=== PATIENT | female | born 1930 | race Caucasian/White ===

== ENCOUNTER 2016-11-23 11:50 | Inpatient (IN) | payer OTHER, MEDICARE ==
[~2016-11-23] VITALS: Ht 154.9 cm; Wt 68.2 kg
[~2016-11-23 11:50] MED LIST: ACIDOPHILUS1 EACH PO; ALLOPURINOL300 M1 PO; AMARYL 2 MG2 MG PO; ASPIR 8181 MG PO; ATIVAN0.5 M1 PO; BENAZEPRIL HCL20 MG PO; CALTRATE 600 +1 EACH PO; CEFTIN250 M1 PO; CENTRUM SILVER1 EAC1 PO; CEPHALEXIN250 M2 PO; CHROMIUM PIC1000 MCG PO; CO Q-10200 MG PO; CRANBERRY425 MG PO; ESTRACE42.5 GM VG; FISH OIL 1,2001 EAC2 PO; FUROSEMIDE40 M1 PO; GUAIFENESIN ER600 MG PO; ISOSORBIDE MONO60 M1 PO; JANUVIA100 M1 PO; KEFLEX500 MG PO; L-LYSINE500 M2 PO; MAGNESIUM400 M1 PO; METANX CAPSULE1 EACH PO; METFORMIN HCL1000 M1 PO; MOBIC15 M1 PO; NEURONTIN100 M1 PO; NITROFURANTOIN100 M4 PO; OMEPRAZOLE20 M2 PO; PRESERVISION A1 EAC1 PO; REFRESH TEARS15 ML OP; SIMVASTATIN40 M1 PO; SYNTHROID88 MCG PO; VITAMIN D-32000 UNI1 PO; VOLTAREN100 GM TOP; XARELTO20 M2 PO; ZITHROMAX500 M2 PO
[2016-11-23 13:00] LABS: ABSOLUTE BASOPHIL COUNT 0 /CUMM (0.0-0.2); ABSOLUTE EOSINOPHIL COUNT 0.2 /CUMM (0.0-0.7); ABSOLUTE LYMPH COUNT 2.2 /CUMM (1.2-3.4); ABSOLUTE MONOCYTE COUNT 0.8 /CUMM (0.10-0.60); BASOPHIL % 0.2 % (0.0-2.0); EOSINOPHIL % 1.4 % (0-5); GRANULOCYTE % 77.7 % (42.2-75.2); HEMATOCRIT 43.5 % (37-47); MEAN CORPUSCULAR HGB 32.1 PG (27.0-31.0); MEAN CORPUSCULAR HGB CONC 32.2 G/DL (33.0-37.0); MEAN CORPUSCULAR VOLUME 99.6 FL (81.0-99.0); PLATELET COUNT 216 /CUMM (130-400); RED BLOOD CELL CT 4.37 /CUMM (4.20-5.40); WHITE BLOOD CELL COUNT 14.2 /CUMM (4.8-10.8)
[2016-11-23 13:06] LABS: PT 13.7 SEC (9.4-12.5)
--- NOTE | 2016-11-23 13:11 | ED GI/GU/ABDOMINAL COMPLAINT ---
History of Present Illness General Chief Complaint: Abdominal Pain/Flank Pain Stated Complaint: UPPER ABDOMINAL PAIN Source: patient, family, old records, EMS Exam Limitations: no limitations Vital Signs & Intake/Output Vital Signs & Intake/Output Vital Signs Date Time Temp Pulse Resp B/P B/P Pulse O2 O2 Flow FiO2 Mean Ox Delivery Rate 11/23 1745 50 18 102/38 92 Nasal 5.0L Cannula 11/23 1647 97.0 / 1641 42 18 108/40 93 Nasal 3.0L Cannula / 1600 93 Nasal 3.0L Cannula / 1530 42 20 106/36 92 Nasal 3.0L Cannula / 1415 61 20 111/55 94 Nasal 3.0L Cannula / 1340 35 20 129/55 97 Nasal 3.0L Cannula / 1301 42 20 98/50 94 Nasal 2.0L Cannula / 1259 88 Room Air 11/23 1200 97.0 74 18 90/56 94 Room Air Allergies Coded Allergies: sulfamethoxazole (From BACTRIM) (RASH 10/01/15) thiopental (PER PT ONLY CAN HAVE A TEST DOSE 03/18/16) trimethoprim (From BACTRIM) (RASH 10/01/15) Reconcile Medications Allopurinol 300 MG TABLET 1 TAB PO DAILY KIDNEY HEALTH (Reported) Benazepril HCl 20 MG TABLET 1 TAB PO DAILY HIGH BLOOD PRESSURE (Reported) Calcium Carbonate/Vitamin D3 (Caltrate 600 + D Tablet) 600 MG-800 TABLET 1 TAB PO DAILY HEALTH SUPPLEMENT (Reported) Carboxymethylcellulose Sodium (Refresh Tears) 15 ML DROPS 1 DROP OP TID- 4XDAILY LUBRICANT- BOTH EYES (Reported) Cephalexin 250 MG CAPSULE 1 CAP PO EOD PROPHYLAXIS (Reported) Cholecalciferol (Vitamin D3) (Vitamin D-3) 2,000 UNIT CAPSULE 1 CAP PO D HEALTH SUPPLEMENT (Reported) Chromium Picolinate 1,000 MCG TABLET 0.5 TAB PO D HEALTH SUPPLEMENT (Reported ) Cranberry Extract (Cranberry) (Unknown Strength) CAPSULE (Unknown Dose) PO DAILY SUPPLEMENT (Reported) Diclofenac Sodium (Voltaren) 100 GM GEL..GRAM. 1 GM TOP EOD KNEES (Reported) apply to affected area(s) Estradiol (Estrace) (Unknown Strength) CREAM.APPL 1 TERESA VG QHS HRT (Reported) Folic Acid/Multivit-Min/Lutein (Centrum Silver Chewable Tablet) 400 MCG-250 MCG TAB.CHEW 1 TAB PO D HEALTH SUPPLEMENT (Reported) Furosemide 40 MG TABLET 1 TAB PO QAM HEART HEALTH (Reported) Gabapentin (Neurontin) 100 MG CAPSULE 1 CAP PO TID NERVE PAIN (Reported) Isosorbide Mononitrate (Isosorbide Mononitrate ER) 60 MG TAB.ER.24H 1 TAB PO DAILY HIGH BLOOD PRESSURE (Reported) Lactobacillus Acidophilus (Acidophilus) 1 EACH CAPSULE 1 CAP PO DAILY HEALTH SUPPLEMENT (Reported) Levomefolate/B6/B12/Algal Oil (Metanx Capsule) 1 EACH CAPSULE 1 CAP PO BID SUPPLEMENT (Reported) Levothyroxine Sodium (Synthroid) 88 MCG TABLET 1 TAB PO DAILY THYROID HEALTH (Reported) Lorazepam (Ativan) 0.5 MG TABLET 1 TAB PO QHS SLEEP HELP (Reported) Lysine (L-Lysine) 500 MG TABLET 1 TAB PO D HEALTH SUPPLEMENT (Reported) Magnesium Oxide (Magnesium) 400 MG CAPSULE 1 CAP PO DAILY HEALTH SUPPLEMENT ( Reported) Meloxicam (Mobic) 15 MG TABLET 1 TAB PO DAILY PRN PAIN Metformin HCl 1,000 MG TABLET 1 TAB PO BID DIABETES (Reported) [place]-3S/Dha/Epa/Fish Oil (Fish Oil 1,200 MG Softgel) 360-1,200MG CAPSULE 1 CAP PO D HEALTH SUPPLEMENT (Reported) Omeprazole 20 MG CAPSULE.DR 1 CAP PO DAILY ACID REFLUX (Reported) Rivaroxaban (Xarelto) 20 MG TABLET 1 TAB PO QPM BLOOD THINNER (Reported) with food Simvastatin (Simvastatin*) 40 MG TABLET 1 TAB PO QPM HIGH CHOLESTROL ( Reported) Sitagliptin Phosphate (Januvia) 100 MG TABLET 1 TAB PO QAM DIABETES (Reported ) Ubidecarenone (Co Q-10) (Unknown Strength) CAPSULE (Unknown Dose) PO DAILY SUPPLEMENT (Reported) Vit C/E/Zn/Coppr/Lutein/Zeaxan (Preservision Areds 2 Softgel) 1 EACH CAPSULE 1 CAP PO BID SUPPLEMENT (Reported) Triage Note: RECEIVED 86 YO FEMALE WILLAM FROM HOME WITH HX OF GALLSTONES AND CABG 1994, C/O UPPER ABDOMINAL PAIN X ONE HOUR WITH NAUSEA. B/P 90/56. O2 SATS 88% ON ROOM AIR. PT CONNECTED TO CM - A-FLUTTER WITH VR OF 57. PAIN LEVEL 7/10 AT PRESENT. Triage Nurses Notes Reviewed? yes LMP (ages 10-50): post menopausal ? n Is pt currently ? No Onset: Morning Duration: hour(s):, constant, continues in ED, getting worse Timing: recent history Quality/Severity: aching, sharpness, severe, vomiting Location: epigastric Radiation: no radiation Activities at Onset: none Prior Abdominal Problems: none Past Sexual History: Unobtainable at this time No Modifying Factors: none Associated Symptoms: abdominal pain, loss of appetite, nausea/vomiting HPI: Prior to admission after breakfast patient complains of epigastric pain described as sharp severe constant nonradiating associated with nausea vomiting feeling as if she's having a gallbladder attack. She denies fever chills chest pain cough shortness of breath headache dysuria rash bleeding previous episodes. Past History Travel History Traveled to [place] past 21 day No Medical History Any Pertinent Medical History? 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 No Review of Systems Review of Systems Constitutional: Reports: see HPI, malaise, weakness. EENTM: Reports: no symptoms. Respiratory: Reports: no symptoms. Cardiovascular: Reports: no symptoms. GI: Reports: see HPI, abdominal pain, nausea, vomiting. Genitourinary: Reports: no symptoms. Musculoskeletal: Reports: no symptoms. Skin: Reports: no symptoms. Neurological/Psychological: Reports: no symptoms. Hematologic/Endocrine: Reports: no symptoms. Immunologic/Allergic: Reports: no symptoms. All Other Systems: Reviewed and Negative Physical Exam Physical Exam General Appearance: well developed/nourished, alert, awake, anxious, severe distress Head: atraumatic, normal appearance Eyes: Bilateral: normal appearance, PERRL, EOMI, normal inspection. 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 Yes ASA ordered for poss ACS? No-ACS ruled out Severe Sepsis Present: No Septic Shock Present: No Progress Differential Diagnosis: biliary colic, cholecystitis, gastritis, pancreatitis, SBO Plan of Care: Orders Procedure Date/time Status Nothing by Mouth 11/24 B Active PROTHROMBIN TIME 11/24 0500 Active ICU LAB BUNDLE 11/24 0500 Active CBC WITHOUT DIFFERENTIAL 11/24 0500 Active TROPONIN LEVEL 11/24 0030 Active EKG 11/24 0030 Active Nothing by Mouth 11/23 D Complete ICU LAB BUNDLE 11/23 2200 Active ALKALINE PHOSPHATASE 11/23 2200 Active LACTIC ACID 11/23 1915 Active TROPONIN LEVEL 11/23 1830 Active EKG 11/23 1830 Active VRE ACTIVE SURVIELLANCE 11/23 1808 Active ACTIVE SURVEILLANCE NARES 11/23 1808 Active CULTURE,STOOL 11/23 1731 Active C.DIFFICILE 11/23 1731 Active Lab Add-on Test 11/23 1719 Active Pathway - chart 11/23 1657 Active URINALYSIS 11/23 1657 Active Code Status 11/23 1657 Active Keith, Insertion/Removal/Asses 11/23 1649 Active CULTURE,URINE 11/23 1649 Active US-LIMITED ABDOMEN 11/23 1635 Active BLOOD CULTURE 11/23 1558 Active Patient Data 11/23 1553 Active Admit to inpatient 11/23 1542 Active LACTIC ACID 11/23 1526 Complete EKG 11/23 1323 Active THYROID STIMULATING HORMONE 11/23 1237 Active THYROXINE 11/23 1237 Active LIPID PANEL 11/23 1237 Active B-TYPE NATRIURETIC PEP (BNP) 11/23 1237 Active Add-on Test (ER Only) 11/23 1234 Active BLOOD CULTURE 11/23 1226 Active TROPONIN LEVEL 11/23 1226 Active PROTHROMBIN TIME 11/23 1226 Complete MAGNESIUM 11/23 1226 Active LIPASE 11/23 1226 Active LACTIC ACID 11/23 1226 Active COMPREHENSIVE METABOLIC PANEL 11/23 1226 Active CBC WITHOUT DIFFERENTIAL 11/23 1226 Complete EKG 11/23 1202 Active Pathway - chart 11/23 UNK Active House Staff 11/23 UNK Active Lab Add-on Test 11/23 UNK Active VTE Mechanical Prophylaxis 11/23 UNK Active Vital Signs 11/23 UNK Active Telemetry/Seam Press Operator 11/23 UNK Active Intake & Output 11/23 UNK Active Hemoccult 11/23 UNK Active FingerStick- Glucose 11/23 UNK Active ECHOCARDIOGRAM 11/23 UNK Active Current Medications Sig/[place] Start time Last Medication Dose Stop Time Status Admin Ondansetron HCl 4 MG Q6P PRN 11/23 1815 UNVr (Zofran) Insulin Human Regular 0 Q6 11/23 1800 AC 11/23 (NovoLIN R) 1714 Lactated Ringer's 1,000 ML Q6H 11/23 1800 UNVr (Lactated Ringers) 11/23 2359 Atropine Sulfate 1 MG ONE PRN 11/23 1700 AC (Atropine) Morphine Sulfate 1 MG Q4P PRN 11/23 1700 AC (Morphine) Ondansetron HCl 4 MG ONCE ONE 11/23 1230 CAN (Zofran) 11/23 1231 Laboratory Tests 11/23/16 1657: TSH Cancelled 11/23/16 1614: Lactic Acid 3.1 H 11/23/16 1237: Anion Gap 11, Estimated GFR 53 L, BUN/Creatinine Ratio 35.0 H, Glucose 195 H, Lactic Acid 3.8 H, Calcium 8.7, Magnesium 3.6 H, Total Bilirubin 1.1, AST 463 H, ALT 163 H, Alkaline Phosphatase 281 H, Troponin I 0.04, Wbs-K-Jrlaniagnyl Pept 2160 H, Total Protein 6.7, Albumin 4.0, Globulin 2.7, Albumin/Globulin Ratio 1.5, Triglycerides 143, Cholesterol 143, LDL Cholesterol, Calc 16 L, HDL Cholesterol 99 H, Cholesterol/HDL Ratio 1, Lipase > 89753 H, TSH Pending, Thyroxine (T4) 12.3 H, PT 13.7 H, INR 1.31 H, CBC w Diff NO MAN DIFF REQ, RBC 4.37, MCV 99.6 H, MCH 32.1 H, RDW 16.0 H, MPV 10.0, Gran % 77.7 H, Lymphocytes % 15.4 L, Monocytes % 5.3, Eosinophils % 1.4, Basophils % 0.2, Absolute Granulocytes 11.0 H, Absolute Lymphocytes 2.2, Absolute Monocytes 0.8 H, Absolute Eosinophils 0.2, Absolute Basophils 0, PUBS MCHC 32.2 L Microbiology 11/23 180 UPPER RESP: Surveillance Culture - ORD 11/23 180 GI: Surveillance Culture - ORD 11/23 1731 STOOL: Clostridium difficile Toxin A & B - COLB 11/23 173 STOOL: Stool Culture - COLB 11/23 1649 URINE ROUT: Urine Culture - COLB 11/23 1614 BLOOD: Blood Culture - RECD 11/23 1404 BLOOD: Blood Culture - RECD Diagnostic Imaging: Viewed by Me: Radiology Read, CT Scan. Discussed w/RAD: Radiology Read, CT Scan. Radiology Impression: 1. A moderate amount of peripancreatic fluid in conjunction with peripancreatic inflammatory changes, indicative of acute pancreatitis. No rim-enhancing, organizing peripancreatic fluid collections are identified. 2. Multiple small layering gallstones within the gallbladder lumen. No intrahepatic biliary ductal dilatation. The distal common bile duct is mildly prominent and is visualized measuring up to 1 cm in diameter. There are no visible intraductal radiopaque stones. There is a minimal amount of pericholecystic fluid. Consider correlation with right upper quadrant abdominal ultrasound, which is more sensitive in evaluating the gallbladder. 3. Liquid stool within the right hemicolon as well as the transverse colon. This finding is nonspecific but can be seen in the setting of diarrhea. There are no CT findings indicative of mesenteric ischemia. Nevertheless, correlation with pancreatic enzyme levels is recommended. CXR Impression: No convincing acute pulmonary pathology. No evidence of overt pulmonary edema. Initial ED EKG: AFIB, LBBB, no ST T wave changes Prior EKG: unchanged Rhythm Strip: atrial flutter Comments: After n/v episode patient had aflutter with slow ventricular response in the mid 30s without hemodynamic instability or chest pain. Atropine administered with improvement in HR to mid 80s. HR slowly drifting into low 50s. Discussed with cardiology and GI. Limited fluid bolus secondary to ASCAD. Departure Departure Time of Disposition: 1530 Disposition: STILL A PATIENT Condition: Critical Clinical Impression Primary Impression: Pancreatitis, acute Qualifiers: Pancreatitis type: unspecified pancreatitis type Acute pancreatitis complication: unspecified Qualified Code: K85.90 - Acute pancreatitis without necrosis or infection, unspecified Secondary Impressions: Atrial fibrillation with slow ventricular response, Bradycardia Referrals: TIFF SMITH,LISET Doan (PCP/Family) Departure Forms: Customer Survey General Discharge Information Admission Note Spoke With: KALIN SMITH,SHERICE Documentation of Exam: Documentation of any treatments & extenuating circumstances including Concerns Regarding Discharge (functional status, medication knowledge or non-compliance, living conditions, etc.) that warrant an admission rather than observation: ICU monitoring NPO IV fluids IV antibiotics IV analgesia and IV antiemetics GI evaluation cardiology evaluation surgical evaluation medication adjustment continuing care discharge planning Critical Care Note Critical Care Note Critical Care Time: 30-74 min (45)
--- NOTE | 2016-11-23 13:47 | RADIOLOGY REPORT ---
EXAMINATION: XR PORTABLE CHEST CLINICAL INFORMATION: Chest pain. COMPARISON: Chest radiography 01/26/2016. TECHNIQUE: Portable frontal view of the chest was obtained. FINDINGS: Sternotomy wires with a fractured inferior most sternotomy wire demonstrated. Thoracic and abdominal surgical clips. The lungs are well expanded. No overt pulmonary edema. No consolidation suspicious for pneumonia, pleural effusion, pulmonary edema, or pneumothorax demonstrated. The cardiac contour is enlarged, similar to prior exam. Aortic atherosclerotic calcification. High riding bilateral humeri suspicious for rotator cuff pathology, left greater than right. IMPRESSION: No convincing acute pulmonary pathology. No evidence of overt pulmonary edema.
--- NOTE | 2016-11-23 15:34 | CT SCAN REPORT ---
EXAMINATION: CT ABDOMEN AND PELVIS WITH CONTRAST CLINICAL INFORMATION: Epigastric abdominal pain, nausea and vomiting. Elevated lipase levels. COMPARISON: CT abdomen and pelvis 03/18/2016. TECHNIQUE: Multidetector volumetric imaging was performed of the abdomen and pelvis before and after the IV administration of 94 mL of Optiray 320 intravenous contrast. Sagittal and coronal reformatted images were obtained on the technologist's workstation. DLP: 341 mGy-cm FINDINGS: LUNG BASES: Evaluation of the included lung bases demonstrates a moderate to large hiatal hernia the heart is enlarged. There are scattered groundglass opacities within the bilateral lung bases, which are entirely nonspecific. Rounded opacity at the periphery of the right lung base measuring 1.7 cm is nonspecific. It may represent focal atelectasis. No pleural effusions. LIVER, GALLBLADDER, AND BILIARY TREE: The liver is normal in size, shape, and attenuation. No focal hepatic lesion or intrahepatic biliary ductal dilatation is present. The gallbladder is physiologically distended. Numerous layering gallstones are identified within the gallbladder. The distal common bile duct is mildly prominent and is visualized measuring up to 1 cm in diameter. There are no radiopaque intraductal stones within the common bile duct. There is a minimal amount of pericholecystic fluid. PANCREAS: Generalized pancreatic atrophy. Of note, there are peripancreatic inflammatory changes and nonorganizing fluid surrounding the pancreas, suspicious for acute pancreatitis. No organizing peripancreatic fluid collections are identified. The splenic vein is patent. SPLEEN: Unremarkable. ADRENAL GLANDS: Unremarkable. KIDNEYS AND URETERS: A 3.0 x 3.3 cm renal cortical cysts visualized arising from the medial cortex of the upper pole of the right kidney. Surgical clips are present within the left upper quadrant of the abdomen. The left kidney is laterally displaced. No renal or ureteral stones are identified and there is no hydroureteronephrosis of either kidney or renal collecting system. BLADDER: Unremarkable. GASTROINTESTINAL TRACT: There is a moderate amount of liquid material within the large bowel, notably within the cecum and ascending colon as well as the transverse colon. This finding is entirely nonspecific but can be seen in the setting of diarrhea. Abdominal and pelvic bowel loops are normal in caliber, without findings indicative of small bowel obstruction or ileus. The appendix is not clearly visualized. There are no acute inflammatory changes within the right lower quadrant of the abdomen. No organizing intra-abdominal or pelvic fluid collections are identified and there is no free intraperitoneal air. ABDOMINAL WALL: No significant hernia is appreciated. LYMPH NODES: No significant abdominal or pelvic adenopathy. VASCULAR: Scattered atherosclerosis of the abdominal aorta and its branching vessels, without aneurysmal dilatation. PELVIC VISCERA: Unremarkable. OSSEOUS STRUCTURES: No acute osseous abnormality. Mechanical hardware related to total left hip arthroplasty. Also noted is mechanical hardware related to posterior lumbar fusion from L3 to L5. There are severe multilevel degenerative changes and facet arthrosis of the lumbar spine, notably at L2-L3, L4-L5 5 and L5-S1. There is grade 1 anterolisthesis of L3 on L4. No destructive osseous lesions are identified. IMPRESSION: 1. A moderate amount of peripancreatic fluid in conjunction with peripancreatic inflammatory changes, indicative of acute pancreatitis. No rim-enhancing, organizing peripancreatic fluid collections are identified. 2. Multiple small layering gallstones within the gallbladder lumen. No intrahepatic biliary ductal dilatation. The distal common bile duct is mildly prominent and is visualized measuring up to 1 cm in diameter. There are no visible intraductal radiopaque stones. There is a minimal amount of pericholecystic fluid. Consider correlation with right upper quadrant abdominal ultrasound, which is more sensitive in evaluating the gallbladder. 3. Liquid stool within the right hemicolon as well as the transverse colon. This finding is nonspecific but can be seen in the setting of diarrhea. There are no CT findings indicative of mesenteric ischemia. Nevertheless, correlation with pancreatic enzyme levels is recommended.
--- NOTE | 2016-11-23 16:50 | History & Physical ---
CHU AGUILAR MD 11/23/16 4868: General Information and HPI MD Statement: I have seen and personally examined PASCALE PATTERSON and documented this H&P. The patient is a 86 year old F who presented with a patient stated chief complaint of abdominal pain. Source of Information: patient, family, old records Exam Limitations: no limitations History of Present Illness: Ms. 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 Patient's daughter is also at bedside who helps provide more information during the history and physical. According to Pascale, she was in her normal state of health until this morning when around 10:15 AM she had sudden onset of acute, 10/10, stabbing epigastric pain. She had just got out of the bath when this occured and had breakfast (toast and one boiled egg) a few hours prior. This pain did not radiate and she had never experienced this before. It was associated with the subjective feeling of warmth, nausea and dry heaves. Of note, there is no recent outdoor activity and no recent history of tick bite; her history is also negative for recent sick contacts/exposure. Pascale denied chills, dizziness, chest pain, palpitations, shortness of breath, wheezing, vomiting, dysuria or constipation. Past surgical history is significant for fundoplication and CABG x 4. Social history is significant for 1 pack per week for years, though she quit when she was in her 40s. She denies alcohol or illicit drug use. She lives at home with her daughter and completed all of her ADLs/IADLs independantly. She does however use a walker when ambulating. Pascale follows with Dr. Miladis MD as her analytics consultant and her daughter reports it was previously suggested that Pascale should have a PPM (which she has, to present, refused). Allergies/Medications Allergies: Coded Allergies: sulfamethoxazole (From BACTRIM) (RASH 10/01/15) thiopental (PER PT ONLY CAN HAVE A TEST DOSE 03/18/16) trimethoprim (From BACTRIM) (RASH 10/01/15) Home Med list Allopurinol 300 MG TABLET 1 TAB PO DAILY KIDNEY HEALTH (Reported) Benazepril HCl 20 MG TABLET 1 TAB PO DAILY HIGH BLOOD PRESSURE (Reported) Calcium Carbonate/Vitamin D3 (Caltrate 600 + D Tablet) 600 MG-800 TABLET 1 TAB PO DAILY HEALTH SUPPLEMENT (Reported) Carboxymethylcellulose Sodium (Refresh Tears) 15 ML DROPS 1 DROP OP TID- 4XDAILY LUBRICANT- BOTH EYES (Reported) Cephalexin 250 MG CAPSULE 1 CAP PO EOD PROPHYLAXIS (Reported) Cholecalciferol (Vitamin D3) (Vitamin D-3) 2,000 UNIT CAPSULE 1 CAP PO D HEALTH SUPPLEMENT (Reported) Chromium Picolinate 1,000 MCG TABLET 0.5 TAB PO D HEALTH SUPPLEMENT (Reported ) Cranberry Extract (Cranberry) (Unknown Strength) CAPSULE (Unknown Dose) PO DAILY SUPPLEMENT (Reported) Diclofenac Sodium (Voltaren) 100 GM GEL..GRAM. 1 GM TOP EOD KNEES (Reported) apply to affected area(s) Estradiol (Estrace) (Unknown Strength) CREAM.APPL 1 TERESA VG QHS HRT (Reported) Folic Acid/Multivit-Min/Lutein (Centrum Silver Chewable Tablet) 400 MCG-250 MCG TAB.CHEW 1 TAB PO D HEALTH SUPPLEMENT (Reported) Furosemide 40 MG TABLET 1 TAB PO QAM HEART HEALTH (Reported) Gabapentin (Neurontin) 100 MG CAPSULE 1 CAP PO TID NERVE PAIN (Reported) Isosorbide Mononitrate (Isosorbide Mononitrate ER) 60 MG TAB.ER.24H 1 TAB PO DAILY HIGH BLOOD PRESSURE (Reported) Lactobacillus Acidophilus (Acidophilus) 1 EACH CAPSULE 1 CAP PO DAILY HEALTH SUPPLEMENT (Reported) Levomefolate/B6/B12/Algal Oil (Metanx Capsule) 1 EACH CAPSULE 1 CAP PO BID SUPPLEMENT (Reported) Levothyroxine Sodium (Synthroid) 88 MCG TABLET 1 TAB PO DAILY THYROID HEALTH (Reported) Lorazepam (Ativan) 0.5 MG TABLET 1 TAB PO QHS SLEEP HELP (Reported) Lysine (L-Lysine) 500 MG TABLET 1 TAB PO D HEALTH SUPPLEMENT (Reported) Magnesium Oxide (Magnesium) 400 MG CAPSULE 1 CAP PO DAILY HEALTH SUPPLEMENT ( Reported) Meloxicam (Mobic) 15 MG TABLET 1 TAB PO DAILY PRN PAIN Metformin HCl 1,000 MG TABLET 1 TAB PO BID DIABETES (Reported) [place]-3S/Dha/Epa/Fish Oil (Fish Oil 1,200 MG Softgel) 360-1,200MG CAPSULE 1 CAP PO D HEALTH SUPPLEMENT (Reported) Omeprazole 20 MG CAPSULE.DR 1 CAP PO DAILY ACID REFLUX (Reported) Rivaroxaban (Xarelto) 20 MG TABLET 1 TAB PO QPM BLOOD THINNER (Reported) with food Simvastatin (Simvastatin*) 40 MG TABLET 1 TAB PO QPM HIGH CHOLESTROL ( Reported) Sitagliptin Phosphate (Januvia) 100 MG TABLET 1 TAB PO QAM DIABETES (Reported ) Ubidecarenone (Co Q-10) (Unknown Strength) CAPSULE (Unknown Dose) PO DAILY SUPPLEMENT (Reported) Vit C/E/Zn/Coppr/Lutein/Zeaxan (Preservision Areds 2 Softgel) 1 EACH CAPSULE 1 CAP PO BID SUPPLEMENT (Reported) Compliance With Home Meds: GOOD Past History Travel History Traveled to [place] past 21 day No Medical History Neurological: NEROPATHY EENT: cataracts, DRY EYES Cardiovascular: AFIB, aflutter, CHF, hypertension, hyperlipidemia, myocardial infarction, CARDIAC ARREST Respiratory: NONE Gastrointestinal: GERD, GI BLEED Hepatic: NONE Renal: nephrolithiasis, UTI Musculoskeletal: gout Psychiatric: NONE Endocrine: diabetes, hypothyroidism Blood Disorders: NONE Cancer(s): NONE EHS ENGINEER/Reproductive: ENDOMETRIAL HYPERPLASIA Surgical History Surgical History: CABG Past Family/Social History Psychosocial History Where do you live? Home Who Do You Live With? child Services at Home: None Primary Language: Belarusian Smoking Status: Former Smoker ETOH Use: denies use Illicit Drug Use: denies illicit drug use Living Will? yes Functional Ability ADLs Independent: dressing, eating, toileting, bathing. Ambulation: walker IADLs Independent: shopping, housework, finances, food prep, telephone, transportation , medication admin. Sexual History Sexually Active No Review of Systems Review of Systems Constitutional: Denies: chills, malaise. EENTM: Denies: visual changes, hearing changes, nasal congestion. Cardiovascular: Denies: chest pain, edema, palpitations, peripheral edema. Respiratory: Denies: cough, short of breath, sputum production. GI: Reports: abdominal pain, nausea. Denies: bloating, constipation, diarrhea, distention, changes in stool, vomiting. Genitourinary: Denies: dysuria, hematuria. Musculoskeletal: Reports: joint pain (Bilateral legs, chronic). Denies: muscle pain (Bilateral legs, chronic). Skin: Denies: jaundice, rash. Neurological/Psychological: Denies: confusion, headache, numbness. Hematologic/Endocrine: Denies: bruising, bleeding. Immunologic/Allergic: Denies: splenectomy. All Other Systems: Reviewed and Negative Post Menopausal: Yes Exam & Diagnostic Data Last 24 Hrs of Vital Signs/I&O Vital Signs Date Time Temp Pulse Resp B/P B/P Pulse O2 O2 Flow FiO2 Mean Ox Delivery Rate 11/23 1647 97.0 11/23 1641 42 18 108/40 93 Nasal 3.0L Cannula 11/23 1600 93 Nasal 3.0L Cannula 11/23 1530 42 20 106/36 92 Nasal 3.0L Cannula 11/23 1415 61 20 111/55 94 Nasal 3.0L Cannula 11/23 1340 35 20 129/55 97 Nasal 3.0L Cannula 11/23 1301 42 20 98/50 94 Nasal 2.0L Cannula 11/23 1259 88 Room Air 11/23 1200 97.0 74 18 90/56 94 Room Air Intake & Output 11/23 1600 04 0800 11/23 0000 Intake Total 500 Output Total Balance 500 Intake, IV 500 Patient 143 lb Weight Weight Estimated Measurement Method Physical Exam General Appearance Alert, Oriented X3, Cooperative, Mild Distress Skin No Rashes, No Significant Lesion Skin Temp/Moisture Exam: Warm/Dry HEENT Atraumatic, EOMI, Mucous Membr. moist/pink Neck Supple, No JVD, No thryomegaly Lymphatic Cervical nl Cardiovascular Irregular, bradycardic Lungs Clear to Auscultation, Normal Air Movement Abdomen Tenderness to palpation in epigastric region, + Harriman sign, + BS x 4, minimally distended Neurological Normal Speech, Normal Tone, Sensation Intact Extremities No Clubbing, No Cyanosis, No Edema, No Tenderness/Swelling Vascular Pulses Symmetrical Last 24 Hrs of Labs/Mejia: Laboratory Tests 11/23/16 1614: Lactic Acid 3.1 H 11/23/16 1237: Anion Gap 11, Estimated GFR 53 L, BUN/Creatinine Ratio 35.0 H, Glucose 195 H, Lactic Acid 3.8 H, Calcium 8.7, Magnesium 3.6 H, Total Bilirubin 1.1, AST 463 H, ALT 163 H, Alkaline Phosphatase 281 H, Troponin I 0.04, Mdn-G-Gaxbheenhfy Pept 2160 H, Total Protein 6.7, Albumin 4.0, Globulin 2.7, Albumin/Globulin Ratio 1.5, Lipase > 68318 H, PT 13.7 H, INR 1.31 H, CBC w Diff NO MAN DIFF REQ, RBC 4.37, MCV 99.6 H, MCH 32.1 H, RDW 16.0 H, MPV 10.0, Gran % 77.7 H, Lymphocytes % 15.4 L, Monocytes % 5.3, Eosinophils % 1.4, Basophils % 0.2, Absolute Granulocytes 11.0 H, Absolute Lymphocytes 2.2, Absolute Monocytes 0.8 H, Absolute Eosinophils 0.2, Absolute Basophils 0, PUBS MCHC 32.2 L Microbiology 11/23 1649 URINE ROUT: Urine Culture - ORD 11/23 1614 BLOOD: Blood Culture - RECD 11/23 1404 BLOOD: Blood Culture - RECD Diagnostic Data EKG Results Atrial flutter, bradycardic with HR 39 bpm, IVCD, QTC 555. CXR Results FINDINGS: Sternotomy wires with a fractured inferior most sternotomy wire demonstrated. Thoracic and abdominal surgical clips. The lungs are well expanded. No overt pulmonary edema. No consolidation suspicious for pneumonia, pleural effusion, pulmonary edema, or pneumothorax demonstrated. The cardiac contour is enlarged, similar to prior exam. Aortic atherosclerotic calcification. High riding bilateral humeri suspicious for rotator cuff pathology, left greater than right. IMPRESSION: No convincing acute pulmonary pathology. No evidence of overt pulmonary edema. Other Results Abdominal/Pelvis CT: IMPRESSION: 1. A moderate amount of peripancreatic fluid in conjunction with peripancreatic inflammatory changes, indicative of acute pancreatitis. No rim-enhancing, organizing peripancreatic fluid collections are identified. 2. Multiple small layering gallstones within the gallbladder lumen. No intrahepatic biliary ductal dilatation. The distal common bile duct is mildly prominent and is visualized measuring up to 1 cm in diameter. There are no visible intraductal radiopaque stones. There is a minimal amount of pericholecystic fluid. Consider correlation with right upper quadrant abdominal ultrasound, which is more sensitive in evaluating the gallbladder. 3. Liquid stool within the right hemicolon as well as the transverse colon. This finding is nonspecific but can be seen in the setting of diarrhea. There are no CT findings indicative of mesenteric ischemia. Nevertheless, correlation with pancreatic enzyme levels is recommended. Assessment/Plan Assessment: Ms. Patterson is a pleasant 86 year old female with PMH type 2 diabetes mellitus, HTN, HLD, congestive heart failure with reduced ejection fraction (35- 40%), CAD, [place] s/p CABG, atrial fibrillation on xarelto, GERD, GI bleed and gout who presented to [facility] due to sudden-onset, 03/31, stabbing epigastric pain. In the ED: Vital signs showed T 97.0, HR 35-74, RR 18-20, BP 90/56 increased to 111/55 after fluids, O2 saturation 88-97% on 2-3 L NC. Labs were significant for: WBC 14.2 without bands, 77.7% granulocytes, H&H 14/ 43.5, Plt 216, Na 135, K 4.3, Cl 95, HCO3 29, BUN/cre 35/1, Glu 195, lactic acid 3.8, magnesium 3.6, TBili 1.1, AST 463, ALT 163, alk phos 281, troponon 0.04, normal lipid panel, lipase >10,000 and INR 1.31. EKG showed atrial flutter, bradycardia to 39 bpm and IVCD with WTC 355. CXR showed no acute pathology, no overt pulmonary edema. Abdominal/pelvis CT showed peripancratic fluid with inflammatory changes (no fluid collections seen). Multiple gallstones within the gallbladder lumen. Patient is currently admitted to the ICU and the following is the management: 1. Acute pancreatitis * Likely gallstone pancreatitis (elevated aminotransferases, ductal dilatation, high alk phos) * [place] 2 score = 10 * Admit to the ICU, close clinical monitoring * NPO, IVF hydration with LR at 150 cc/h x 1 bag then will reassess respiratory status to determine maitenance fluid rate * Pain control with IV morphine * GI consult placed in the ED, follow up recommendations * Trend ICU bundle, closely monitor electrolytes and renal function; trend lactic acid * Lipid panel within normal limits (no hypertriglyceridemia) * RUQ US for now to evaluate RUQ * Will discuss with family in AM about if back hardware is MRI compatible; if so , will obtain MRCP * Due to concern for cholangitis, will continue empiric IV unasyn * IV PPI * Repeat LFTs, alk phos in AM * Discussed case with Dr. Raz MD who suggests we may hold xarelto in the setting of possible impending surgical intervention and tomorrow may initiate IV heparin drip tomorrow when xarelto would be scheduled. * Cardiology also suggests no role from vitamin K unless vitamin K deficiency suspected. * Strict Is/Os, daily weights 2. Bradycardia in the setting of atrial fibrillation * Continuous telemetry monitoring (note patient has likely underlying conduction disease as IVCD appreciated) * Dr. Raz MD consulted in the ED, follow up recommendations * Pacer pads for bradycardia * Rule out ACS, first troponin/EKG negative, next trop/EKG at 630 PM, 12 AM * Atropine 1 mg PRN bradycardia (1 mg given already in the ED) * Hold magnesium as excess magnesium may contribute to bradycardia * Patient received her xarelto today; cardio suggests it is okay to continue to hold and initiate heparin drip tomorrow * F/U Lyme titer, TFTs 3. Transaminitis * Likely secondary to choledocholithiasis * Noted ductal dilatation on CT abdomen/pelvis * GI recommendations appreciated * Patient pending possible endoscopic or surgical intervention, patient NPO * Follow up RUQ US * IV PPI * Trend LFTs, alk phos * Hold statins, neprhotoxins 4. History of HTN, HLD * Monitor vital signs Q shift * Hold antihypertensives in the setting of borderline low BP * Hold statin 2/2 transaminitis 5. DM2 * As patient is NPO, use regular insulin Q6 * Accuchecks Q6 * IV hydration with LR per GI recommendations 6. Hypothyroidism * Follow up thyroid function tests * Restart thyroid supplementation IV if TFTs appropriate DNR/DNI Diet: NPO DVTP: ALPS Pain: Severe pain pathway As Ranked By This Provider Problem List: 1. Atrial fibrillation with slow ventricular response 2. Pancreatitis, acute Qualifiers Pancreatitis type: unspecified pancreatitis type Acute pancreatitis complication: unspecified Qualified Code: K85.90 - Acute pancreatitis without necrosis or infection, unspecified 3. Hyperlipemia 4. Atrial flutter 5. DNR (do not resuscitate) 6. DNI (do not intubate) 7. Hypertension 8. Diabetes 9. Hyponatremia 10. Leukocytosis Core Measures/Miscellaneous Acute Coronary Syndrome ACS Diagnosis: No Cerebrovascular Accident CVA/TIA Diagnosis: No Congestive Heart Failure CHF Diagnosis: No Venous Thromboembolism VTE Risk Factors: Acute medical illness, Age > 40 [facility] prophylaxis d/t: No contraindications No VTE Pharm Prophylaxis d/t: No contraindications VTE Diagnosis: No VTE Type: NONE VTE Confirmed by (Test): NONE Severe Sepsis Severe Sepsis Present: No Septic Shock Septic Shock Present: No BC x2: Yes Lactic Acid: Yes IV ABX Broad Spectrum: Yes Focused Exam Completed: Yes NS/LR 30ml/kg w/in 3hrs: Yes IV Vasopressors started: No Miscellaneous Documentation Attending Case Discussed With: Dr. Genaro MD Primary Care Physician: LISET MATTHEW MD Patient sees these Specialists Dr. [place], Cardiology Level of Patient Care: Critical Care (CRI) PATO SAUCEDO 11/23/16 1742: Resident Review Statement Resident Statement: examined this patient, discussed with mba intern, agreed with mba intern, discussed with family, reviewed EMR data (avail), discussed with nursing , reviewed images Other Findings: Ms. Patterson is a very pleasant 86-year-old woman with past medical history coronary artery disease status post CABG, atrial flutter on Xarelto, fundoplication, hypertension, hyperlipidemia, systolic dysfunction (EF 35-40%)- echo 2010 who presented to the hospital ED after developing sudden onset severe abdominal pain this morning. Patient came to the ED, where she was found to have leukocytosis, lipase levels beyond reference ranges, severe abdominal pain and CAT scan showing pancreatitis. This patient was also found to have a pulse of less than 40, in addition to her acute pancreatitis, will be admitted to critical care unit. [place] 2 score = 10, and age greater then 60 years and underlying cardiac disease requires her to be monitored in the ICU. 1. Acute pancreatitis: Admit to ICU. Fluid hydration at 100 mL per hour, given history of systolic dysfunction from echo done in 2010. Keep nothing by mouth. Pain control with IV morphine 1 mg every 4 hours when necessary, with caution, given risk of bradycardia with morphine. Monitor urine output regularly. Monitor electrolytes, LFTs and bilirubin. Ms. Patterson is a elderly woman with weighted AST, ALT, alkaline phosphatase. Although, she has no elevation in bilirubin currently, impending cholangitis is a valid concern, it is not uncommon for AST and ALT to be elevated early in the course of the obstruction and later patients can have elevations in serum bilirubin. Right upper quadrant ultrasound to rule out obstruction. GI evaluation. Will defer the use of antibiotics preemptively to GI. Hold all medications, medication list reviewed, benazepril and metformin can cause pancreatitis, if gallstone disease is ruled out. 2. Bradycardia, likely sick sinus syndrome: Rule out thyroid disease, infection and ACS. Check TSH and T4. Blood cultures and urine cultures, stool cultures and stool for C. difficile(given loose stools). Check troponin and EKG at 6:30 PM and midnight. Keep atropine at bedside, pacer pads on. May check Lyme's titer. Monitor electrolytes, and replete as appropriate to keep potassium greater than 4 and magnesium greater than 2. Magnesium of 3.6 noted, which can cause bradycardia. Since renal function is normal, cessation of magnesium therapy should allow prompt orthodox of normal magnesium levels. Check ICU bundle later tonight. Will refrain using Lasix or HCTZ, given her ongoing pancreatitis. Will defer use of Lasix and calcium gluconate to cardiology. Check Echo to assess EF and also rule out any structural heart disease. Once all these are ruled out, patient will require evaluation for sick sinus syndrome and possible pacemaker placement. Cardiology consult. Hold all oral medications. Accu-Cheks every 6 while nothing by mouth. Novolin R nothing by mouth scale. DNR/DNI. Currently anticoagulated with use of Xarelto this morning. Reevaluate anticoagulation with Xarelto tomorrow, pending clinical improvement. Nothing by mouth SHERICE LAM MD 11/26/16 1216: Attending MD Review Statement Attending Statement Attending MD Statement: examined this patient, discuss w/resident/PA/[employer] FABRICATOR, agreed w/resident/PA/[employer] FABRICATOR, discussed with family, reviewed EMR data (avail), discussed with nursing, discussed with case mgmt, reviewed images Attending Assessment/Plan: Also see my separate addendum. Nereida Lam
--- NOTE | 2016-11-23 17:20 | Cons- Gastroenterology ---
General Information and HPI Consulting Request Date of Consult: 11/23/16 (MD LIOR/GASTROENTEROLOGY) Requested By: Dr. Hassan, ED Reason for Consult: Acute pancreatitis Source of Information: patient, family History of Present Illness: 86-year-old female with known gallstones found incidentally on imaging several years ago. She had 2 brief (approximately 50 minutes) epigastric pain attacks this year. She had the acute onset of severe epigastric pain without radiation this morning, accompanied by nausea and dry heaves (status post fundoplication for GERD). She's had no fever, chills, sweats. She denies antecedent heartburn , dyspepsia, GI bleeding, or other pain. She had a GI bleed secondary to gastric ulcers in 2010, while on aspirin; re-endoscopy verified healing. The home medication list includes meloxicam and omeprazole. She has chronic constipation for which she takes milk of magnesia daily. She is anticoagulated for atrial flutter. She is not aware of previous liver disease or abnormal liver tests. Allergies/Medications Allergies: Coded Allergies: sulfamethoxazole (From BACTRIM) (RASH 10/01/15) thiopental (PER PT ONLY CAN HAVE A TEST DOSE 03/18/16) trimethoprim (From BACTRIM) (RASH 10/01/15) Home Med List: Allopurinol 300 MG TABLET 1 TAB PO DAILY KIDNEY HEALTH (Reported) Benazepril HCl 20 MG TABLET 1 TAB PO DAILY HIGH BLOOD PRESSURE (Reported) Calcium Carbonate/Vitamin D3 (Caltrate 600 + D Tablet) 600 MG-800 TABLET 1 TAB PO DAILY HEALTH SUPPLEMENT (Reported) Carboxymethylcellulose Sodium (Refresh Tears) 15 ML DROPS 1 DROP OP TID- 4XDAILY LUBRICANT- BOTH EYES (Reported) Cephalexin 250 MG CAPSULE 1 CAP PO EOD PROPHYLAXIS (Reported) Cholecalciferol (Vitamin D3) (Vitamin D-3) 2,000 UNIT CAPSULE 1 CAP PO D HEALTH SUPPLEMENT (Reported) Chromium Picolinate 1,000 MCG TABLET 0.5 TAB PO D HEALTH SUPPLEMENT (Reported ) Cranberry Extract (Cranberry) (Unknown Strength) CAPSULE (Unknown Dose) PO DAILY SUPPLEMENT (Reported) Diclofenac Sodium (Voltaren) 100 GM GEL..GRAM. 1 GM TOP EOD KNEES (Reported) apply to affected area(s) Estradiol (Estrace) (Unknown Strength) CREAM.APPL 1 TERESA VG QHS HRT (Reported) Folic Acid/Multivit-Min/Lutein (Centrum Silver Chewable Tablet) 400 MCG-250 MCG TAB.CHEW 1 TAB PO D HEALTH SUPPLEMENT (Reported) Furosemide 40 MG TABLET 1 TAB PO QAM HEART HEALTH (Reported) Gabapentin (Neurontin) 100 MG CAPSULE 1 CAP PO TID NERVE PAIN (Reported) Isosorbide Mononitrate (Isosorbide Mononitrate ER) 60 MG TAB.ER.24H 1 TAB PO DAILY HIGH BLOOD PRESSURE (Reported) Lactobacillus Acidophilus (Acidophilus) 1 EACH CAPSULE 1 CAP PO DAILY HEALTH SUPPLEMENT (Reported) Levomefolate/B6/B12/Algal Oil (Metanx Capsule) 1 EACH CAPSULE 1 CAP PO BID SUPPLEMENT (Reported) Levothyroxine Sodium (Synthroid) 88 MCG TABLET 1 TAB PO DAILY THYROID HEALTH (Reported) Lorazepam (Ativan) 0.5 MG TABLET 1 TAB PO QHS SLEEP HELP (Reported) Lysine (L-Lysine) 500 MG TABLET 1 TAB PO D HEALTH SUPPLEMENT (Reported) Magnesium Oxide (Magnesium) 400 MG CAPSULE 1 CAP PO DAILY HEALTH SUPPLEMENT ( Reported) Meloxicam (Mobic) 15 MG TABLET 1 TAB PO DAILY PRN PAIN Metformin HCl 1,000 MG TABLET 1 TAB PO BID DIABETES (Reported) [place]-3S/Dha/Epa/Fish Oil (Fish Oil 1,200 MG Softgel) 360-1,200MG CAPSULE 1 CAP PO D HEALTH SUPPLEMENT (Reported) Omeprazole 20 MG CAPSULE.DR 1 CAP PO DAILY ACID REFLUX (Reported) Rivaroxaban (Xarelto) 20 MG TABLET 1 TAB PO QPM BLOOD THINNER (Reported) with food Simvastatin (Simvastatin*) 40 MG TABLET 1 TAB PO QPM HIGH CHOLESTROL ( Reported) Sitagliptin Phosphate (Januvia) 100 MG TABLET 1 TAB PO QAM DIABETES (Reported ) Ubidecarenone (Co Q-10) (Unknown Strength) CAPSULE (Unknown Dose) PO DAILY SUPPLEMENT (Reported) Vit C/E/Zn/Coppr/Lutein/Zeaxan (Preservision Areds 2 Softgel) 1 EACH CAPSULE 1 CAP PO BID SUPPLEMENT (Reported) Current Medications: Current Medications Sig/Chinyere Start time Last Medication Dose Route Stop Time Status Admin Acetaminophen 0 .STK-MED ONE 11/23 1246 DC IV Acetaminophen 1,000 MG ONCE ONE 11/23 1230 DC 11/23 IV 11/23 1231 1256 Ampicillin Sodium/ 0 .STK-MED ONE 11/23 1624 DC Sulbactam Sodium .ROUTE Ampicillin Sodium/ 3,000 MG ONCE ONE 11/23 1600 DC 06/04 Sulbactam Sodium IV 06 1629 1600 Sodium Chloride 100 ML Atropine Sulfate 1 MG ONE PRN 11/23 1700 UNVr IV Atropine Sulfate 0 .STK-MED ONE 11/23 1346 DC .ROUTE Atropine Sulfate 1 MG ONCE ONE 11/23 1345 DC 06/ IV PUSH 06/ 1346 1354 Famotidine 0 .STK-MED ONE 11/23 1247 DC IV Famotidine 20 MG ONCE ONE 11/23 1245 DC 06/ IV 06/ 1246 1256 Insulin Human Regular 0 Q6 11/23 1800 UNVr SC Metoclopramide HCl 0 .STK-MED ONE 11/23 1247 DC .ROUTE Metoclopramide HCl 10 MG ONCE ONE 11/23 1245 DC 06/ IV 06/04 1246 1256 Morphine Sulfate 1 MG Q4P PRN 11/23 1700 UNVr IV Morphine Sulfate 2 MG ONCE ONE 11/23 1345 DC 06/04 IV 06/04 1346 1345 Morphine Sulfate 0 .STK-MED ONE 11/23 1340 DC .ROUTE Ondansetron HCl 0 .STK-MED ONE 11/23 1338 DC .ROUTE Ondansetron HCl 4 MG ONCE ONE 11/23 1330 DC 06/04 IV 06/04 1331 1344 Ondansetron HCl 4 MG ONCE ONE 11/23 1230 CAN IV 06/ 1231 Sodium Chloride 1,000 ML BOLUS ONE 11/23 1400 DC 06/04 IV 06/04 1459 1357 Sodium Chloride 500 ML BOLUS ONE 11/23 1245 DC 06/04 IV 06/04 1344 1256 Past History Travel History Traveled to [place] past 21 day No Medical History Neurological: NEROPATHY EENT: cataracts, DRY EYES Cardiovascular: AFIB, aflutter, CHF, hypertension, hyperlipidemia, myocardial infarction, CARDIAC ARREST Respiratory: NONE Gastrointestinal: GERD, GI BLEED Hepatic: NONE Renal: nephrolithiasis, UTI Musculoskeletal: gout Psychiatric: NONE Endocrine: diabetes, hypothyroidism Blood Disorders: NONE Cancer(s): NONE 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 child Services at Home: None Primary Language: Somali Employment History Employment: Retired Profession/Employer: [employer] Review of Systems Review of Systems Constitutional: Denies: chills, fever, unexplained weight loss. EENTM: Denies: icterus, epistaxis. Cardiovascular: Denies: chest pain, peripheral edema, syncope. Respiratory: Denies: cough, short of breath. GI: Reports: see HPI. Genitourinary: Reports: frequency. Denies: dysuria, hematuria (frequent UTIs). Musculoskeletal: Denies: muscle stiffness, neck pain. Skin: Denies: jaundice, lesions. Neurological/Psychological: Denies: cognitive dysfunction, confusion. Hematologic/Endocrine: Denies: bruising, bleeding. Exam & Diagnostic Data Vital Signs and I&O Vital Signs Date Time Temp Pulse Resp B/P B/P Pulse O2 O2 Flow FiO2 Mean Ox Delivery Rate 11/23 1647 97.0 11/23 1641 42 18 108/40 93 Nasal 3.0L Cannula 11/23 1600 93 Nasal 3.0L Cannula 11/23 1530 42 20 106/36 92 Nasal 3.0L Cannula 11/23 1415 61 20 111/55 94 Nasal 3.0L Cannula 11/23 1340 35 20 129/55 97 Nasal 3.0L Cannula 11/23 1301 42 20 98/50 94 Nasal 2.0L Cannula 11/23 1259 88 Room Air 11/23 1200 97.0 74 18 90/56 94 Room Air Intake & Output 11/23 1600 06/04 0400 /03 1600 06/03 0400 06/ 1600 06/ 0400 Intake Total 500 Output Total Balance 500 Intake, IV 500 Patient 143 lb Weight Weight Estimated Measurement Method Physical Exam: Ill-appearing, elderly white female. Calm, cooperative, oriented. Skin with pallor, no lesions/rash/jaundice. No adenopathy. No scleral icterus. No oropharyngeal lesion. Neck supple without thyromegaly or mass. Sternotomy scar. Heart with bradycardia, and 1/6 systolic murmur. Lungs clear bilaterally , anterolaterally. Abdomen with midline scar, nondistended with normal bowel sounds; there is tenderness to mild palpation of the upper abdomen, without mass or organomegaly. Extremities without clubbing, cyanosis or edema. Pulses 1+ bilaterally. Results Pertinent Lab Results: Laboratory Tests 11/23 11/23 1614 1237 Chemistry Sodium (137 - 145 mmol/L) 135 L Potassium (3.5 - 5.1 mmol/L) 4.3 Chloride (98 - 107 mmol/L) 95 L Carbon Dioxide (22 - 30 mmol/L) 29 Anion Gap (5 - 16) 11 BUN (7 - 17 mg/dL) 35 H Creatinine (0.5 - 1.0 mg/dL) 1.0 Estimated GFR (>60 ml/min) 53 L BUN/Creatinine Ratio (7 - 25 %) 35.0 H Glucose (65 - 99 mg/dL) 195 H Lactic Acid (0.7 - 2.1 mmol/L) 3.1 H 3.8 H Calcium (8.4 - 10.2 mg/dL) 8.7 Magnesium (1.6 - 2.3 mg/dL) 3.6 H Total Bilirubin (0.2 - 1.3 mg/dL) 1.1 AST (14 - 36 U/L) 463 H ALT (9 - 52 U/L) 163 H Alkaline Phosphatase (<127 U/L) 281 H Troponin I (< 0.11 ng/ml) 0.04 Xqs-[id number]-Kddrjqypyay Pept (<125 pg/mL) 2160 H Total Protein (6.3 - 8.2 g/dL) 6.7 Albumin (3.5 - 5.0 g/dL) 4.0 Globulin (1.9 - 4.2 gm/dL) 2.7 Albumin/Globulin Ratio (1.1 - 2.2 %) 1.5 Lipase (23 - 300 U/L) > 26659 H Coagulation PT (9.4 - 12.5 SEC) 13.7 H INR (0.90 - 1.19) 1.31 H Hematology CBC w Diff NO MAN DIFF REQ WBC (4.8 - 10.8 /CUMM) 14.2 H RBC (4.20 - 5.40 /CUMM) 4.37 Hgb (12.0 - 16.0 G/DL) 14.0 Hct (37 - 47 %) 43.5 MCV (81.0 - 99.0 FL) 99.6 H MCH (27.0 - 31.0 PG) 32.1 H RDW (11.5 - 14.5 %) 16.0 H Plt Count (130 - 400 /CUMM) 216 MPV (7.4 - 10.4 FL) 10.0 Gran % (42.2 - 75.2 %) 77.7 H Lymphocytes % (20.5 - 51.1 %) 15.4 L Monocytes % (1.7 - 9.3 %) 5.3 Eosinophils % (0 - 5 %) 1.4 Basophils % (0.0 - 2.0 %) 0.2 Absolute Granulocytes (1.4 - 6.5 /CUMM) 11.0 H Absolute Lymphocytes (1.2 - 3.4 /CUMM) 2.2 Absolute Monocytes (0.10 - 0.60 /CUMM) 0.8 H Absolute Eosinophils (0.0 - 0.7 /CUMM) 0.2 Absolute Basophils (0.0 - 0.2 /CUMM) 0 PUBS MCHC (33.0 - 37.0 G/DL) 32.2 L Imaging/Other Studies: Cardiac monitoring demonstrates atrial flutter, with bradycardia (40s) CT scan of the abdomen/pelvis: * Moderate tolarge hiatal hernia * Heart is enlarged. * LIVER, GALLBLADDER, AND BILIARY TREE: The liver is normal in size, shape, and attenuation. No focal hepatic lesion or intrahepatic biliary ductal dilatation is present. The gallbladder is physiologically distended. Numerous layering gallstones are identified within the gallbladder. The distal common bile duct is mildly prominent and is visualized measuring up to 1 cm in diameter. There are no radiopaque intraductal stones within the common bile duct. There is a minimal amount of pericholecystic fluid. * PANCREAS: Generalized pancreatic atrophy. Of note, there are peripancreatic inflammatory changes and nonorganizing fluid surrounding the pancreas, suspicious for acute pancreatitis. No organizing peripancreatic fluid collections are identified. The splenic vein is patent. * GASTROINTESTINAL TRACT: There is a moderate amount of liquid material within the large bowel, notably within the cecum and ascending colon as well as the transverse colon. This finding is entirely nonspecific but can be seen in the setting of diarrhea. Abdominal and pelvic bowel loops are normal in caliber, without findings indicative of small bowel obstruction or ileus. The appendix is not clearly visualized. There are no acute inflammatory changes within the right lower quadrant of the abdomen. No organizing intra-abdominal or pelvic fluid collections are identified and there is no free intraperitoneal air. ABDOMINAL WALL: No significant hernia is appreciated. LYMPH NODES: No significant abdominal or pelvic adenopathy. VASCULAR: Scattered atherosclerosis of the abdominal aorta and its branching vessels, without aneurysmal dilatation. PELVIC VISCERA: Unremarkable. IMPRESSION: 1. A moderate amount of peripancreatic fluid in conjunction with peripancreatic inflammatory changes, indicative of acute pancreatitis. No rim-enhancing, organizing peripancreatic fluid collections are identified. 2. Multiple small layering gallstones within the gallbladder lumen. No intrahepatic biliary ductal dilatation. The distal common bile duct is mildly prominent and is visualized measuring up to 1 cm in diameter. There are no visible intraductal radiopaque stones. There is a minimal amount of pericholecystic fluid. Consider correlation with right upper quadrant abdominal ultrasound, which is more sensitive in evaluating the gallbladder. Assessment/Plan Assessment/Recommendations: Acute gallstone pancreatitis, likely secondary to choledocholithiasis (elevated alkaline phosphatase and aminotransferases, ductal dilatation). No complete obstruction (normal bilirubin) nor cholangitis. Concerning for advanced age and cardiac comorbidities, probable early hemoconcentration (elevated BUN and hemoglobin), and accompanying bradycardia. Recommendations * Aggressive IV hydration (e.g. 150 mL per hour) with Ringer's lactate for 6 hours only, followed by decreasing the rate and monitoring for CHF. * Keith catheter; careful monitoring of input and output * Parenteral analgesia and antiemetics as needed * Cardiology consultation regarding bradycardia * Optimally, would hold anticoagulation in anticipation of possible endoscopic or surgical intervention * Administered vitamin K 10 mg subcutaneous, and follow-up INR tomorrow * Follow CBC and liver enzymes carefully * MRCP to assess for choledocholithiasis (unless contraindicated because of back hardware, in which case would obtain ultrasound) * Agree with prophylactic antibiotics * IV PPI * Emergent ERCP with development of cholangitis Copies To: ANN SMITH,JOSE De Jesus; TIFF SMITH,LISET Doan Consult Acknowledgment - Thank you for your consult request.
--- NOTE | 2016-11-23 18:03 | PN- Att Addend ---
Attending Addendum Attending Brief Note 86 y/o F with pmh sig for type 2 diabetes mellitus, HTN, HLD, congestive heart failure with reduced ejection fraction (35-40%) last ECHO 2010, CAD, [place] s/p CABG , atrial fibrillation/flutter on xarelto, GERD, GIB and gout presented to the emergency room with complain off epigastric as well as left upper quadrant pain. This all started in the morning. Patient went over the republican yesterday but denies eating any fatty foods. She ate a regular breakfast which included eggs and these dose this morning. She complains of severe intense pain in the epigastrium and left upper quadrant. It is sharp. She was also dry heaving. She had a history of hiatal hernia repair years ago and according to her daughter she never throws up just try heaves. In the emergency room patient was found to be significantly bradycardic to 30s to 40s. She also had high magnesium level as well as high lactate. Patient also has abnormal LFTs and very high lipase levels. She denies any fevers or chills currently. She denies any urinary complaints. Patient has chronic constipation. Vital Signs Date Time Temp Pulse Resp B/P B/P Pulse O2 O2 Flow FiO2 Mean Ox Delivery Rate 11/23 1745 50 18 102/38 92 Nasal 5.0L Cannula 11/23 1647 97.0 11/23 1641 42 18 108/40 93 Nasal 3.0L Cannula 11/23 1600 93 Nasal 3.0L Cannula 11/23 1530 42 20 106/36 92 Nasal 3.0L Cannula 11/23 1415 61 20 111/55 94 Nasal 3.0L Cannula 11/23 1340 35 20 129/55 97 Nasal 3.0L Cannula 11/23 1301 42 20 98/50 94 Nasal 2.0L Cannula 11/23 1259 88 Room Air 11/23 1200 97.0 74 18 90/56 94 Room Air on exam; aox3, mild- moderate distress. cv; s1,s2, irregular, bradycardia. resp; clear abd; soft, tender in epigastrium, bs+ ext; no edema. Laboratory Tests 11/23 11/23 11/23 1657 1614 1237 Chemistry Sodium (137 - 145 mmol/L) 135 L Potassium (3.5 - 5.1 mmol/L) 4.3 Chloride (98 - 107 mmol/L) 95 L Carbon Dioxide (22 - 30 mmol/L) 29 Anion Gap (5 - 16) 11 BUN (7 - 17 mg/dL) 35 H Creatinine (0.5 - 1.0 mg/dL) 1.0 Estimated GFR (>60 ml/min) 53 L BUN/Creatinine Ratio (7 - 25 %) 35.0 H Glucose (65 - 99 mg/dL) 195 H Lactic Acid (0.7 - 2.1 mmol/L) 3.1 H 3.8 H Calcium (8.4 - 10.2 mg/dL) 8.7 Magnesium (1.6 - 2.3 mg/dL) 3.6 H Total Bilirubin (0.2 - 1.3 mg/dL) 1.1 AST (14 - 36 U/L) 463 H ALT (9 - 52 U/L) 163 H Alkaline Phosphatase (<127 U/L) 281 H Troponin I (< 0.11 ng/ml) 0.04 Avn-[id number] Pept (<125 pg/mL) 2160 H Total Protein (6.3 - 8.2 g/dL) 6.7 Albumin (3.5 - 5.0 g/dL) 4.0 Globulin (1.9 - 4.2 gm/dL) 2.7 Albumin/Globulin Ratio (1.1 - 2.2 %) 1.5 Triglycerides (<150 mg/dL) 143 Cholesterol (<200 MG/DL) 143 LDL Cholesterol, Calc (65 - 129 mg/dL) 16 L HDL Cholesterol (40 - 60 mg/dL) 99 H Cholesterol/HDL Ratio (0.00 - 4.23 %) 1 Lipase (23 - 300 U/L) > 55876 H TSH (0.270 - 4.200 uIU/mL) Cancelled Pending Thyroxine (T4) (4.5 - 10.9 ug/dL) Pending Coagulation PT (9.4 - 12.5 SEC) 13.7 H INR (0.90 - 1.19) 1.31 H Hematology CBC w Diff NO MAN DIFF REQ WBC (4.8 - 10.8 /CUMM) 14.2 H RBC (4.20 - 5.40 /CUMM) 4.37 Hgb (12.0 - 16.0 G/DL) 14.0 Hct (37 - 47 %) 43.5 MCV (81.0 - 99.0 FL) 99.6 H MCH (27.0 - 31.0 PG) 32.1 H RDW (11.5 - 14.5 %) 16.0 H Plt Count (130 - 400 /CUMM) 216 MPV (7.4 - 10.4 FL) 10.0 Gran % (42.2 - 75.2 %) 77.7 H Lymphocytes % (20.5 - 51.1 %) 15.4 L Monocytes % (1.7 - 9.3 %) 5.3 Eosinophils % (0 - 5 %) 1.4 Basophils % (0.0 - 2.0 %) 0.2 Absolute Granulocytes (1.4 - 6.5 /CUMM) 11.0 H Absolute Lymphocytes (1.2 - 3.4 /CUMM) 2.2 Absolute Monocytes (0.10 - 0.60 /CUMM) 0.8 H Absolute Eosinophils (0.0 - 0.7 /CUMM) 0.2 Absolute Basophils (0.0 - 0.2 /CUMM) 0 PUBS MCHC (33.0 - 37.0 G/DL) 32.2 L EKG>>> Afluter with bradycardia. CT abd/pelvis: IMPRESSION: 1. A moderate amount of peripancreatic fluid in conjunction with peripancreatic inflammatory changes, indicative of acute pancreatitis. No rim-enhancing, organizing peripancreatic fluid collections are identified. 2. Multiple small layering gallstones within the gallbladder lumen. No intrahepatic biliary ductal dilatation. The distal common bile duct is mildly prominent and is visualized measuring up to 1 cm in diameter. There are no visible intraductal radiopaque stones. There is a minimal amount of pericholecystic fluid. Consider correlation with right upper quadrant abdominal ultrasound, which is more sensitive in evaluating the gallbladder. 3. Liquid stool within the right hemicolon as well as the transverse colon. This finding is nonspecific but can be seen in the setting of diarrhea. There are no CT findings indicative of mesenteric ischemia. Nevertheless, correlation with pancreatic enzyme levels is recommended. CXR: IMPRESSION: No convincing acute pulmonary pathology. No evidence of overt pulmonary edema. A/P; 86 y/o F with pmh sig for type 2 diabetes mellitus, HTN, HLD, congestive heart failure with reduced ejection fraction (35-40%) last ECHO 2010, CAD, [place] s/ p CABG, atrial fibrillation/flutter on xarelto, GERD, GIB and gout will be admitted with acute bronchitis which is likely gallstone induced. Patient also has hypomagnesemia. Patient also has a flutter with significant bradycardia. Patient will be admitted to ICU. Patient received intravenous emergency room. Will keep atropine at the bedside, pacer pads on. Cardiology will be consulted. Please obtain echocardiogram. Please trend troponins. Patient has been seen by GI. She will be kept on IV fluids. Pain management with analgesics. Antiemetics will be used for nausea and dry heaving. Please monitor fluid status. Please keep her on IV Unasyn. Trend LFTs in the morning. If there are any signs of cholangitis, GI needs to be notified right away for urgent ERCP. Please order MRCP in the morning. Please monitor magnesium levels. Please recheck her lactate later today. Patient is also on Xarelto, please confirm with cardiology if this can be held in case if she needs to go for a procedure. DVT Px; Xarelto, in case if held theh use hep sq. DNR/I.
[2016-11-24] VITALS: BP 140/60
[2016-11-24 01:02] LABS: ABSOLUTE BASOPHIL COUNT 0 /CUMM (0.0-0.2); ABSOLUTE EOSINOPHIL COUNT 0 /CUMM (0.0-0.7); ABSOLUTE GRANULOCYTE CT 15.8 /CUMM (1.4-6.5); ABSOLUTE LYMPH COUNT 0.7 /CUMM (1.2-3.4); ABSOLUTE MONOCYTE COUNT 0.8 /CUMM (0.10-0.60); BASOPHIL % 0 % (0.0-2.0); EOSINOPHIL % 0 % (0-5); GRANULOCYTE % 91.3 % (42.2-75.2); MEAN CORPUSCULAR HGB 31.8 PG (27.0-31.0); MEAN CORPUSCULAR HGB CONC 32.4 G/DL (33.0-37.0); MEAN PLATELET VOLUME 9.5 FL (7.4-10.4); PLATELET COUNT 186 /CUMM (130-400); RBC DISTRIBUTION WIDTH 15.4 % (11.5-14.5); RED BLOOD CELL CT 3.81 /CUMM (4.20-5.40); WHITE BLOOD CELL COUNT 17.3 /CUMM (4.8-10.8)
[2016-11-24 01:04] LABS: HEMATOCRIT 37.3 % (37-47)
--- NOTE | 2016-11-24 05:02 | Event Note ---
Event Note Event Note: When compared to her initial labs, patient's 7:30 ICU bundle showed an increase in AST from 463-->3093. Additionally her ALT went from 163-->1310. Patient was assessed at bedside. Her initial hypotension had resolved. Her blood pressure went from 90s to 130s systolic. She is mentating well. She denied any abdominal pain. Case was discussed with attending, who agreed with plan to inform GI of increase in lab values in a.m as long as patient was hemodynamically stable. Patient's midnight labs revealed: Increase in white count from 14.2--->17.3 now with 7 bands Hemoglobin 14--->12.1; hematocrit 43.5--->37.3 Lactic acid increased from 2.3--->2.6 calcium 7.9 Magnesium 3.6-->3.8 T bili 1.9-->1.9 AST 3093--> 2398. ALT 1310--> 1240. Alkaline phosphatase 284; Pt con't to be hemodynamically stable. Mentating well. 6:00 AM- Dr. Jaimes made aware of pt's status and lab findings. Pt will likely need MRCP if her hardware is compatible. Otherwise, RUQ US pending in AM.
[2016-11-24 05:31] LABS: ABSOLUTE BASOPHIL COUNT 0 /CUMM (0.0-0.2); ABSOLUTE EOSINOPHIL COUNT 0 /CUMM (0.0-0.7); ABSOLUTE GRANULOCYTE CT 16.3 /CUMM (1.4-6.5); ABSOLUTE LYMPH COUNT 0.9 /CUMM (1.2-3.4); ABSOLUTE MONOCYTE COUNT 0.9 /CUMM (0.10-0.60); BASOPHIL % 0 % (0.0-2.0); EOSINOPHIL % 0 % (0-5); GRANULOCYTE % 89.9 % (42.2-75.2); HEMATOCRIT 39.1 % (37-47); MEAN CORPUSCULAR HGB 32.2 PG (27.0-31.0); MEAN CORPUSCULAR HGB CONC 32.3 G/DL (33.0-37.0); MEAN CORPUSCULAR VOLUME 99.6 FL (81.0-99.0); MEAN PLATELET VOLUME 10.2 FL (7.4-10.4); PLATELET COUNT 195 /CUMM (130-400); PT 11.5 SEC (9.4-12.5); RBC DISTRIBUTION WIDTH 15.9 % (11.5-14.5); RED BLOOD CELL CT 3.93 /CUMM (4.20-5.40); WHITE BLOOD CELL COUNT 18.1 /CUMM (4.8-10.8)
--- NOTE | 2016-11-24 06:55 | PN- Resident CRCU ---
Subjective HPI/CRCU Issues: Patient seen and examined at bedside this AM. She reports the pain in her abdomen has shifted to the left side. She reports hunger and is asking for food; she was told she needs to remain NPO for pancreatitis as well as for possible GI intervention. Patient is asked regarding if her spinal hardware is MRI compatible and she is unsure. She had the procedure at [facility] with Dr. Jose Enrique MD. Daughter was contacted this AM and is also unsure whether or not the spine hardware is MRI compatible. MRI was called and reported hardware is likely MRI compatible and we should order MRCP. 24 Hour Events: air sampling and monitoring: Atrial flutter with noted bradycardia to 44 bpm but HR has been adequate through the early AM hours and is now 60s-70s. Vital signs last 24 hours: T 97.2-99.8, HR 53-72, RR 20-34, O2 93-100% on 3 L NC. Total intake las 24 hours: 1456 cc Total output last 24 hours: 595 cc Impression/Plan Impression/Problem List Impression: Ms. 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 In the ED: Vital signs showed T 97.0, HR 35-74, RR 18-20, BP 90/56 increased to 111/55 after fluids, O2 saturation 88-97% on 2-3 L NC. Labs were significant for: WBC 14.2 without bands, 77.7% granulocytes, H&H 14/ 43.5, Plt 216, Na 135, K 4.3, Cl 95, HCO3 29, BUN/cre 35/1, Glu 195, lactic acid 3.8, magnesium 3.6, TBili 1.1, AST 463, ALT 163, alk phos 281, troponon 0.04, normal lipid panel, lipase >10,000 and INR 1.31. EKG showed atrial flutter, bradycardia to 39 bpm and IVCD with WTC 355. CXR showed no acute pathology, no overt pulmonary edema. Abdominal/pelvis CT showed peripancratic fluid with inflammatory changes (no fluid collections seen). Multiple gallstones within the gallbladder lumen. Patient is currently admitted to the ICU and the following is the management: 1. Acute pancreatitis * Likely gallstone pancreatitis (elevated aminotransferases, ductal dilatation, high alk phos) * [place] 2 score = 10 * Admit to the ICU, close clinical monitoring * NPO, IVF hydration with LR at 150 cc/h x 1 bag then will reassess respiratory status to determine maitenance fluid rate * Pain control with IV morphine * GI consult placed in the ED, follow up recommendations * Trend ICU bundle, closely monitor electrolytes and renal function; trend lactic acid * Lipid panel within normal limits (no hypertriglyceridemia) * RUQ US for now to evaluate RUQ * Will discuss with family in AM about if back hardware is MRI compatible; if so , will obtain MRCP * Due to concern for cholangitis, will continue empiric IV unasyn * IV PPI * Repeat LFTs, alk phos in AM * Discussed case with Dr. Raz MD who suggests we may hold xarelto in the setting of possible impending surgical intervention and tomorrow may initiate IV heparin drip tomorrow when xarelto would be scheduled. * Cardiology also suggests no role from vitamin K unless vitamin K deficiency suspected. * Strict Is/Os, daily weights 2. Bradycardia in the setting of atrial fibrillation * Continuous telemetry monitoring (note patient has likely underlying conduction disease as IVCD appreciated) * Dr. Raz MD consulted in the ED, follow up recommendations * Pacer pads for bradycardia * Rule out ACS, first troponin/EKG negative, next trop/EKG at 630 PM, 12 AM * Atropine 1 mg PRN bradycardia (1 mg given already in the ED) * Hold magnesium as excess magnesium may contribute to bradycardia * Patient received her xarelto today; cardio suggests it is okay to continue to hold and initiate heparin drip tomorrow * F/U Lyme titer, TFTs 3. Transaminitis * Likely secondary to choledocholithiasis * Noted ductal dilatation on CT abdomen/pelvis * GI recommendations appreciated * Patient pending possible endoscopic or surgical intervention, patient NPO * Follow up RUQ US * IV PPI * Trend LFTs, alk phos * Hold statins, neprhotoxins 4. History of HTN, HLD * Monitor vital signs Q shift * Hold antihypertensives in the setting of borderline low BP * Hold statin 2/2 transaminitis 5. DM2 * As patient is NPO, use regular insulin Q6 * Accuchecks Q6 * IV hydration with LR per GI recommendations 6. Hypothyroidism * Follow up thyroid function tests * Restart thyroid supplementation IV if TFTs appropriate DNR/DNI Diet: NPO DVTP: ALPS Pain: Severe pain pathway
[2016-11-24 08:00] VITALS: BP 130/70
--- NOTE | 2016-11-24 09:08 | Cons- CRCU ---
CHU AGUILAR MD 11/24/16 0907: General Information and HPI Consulting Request Date of Consult: 11/24/16 Requested By: Dr. Genaro MD Source of Information: patient, family, old records Exam Limitations: no limitations History of Present Illness: Ms. Perez is a pleasant 86 year old female with PMH type 2 diabetes mellitus, HTN, HLD, congestive heart failure with reduced ejection fraction (35- 40%), CAD, VA s/p CABG, atrial fibrillation on xarelto, GERD, GIB and gout who presents with chief complaint of severe abdominal pain. Patient's daughter is also at bedside who helps provide more information during the history and physical. According to Pascale, she was in her normal state of health until this morning when around 10:15 AM she had sudden onset of acute, 10/10, stabbing epigastric pain. She had just got out of the bath when this occured and had breakfast (toast and one boiled egg) a few hours prior. This pain did not radiate and she had never experienced this before. It was associated with the subjective feeling of warmth, nausea and dry heaves. Of note, there is no recent outdoor activity and no recent history of tick bite; her history is also negative for recent sick contacts/exposure. Pascale denied chills, dizziness, chest pain, palpitations, shortness of breath, wheezing, vomiting, dysuria or constipation. Past surgical history is significant for fundoplication and CABG x 4. Social history is significant for 1 pack per week for years, though she quit when she was in her 40s. She denies alcohol or illicit drug use. She lives at home with her daughter and completed all of her ADLs/IADLs independantly. She does however use a walker when ambulating. Pascale follows with Dr. Miladis MD as her charting clerk and her daughter reports it was previously suggested that Pascale should have a PPM (which she has, to present, refused). Interval development 11/24/16: Patient seen and examined at bedside this AM. She reports the pain in her abdomen has shifted to the left side. She reports hunger and is asking for food; she was told she needs to remain NPO for pancreatitis as well as for possible GI intervention. Patient is asked regarding if her spinal hardware is MRI compatible and she is unsure. She had the procedure at [facility] with Dr. Jose Enrique MD. Daughter was contacted this AM and is also unsure whether or not the spine hardware is MRI compatible. MRI was called and reported hardware is likely MRI compatible and we should order MRCP. 24 Hour Events: wallpaper consultant: Atrial flutter with noted bradycardia to 44 bpm but HR has been adequate through the early AM hours and is now 60s-70s. Vital signs last 24 hours: T 97.2-99.8, HR 53-72, RR 20-34, O2 93-100% on 3 L NC. Total intake las 24 hours: 1456 cc Total output last 24 hours: 595 cc Allergies/Medications Allergies: Coded Allergies: sulfamethoxazole (From BACTRIM) (RASH 10/01/15) thiopental (PER PT ONLY CAN HAVE A TEST DOSE 03/18/16) trimethoprim (From BACTRIM) (RASH 10/01/15) Home Med List: Allopurinol 300 MG TABLET 1 TAB PO DAILY KIDNEY HEALTH (Reported) Benazepril HCl 20 MG TABLET 1 TAB PO DAILY HIGH BLOOD PRESSURE (Reported) Calcium Carbonate/Vitamin D3 (Caltrate 600 + D Tablet) 600 MG-800 TABLET 1 TAB PO DAILY HEALTH SUPPLEMENT (Reported) Carboxymethylcellulose Sodium (Refresh Tears) 15 ML DROPS 1 DROP OP TID- 4XDAILY LUBRICANT- BOTH EYES (Reported) Cephalexin 250 MG CAPSULE 1 CAP PO EOD PROPHYLAXIS (Reported) Cholecalciferol (Vitamin D3) (Vitamin D-3) 2,000 UNIT CAPSULE 1 CAP PO D HEALTH SUPPLEMENT (Reported) Chromium Picolinate 1,000 MCG TABLET 0.5 TAB PO D HEALTH SUPPLEMENT (Reported ) Cranberry Extract (Cranberry) (Unknown Strength) CAPSULE (Unknown Dose) PO DAILY SUPPLEMENT (Reported) Diclofenac Sodium (Voltaren) 100 GM GEL..GRAM. 1 GM TOP EOD KNEES (Reported) apply to affected area(s) Estradiol (Estrace) (Unknown Strength) CREAM.APPL 1 TERESA VG QHS HRT (Reported) Folic Acid/Multivit-Min/Lutein (Centrum Silver Chewable Tablet) 400 MCG-250 MCG TAB.CHEW 1 TAB PO D HEALTH SUPPLEMENT (Reported) Furosemide 40 MG TABLET 1 TAB PO QAM HEART HEALTH (Reported) Gabapentin (Neurontin) 100 MG CAPSULE 1 CAP PO TID NERVE PAIN (Reported) Isosorbide Mononitrate (Isosorbide Mononitrate ER) 60 MG TAB.ER.24H 1 TAB PO DAILY HIGH BLOOD PRESSURE (Reported) Lactobacillus Acidophilus (Acidophilus) 1 EACH CAPSULE 1 CAP PO DAILY HEALTH SUPPLEMENT (Reported) Levomefolate/B6/B12/Algal Oil (Metanx Capsule) 1 EACH CAPSULE 1 CAP PO BID SUPPLEMENT (Reported) Levothyroxine Sodium (Synthroid) 88 MCG TABLET 1 TAB PO DAILY THYROID HEALTH (Reported) Lorazepam (Ativan) 0.5 MG TABLET 1 TAB PO QHS SLEEP HELP (Reported) Lysine (L-Lysine) 500 MG TABLET 1 TAB PO D HEALTH SUPPLEMENT (Reported) Magnesium Oxide (Magnesium) 400 MG CAPSULE 1 CAP PO DAILY HEALTH SUPPLEMENT ( Reported) Meloxicam (Mobic) 15 MG TABLET 1 TAB PO DAILY PRN PAIN Metformin HCl 1,000 MG TABLET 1 TAB PO BID DIABETES (Reported) [place]-3S/Dha/Epa/Fish Oil (Fish Oil 1,200 MG Softgel) 360-1,200MG CAPSULE 1 CAP PO D HEALTH SUPPLEMENT (Reported) Omeprazole 20 MG CAPSULE.DR 1 CAP PO DAILY ACID REFLUX (Reported) Rivaroxaban (Xarelto) 20 MG TABLET 1 TAB PO QPM BLOOD THINNER (Reported) with food Simvastatin (Simvastatin*) 40 MG TABLET 1 TAB PO QPM HIGH CHOLESTROL ( Reported) Sitagliptin Phosphate (Januvia) 100 MG TABLET 1 TAB PO QAM DIABETES (Reported ) Ubidecarenone (Co Q-10) (Unknown Strength) CAPSULE (Unknown Dose) PO DAILY SUPPLEMENT (Reported) Vit C/E/Zn/Coppr/Lutein/Zeaxan (Preservision Areds 2 Softgel) 1 EACH CAPSULE 1 CAP PO BID SUPPLEMENT (Reported) Current Medications: Current Medications Sig/Chinyere Start time Last Medication Dose Route Stop Time Status Admin Acetaminophen 0 .STK-MED ONE 11/23 1246 DC IV Acetaminophen 1,000 MG ONCE ONE 11/23 1230 DC 06/ IV 11/23 1231 1256 Ampicillin Sodium/ 3,000 MG Q6H 11/23 2200 AC 11/24 Sulbactam Sodium IV 0500 Sodium Chloride 100 ML Ampicillin Sodium/ 0 .STK-MED ONE 11/23 1624 DC Sulbactam Sodium .ROUTE Ampicillin Sodium/ 3,000 MG ONCE ONE 11/23 1600 DC 11/23 Sulbactam Sodium IV 11/23 1629 1600 Sodium Chloride 100 ML Atropine Sulfate 1 MG ONE PRN 06/ 1700 AC IV Atropine Sulfate 0 .STK-MED ONE 11/23 1346 DC .ROUTE Atropine Sulfate 1 MG ONCE ONE 11/23 1345 DC / IV PUSH 11/23 1346 1354 Famotidine 0 .STK-MED ONE 11/23 1247 DC IV Famotidine 20 MG ONCE ONE 11/23 1245 DC / IV 11/23 1246 1256 Heparin Sodium 25,000 UNIT Q24H 11/24 0730 AC 11/24 (Porcine) IV 0843 Sodium Chloride 500 ML Insulin Human Regular 0 Q6 / 1800 AC 11/24 SC 0529 Lactated Ringer's 1,000 ML Q13H 11/24 0030 AC 11/24 IV 0103 Lactated Ringer's 1,000 ML Q6H 11/23 1800 DC 11/23 IV 11/23 2359 1828 Metoclopramide HCl 0 .STK-MED ONE 11/23 1247 DC .ROUTE Metoclopramide HCl 10 MG ONCE ONE 11/23 1245 DC 11/23 IV 11/23 1246 1256 Morphine Sulfate 1 MG Q4P PRN 11/23 1700 AC 06/ IV 2207 Morphine Sulfate 2 MG ONCE ONE 11/23 1345 DC / IV 11/23 1346 1345 Morphine Sulfate 0 .STK-MED ONE 11/23 1340 DC .ROUTE Ondansetron HCl 4 MG Q6P PRN 11/23 1815 DC IV Ondansetron HCl 0 .STK-MED ONE 11/23 1338 DC .ROUTE Ondansetron HCl 4 MG ONCE ONE 11/23 1330 DC / IV 11/23 1331 1344 Ondansetron HCl 4 MG ONCE ONE 11/23 1230 CAN IV / 1231 Pantoprazole Sodium 40 MG DAILY 11/24 1000 AC IV Pantoprazole Sodium 40 MG DAILY 11/23 1816 DC / IV 2025 Prochlorperazine 5 MG Q4P PRN 11/23 1915 AC IV Sodium Chloride 1,000 ML Q10H /04 1715 DC 06/ IV 06/05 1314 1720 Sodium Chloride 1,000 ML BOLUS ONE 11/23 1400 DC / IV 04 1459 1357 Sodium Chloride 500 ML BOLUS ONE 11/23 1245 DC 11/23 IV 11/23 1344 1256 Review of Systems Review of Systems Constitutional: Denies: chills, fever, malaise. EENTM: Denies: blurred vision, visual changes, hearing changes. Cardiovascular: Denies: chest pain, palpitations, syncope. Respiratory: Denies: cough, short of breath. GI: Reports: abdominal pain. Denies: constipation, nausea, changes in stool, vomiting. Genitourinary: Denies: dysuria, hematuria, hesitation. Musculoskeletal: Reports: joint pain (Chronic bilateral leg pain). Skin: Denies: lesions, rash. Neurological/Psychological: Denies: confusion, headache. Hematologic/Endocrine: Denies: bruising, bleeding. Immunologic/Allergic: Denies: splenectomy. All Other Systems: Reviewed and Negative Past History Travel [facility] past [facility] day No Medical History Blood Transfusion Hx: Yes Neurological: NEROPATHY EENT: cataracts, DRY EYES Cardiovascular: AFIB, aflutter, CHF, hypertension, hyperlipidemia, myocardial infarction, CARDIAC ARREST Respiratory: NONE Gastrointestinal: GERD, GI BLEED Hepatic: NONE Renal: nephrolithiasis, UTI Musculoskeletal: gout Psychiatric: NONE Endocrine: diabetes, hypothyroidism Blood Disorders: NONE Cancer(s): NONE BETTING CLERKS/Reproductive: ENDOMETRIAL HYPERPLASIA Surgical History Surgical History: CABG Psychosocial History Where Do You Live? Home Who Do You Live With? child Services at Home: None Primary Language: Montserratian Smoking Status: Former Smoker ETOH Use: denies use Illicit Drug Use: denies illicit drug use Living Will? yes Functional Ability ADLs Independent: dressing, eating, toileting, bathing. Ambulation: walker IADLs Independent: shopping, housework, finances, food prep, telephone, transportation , medication admin. Employment History Employment: Retired Profession/Employer: [employer] Exam & Diagnostic Data Last 24 Hrs of Vital Signs/I&O Vital Signs Date Time Temp Pulse Resp B/P B/P Pulse O2 O2 Flow FiO2 Mean Ox Delivery Rate 11/24 0400 07 Nasal 3.0L Cannula 11/24 0000 95 Nasal 3.0L Cannula 11/24 0000 98.0 62 20 140/60 95 Nasal 3.0L Cannula 11/23 1906 95 Nasal 3.0L Cannula 11/23 1745 50 18 102/38 92 Nasal 5.0L Cannula 11/23 1647 97.0 11/23 1641 42 18 108/40 93 Nasal 3.0L Cannula 11/23 1600 93 Nasal 3.0L Cannula 11/23 1530 42 20 106/36 92 Nasal 3.0L Cannula 11/23 1415 61 20 111/55 94 Nasal 3.0L Cannula 11/23 1340 35 20 129/55 97 Nasal 3.0L Cannula 11/23 1301 42 20 98/50 94 Nasal 2.0L Cannula 11/23 1259 88 Room Air 11/23 1200 97.0 74 18 90/56 94 Room Air Intake & Output 11/24 1600 0605 0800 06/ 0000 Intake Total 704 752 Output Total 265 330 Balance 439 422 Intake, IV 704 752 Output, Urine 265 330 Patient 150 lb Weight Weight Bed scale Measurement Method Physical Exam General Appearance: well developed/nourished, no apparent distress, alert, awake , comfortable Head: atraumatic, normal appearance Eyes: Bilateral: PERRL, EOMI. Ears, Nose, Throat: normal pharynx, normal ENT inspection, hearing grossly normal, moist mucus membranes Neck: normal inspection, supple, full range of motion Respiratory: normal breath sounds, chest non-tender Cardiovascular: regular rate/rhythm, normal peripheral pulses Gastrointestinal: Normal bowel sounds, tenderness to palpation RUQ, epigastric region, LUQ and LLQ Rectal: deferred Extremities: normal inspection, no edema Neurologic/Psych: no motor/sensory deficits, awake, alert, oriented x 3, normal mood/affect Cranial Nerves: normal hearing, normal speech, PERRL Skin: normal color, warm/dry Last 48 Hrs of Labs/Mejia: Laboratory Tests 11/24/16 0545: Lactic Acid 1.9 11/24/16 0500: Ur Random Creatinine 92.1, Ur Random Sodium < 5 L, Ur Random Potassium 42.7, Fraction Sodium Excret 11/24/16 0440: Anion Gap 8, Estimated GFR 47 L, Glucose 122 H, Calcium 7.7 L, Phosphorus 4.2 , Magnesium 3.9 H, Total Bilirubin 2.1 H, AST 1878 H, ALT 933 H, Albumin 3.2 L, PT 11.5, INR 1.10, CBC w Diff MAN DIFF ORDERED, RBC 3.93 L, MCV 99.6 H, MCH 32.2 H, RDW 15.9 H, MPV 10.2, Gran % 89.9 H, Lymphocytes % 5.0 L, Monocytes % 5.1, Eosinophils % 0, Basophils % 0 L, Absolute Granulocytes 16.3 H, Segmented Neutrophils 84 H, Band Neutrophils 7 H, Absolute Lymphocytes 0.9 L, Lymphocytes 6 L, Monocytes 3, Absolute Monocytes 0.9 H, Absolute Eosinophils 0, Absolute Basophils 0, Platelet Estimate ADEQUATE, PUBS MCHC 32.3 L 11/24/16 0045: Lactic Acid 2.6 H 11/24/16 0045: Anion Gap 9, Estimated GFR 47 L, Glucose 161 H, Calcium 7.8 L, Phosphorus 4.1 , Magnesium 3.8 H, Total Bilirubin 1.9 H, Direct Bilirubin 1.4 H, AST 2398 H , ALT 1240 H, Troponin I 0.09, Albumin 3.3 L, Amylase 1618 H, CBC w Diff MAN DIFF ORDERED, RBC 3.81 L, MCV 98.0, MCH 31.8 H, RDW 15.4 H, MPV 9.5, Gran % 91.3 H, Lymphocytes % 4.1 L, Monocytes % 4.6, Eosinophils % 0, Basophils % 0 L, Absolute Granulocytes 15.8 H, Segmented Neutrophils 85 H, Band Neutrophils 7 H, Absolute Lymphocytes 0.7 L, Lymphocytes 3 L, Monocytes 5, Absolute Monocytes 0.8 H, Absolute Eosinophils 0, Absolute Basophils 0, Platelet Estimate ADEQUATE, Anisocytosis 1+, Macrocytic Cells FEW, PUBS MCHC 32.4 L 11/24/16 0030: Troponin I Cancelled 11/23/16 2200: Sodium Cancelled, Potassium Cancelled, Chloride Cancelled, Carbon Dioxide Cancelled, Anion Gap Cancelled, BUN Cancelled, Creatinine Cancelled, Glucose Cancelled, Calcium Cancelled, Phosphorus Cancelled, Magnesium Cancelled, Total Bilirubin Cancelled, AST Cancelled, ALT Cancelled, Alkaline Phosphatase Cancelled, Albumin Cancelled 11/23/161999: Urinalysis LIGHT H, Urine Color YEL, Urine Clarity CLEAR, Urine pH 7.0, Ur Specific [place] 1.010, Urine Protein 30 H, Urine Ketones NEG, Urine Nitrite NEG, Urine Bilirubin NEG, Urine Urobilinogen 0.2, Ur Leukocyte Esterase NEG, Ur Microscopic SEDIMENT EXAMINED, Urine RBC 1-3, Ur Epithelial Cells FEW, Hyaline Casts RARE H, Urine Hemoglobin NEG, Urine Glucose NEG 11/23/16 1950: Lactic Acid 2.3 H 11/23/16 1950: Anion Gap 9, Estimated GFR 47 L, Glucose 130 H, Calcium 7.9 L, Phosphorus 4.2 , Magnesium 3.6 H, Total Bilirubin 1.9 H, AST 3093 H, ALT 1310 H, Alkaline Phosphatase 284 H, Troponin I 0.09, Albumin 3.3 L 11/23/16 1657: TSH Cancelled 11/23/16 1614: Lactic Acid 3.1 H 11/23/16 1237: Anion Gap 11, Estimated GFR 53 L, BUN/Creatinine Ratio 35.0 H, Glucose 195 H, Lactic Acid 3.8 H, Calcium 8.7, Magnesium 3.6 H, Total Bilirubin 1.1, AST 463 H, ALT 163 H, Alkaline Phosphatase 281 H, Troponin I 0.04, Gee-B-Mmjsbvkusah Pept 2160 H, Total Protein 6.7, Albumin 4.0, Globulin 2.7, Albumin/Globulin Ratio 1.5, Triglycerides 143, Cholesterol 143, LDL Cholesterol, Calc 16 L, HDL Cholesterol 99 H, Cholesterol/HDL Ratio 1, Lipase > 89028 H, TSH 5.000 H, Thyroxine (T4) 12.3 H, PT 13.7 H, INR 1.31 H, CBC w Diff NO MAN DIFF REQ, RBC 4.37, MCV 99.6 H, MCH 32.1 H, RDW 16.0 H, MPV 10.0, Gran % 77.7 H, Lymphocytes % 15.4 L, Monocytes % 5.3, Eosinophils % 1.4, Basophils % 0.2, Absolute Granulocytes 11.0 H, Absolute Lymphocytes 2.2, Absolute Monocytes 0.8 H, Absolute Eosinophils 0.2, Absolute Basophils 0, PUBS MCHC 32.2 L, Lyme Disease Antibody Pending Diagnostic Data EKG Results Atrial flutter, bradycardic with HR 39 bpm, IVCD, QTC 555. CXR Results IMPRESSION: No convincing acute pulmonary pathology. No evidence of overt pulmonary edema. Other Results Abdominal/pelvis CT: Abdominal/Pelvis CT: IMPRESSION: 1. A moderate amount of peripancreatic fluid in conjunction with peripancreatic inflammatory changes, indicative of acute pancreatitis. No rim-enhancing, organizing peripancreatic fluid collections are identified. 2. Multiple small layering gallstones within the gallbladder lumen. No intrahepatic biliary ductal dilatation. The distal common bile duct is mildly prominent and is visualized measuring up to 1 cm in diameter. There are no visible intraductal radiopaque stones. There is a minimal amount of pericholecystic fluid. Consider correlation with right upper quadrant abdominal ultrasound, which is more sensitive in evaluating the gallbladder. 3. Liquid stool within the right hemicolon as well as the transverse colon. This finding is nonspecific but can be seen in the setting of diarrhea. There are no CT findings indicative of mesenteric ischemia. Nevertheless, correlation with pancreatic enzyme levels is recommended. Assessment/Plan Impression/Plan: Ms. Perez is a pleasant 86 year old female with PMH type 2 diabetes mellitus, HTN, HLD, congestive heart failure with reduced ejection fraction (35- 40%), CAD, VA s/p CABG, atrial fibrillation on xarelto, GERD, GI bleed and gout who presented to [place] due to sudden-onset, 03/31, stabbing epigastric pain. In the ED: Vital signs showed T 97.0, HR 35-74, RR 18-20, BP 90/56 increased to 111/55 after fluids, O2 saturation 88-97% on 2-3 L NC. Labs were significant for: WBC 14.2 without bands, 77.7% granulocytes, H&H 14/ 43.5, Plt 216, Na 135, K 4.3, Cl 95, HCO3 29, BUN/cre 35/1, Glu 195, lactic acid 3.8, magnesium 3.6, TBili 1.1, AST 463, ALT 163, alk phos 281, troponon 0.04, normal lipid panel, lipase >10,000 and INR 1.31. EKG showed atrial flutter, bradycardia to 39 bpm and IVCD with WTC 355. CXR showed no acute pathology, no overt pulmonary edema. Abdominal/pelvis CT showed peripancratic fluid with inflammatory changes (no fluid collections seen). Multiple gallstones within the gallbladder lumen. Patient is currently admitted to the ICU and the following is the management: 1. Acute pancreatitis * Likely gallstone pancreatitis (elevated aminotransferases, ductal dilatation, high alk phos) * [place] 2 score = 10 * RUQ US performed and showed cholelithiasis with diffuse mural thickening otherwise no signs of acute cholecystitis * NPO, IVF hydration with D5NS at 50 cc/h, pain control with IV morphine (severe pain) * GI consult appreciated, will obtain MRCP later today * Trend ICU bundle, closely monitor electrolytes and renal function * Lipid panel within normal limits (no hypertriglyceridemia) * Continue empiric IV unasyn * IV PPI * Repeat LFTs this AM improving (trending down though they remain elevated) * Discussed case with Dr. Raz MD who suggests we may hold xarelto in the setting of possible impending surgical intervention and start IV heparin drip this AM. * Cardiology also suggests no role from vitamin K unless vitamin K deficiency suspected. * Strict Is/Os, daily weights 2. Atrial fibrillation with slow ventricular response * Bradycardia not hemodynamically significant at this time * Continuous telemetry monitoring (note patient has likely underlying conduction disease) * Patient has previously requested no PPM be placed, no indication for emergent pacer at this time * Dr. Raz MD consultation appreciated, continue to follow up recommendations * ACS ruled out with troponin/EKG negative x 3 * Atropine 1 mg PRN bradycardia (1 mg given already in the ED) * Hold magnesium as excess magnesium may contribute to bradycardia * Continue heparin drip while surgical intervention may be required; hold xarelto * Lyme titer negative 3. Transaminitis * Likely secondary to choledocholithiasis * Noted ductal dilatation on CT abdomen/pelvis * GI recommendations appreciated * Patient pending possible endoscopic or surgical intervention, patient NPO * IV PPI * Trend LFTs, alk phos * Hold statins, neprhotoxins 4. History of HTN, HLD * Monitor vital signs Q shift * Hold antihypertensives in the setting of borderline low BP * Hold statin 2/2 transaminitis 5. DM2 * As patient is NPO, use regular insulin Q6 * Accuchecks Q6 * IV hydration per GI recommendations 6. Hypothyroidism * TSH high, FT4 high, possibly thyroiditis in acute illness? * Repeat TFTs tomorrow and restart thyroid supplementation DNR/DNI Diet: NPO DVTP: ALPS Pain: Severe pain pathway Consult Acknowledgment - Thank you for your consult request. EMERSON RADFORD MD 11/24/16 0928: General Information and HPI Consulting Request Reason for Consult: bradycardia, sepsis Assessment/Plan Other Findings/Comments: Emerson Gonzalez M.D. have examined this patient, reviewed available EMR data, personally reviewed images, discussed with resident/PA/AIRPLANE INSPECTOR, discussed management plan with housestaff and nursing staff, discussed managment plan all of healthcare providers, discussed management plan with patient and/or family, agreed with resident/PA/AIRPLANE INSPECTOR. The past history and parts of the chart have been autopopulated. TTS 50 min Consult Acknowledgment - Thank you for your consult request. - Thank you for your consult request.
--- NOTE | 2016-11-24 10:57 | ULTRASOUND REPORT ---
EXAMINATION: RIGHT UPPER QUADRANT ABDOMINAL ULTRASOUND CLINICAL INFORMATION: Acute pancreatitis. COMPARISON: CT 11/23/2016. TECHNIQUE: Routine grayscale and color Doppler imaging is provided for interpretation. FINDINGS: The pancreas is not well visualized on this exam, better evaluated on the recent CT scan. Liver appears unremarkable. The gallbladder contains multiple small calculi and appears somewhat contracted with wall thickening measuring 6 mm in dimension. No pericholecystic fluid is seen. Patient denies tenderness upon deep palpation with the ultrasound probe over the gallbladder with the patient is on low-dose pain medication. The extrahepatic common duct is mildly dilated measuring up to 0.7 cm on this examination without evidence of choledocholithiasis although the entire common duct is not well visualized due to overlying bowel gas. The right kidney is normal in size and echotexture measuring 10.3 cm in maximal longitudinal dimension. There is no hydronephrosis or nephrolithiasis identified. There is no intraperitoneal free fluid identified. IMPRESSION: 1. Cholelithiasis with diffuse mural thickening, otherwise no evidence of acute cholecystitis. Clinical correlation recommended. 2. Common duct is upper limits of normal to mildly dilated without evidence of choledocholithiasis although the common duct and pancreas are not well visualized on this exam.
--- NOTE | 2016-11-24 11:36 | Cons- Cardiology ---
General Information and HPI Consulting Request Date of Consult: 11/24/16 Requested By: SHERICE GAGNON MD Reason for Consult: Atrial flutter, bradycardia, coronary artery disease Source of Information: patient, family, old records History of Present Illness: This is a very pleasant 86-year-old female with a past medical history of coronary artery disease, (bypass surgery in 1994 with a MARIN to the LAD, vein grafts to the diagonal, PDA and distal RCA), atrial flutter with slow ventricular response rate on anticoagulation, previous GI bleed/gastric ulcer without recurrence, gallstones, ischemic cardiomyopathy with recovery, CHF, diabetes, hypertension, and hyperlipidemia who presents to [facility] with a chief complaint of one day of sudden onset severe epigastric pain which was sharp in nature. She denied radiation of the pain and denied any associated dizziness, chest pain, dyspnea, or palpitations. Prior to this episode she was in her usual state of health with no exertional symptoms. Reports no recent episodes of syncope, focal weakness, slurring of speech, visual change, orthopnea, paroxysmal nocturnal dyspnea, or cough. She was noted to be bradycardic on presentation. She apparently the recently turned in an outpatient Holter but that report is not yet available. Pacemaker was apparently discussed with her in the past but she had declined this. Allergies/Medications Allergies: Coded Allergies: sulfamethoxazole (From BACTRIM) (RASH 10/01/15) thiopental (PER PT ONLY CAN HAVE A TEST DOSE 03/18/16) trimethoprim (From BACTRIM) (RASH 10/01/15) Home Med List: Allopurinol 300 MG TABLET 1 TAB PO DAILY KIDNEY HEALTH (Reported) Benazepril HCl 20 MG TABLET 1 TAB PO DAILY HIGH BLOOD PRESSURE (Reported) Calcium Carbonate/Vitamin D3 (Caltrate 600 + D Tablet) 600 MG-800 TABLET 1 TAB PO DAILY HEALTH SUPPLEMENT (Reported) Carboxymethylcellulose Sodium (Refresh Tears) 15 ML DROPS 1 DROP OP TID- 4XDAILY LUBRICANT- BOTH EYES (Reported) Cephalexin 250 MG CAPSULE 1 CAP PO EOD PROPHYLAXIS (Reported) Cholecalciferol (Vitamin D3) (Vitamin D-3) 2,000 UNIT CAPSULE 1 CAP PO D HEALTH SUPPLEMENT (Reported) Chromium Picolinate 1,000 MCG TABLET 0.5 TAB PO D HEALTH SUPPLEMENT (Reported ) Cranberry Extract (Cranberry) (Unknown Strength) CAPSULE (Unknown Dose) PO DAILY SUPPLEMENT (Reported) Diclofenac Sodium (Voltaren) 100 GM GEL..GRAM. 1 GM TOP EOD KNEES (Reported) apply to affected area(s) Estradiol (Estrace) (Unknown Strength) CREAM.APPL 1 TERESA VG QHS HRT (Reported) Folic Acid/Multivit-Min/Lutein (Centrum Silver Chewable Tablet) 400 MCG-250 MCG TAB.CHEW 1 TAB PO D HEALTH SUPPLEMENT (Reported) Furosemide 40 MG TABLET 1 TAB PO QAM HEART HEALTH (Reported) Gabapentin (Neurontin) 100 MG CAPSULE 1 CAP PO TID NERVE PAIN (Reported) Isosorbide Mononitrate (Isosorbide Mononitrate ER) 60 MG TAB.ER.24H 1 TAB PO DAILY HIGH BLOOD PRESSURE (Reported) Lactobacillus Acidophilus (Acidophilus) 1 EACH CAPSULE 1 CAP PO DAILY HEALTH SUPPLEMENT (Reported) Levomefolate/B6/B12/Algal Oil (Metanx Capsule) 1 EACH CAPSULE 1 CAP PO BID SUPPLEMENT (Reported) Levothyroxine Sodium (Synthroid) 88 MCG TABLET 1 TAB PO DAILY THYROID HEALTH (Reported) Lorazepam (Ativan) 0.5 MG TABLET 1 TAB PO QHS SLEEP HELP (Reported) Lysine (L-Lysine) 500 MG TABLET 1 TAB PO D HEALTH SUPPLEMENT (Reported) Magnesium Oxide (Magnesium) 400 MG CAPSULE 1 CAP PO DAILY HEALTH SUPPLEMENT ( Reported) Meloxicam (Mobic) 15 MG TABLET 1 TAB PO DAILY PRN PAIN Metformin HCl 1,000 MG TABLET 1 TAB PO BID DIABETES (Reported) [place]-3S/Dha/Epa/Fish Oil (Fish Oil 1,200 MG Softgel) 360-1,200MG CAPSULE 1 CAP PO D HEALTH SUPPLEMENT (Reported) Omeprazole 20 MG CAPSULE.DR 1 CAP PO DAILY ACID REFLUX (Reported) Rivaroxaban (Xarelto) 20 MG TABLET 1 TAB PO QPM BLOOD THINNER (Reported) with food Simvastatin (Simvastatin*) 40 MG TABLET 1 TAB PO QPM HIGH CHOLESTROL ( Reported) Sitagliptin Phosphate (Januvia) 100 MG TABLET 1 TAB PO QAM DIABETES (Reported ) Ubidecarenone (Co Q-10) (Unknown Strength) CAPSULE (Unknown Dose) PO DAILY SUPPLEMENT (Reported) Vit C/E/Zn/Coppr/Lutein/Zeaxan (Preservision Areds 2 Softgel) 1 EACH CAPSULE 1 CAP PO BID SUPPLEMENT (Reported) Current Medications: Current Medications Sig/Chinyere Start time Last Medication Dose Route Stop Time Status Admin Acetaminophen 0 .STK-MED ONE 11/23 1246 DC IV Acetaminophen 1,000 MG ONCE ONE 11/23 1230 DC 06/ IV 06 1231 1256 Ampicillin Sodium/ 3,000 MG Q6H / 2200 AC 06/ Sulbactam Sodium IV 1134 Sodium Chloride 100 ML Ampicillin Sodium/ 0 .STK-MED ONE 11/23 1624 DC Sulbactam Sodium .ROUTE Ampicillin Sodium/ 3,000 MG ONCE ONE 11/23 1600 DC 11/23 Sulbactam Sodium IV 11/23 1629 1600 Sodium Chloride 100 ML Atropine Sulfate 1 MG ONE PRN 11/23 1700 AC IV Atropine Sulfate 0 .STK-MED ONE 11/23 1346 DC .ROUTE Atropine Sulfate 1 MG ONCE ONE 11/23 1345 DC 06 IV PUSH 11/23 1346 1354 Dextrose/Sodium 1,000 ML Q20H / 1130 AC 06 Chloride IV 1140 Famotidine 0 .STK-MED ONE 11/23 1247 DC IV Famotidine 20 MG ONCE ONE 11/23 1245 DC 06/ IV / 1246 1256 Heparin Sodium 25,000 UNIT Q24H / 0730 AC 11/24 (Porcine) IV 0843 Sodium Chloride 500 ML Insulin Human Regular 0 Q6 / 1800 AC 11/24 SC 0529 Lactated Ringer's 1,000 ML Q13H / 0030 DC 06 IV 0103 Lactated Ringer's 1,000 ML Q6H / 1800 DC / IV 11/23 2359 1828 Metoclopramide HCl 0 .STK-MED ONE 11/23 1247 DC .ROUTE Metoclopramide HCl 10 MG ONCE ONE 11/23 1245 DC 06/ IV 06/04 1246 1256 Morphine Sulfate 1 MG Q4P PRN 11/23 1700 AC 06 IV 1119 Morphine Sulfate 2 MG ONCE ONE 11/23 1345 DC 06/ IV 11/23 1346 1345 Morphine Sulfate 0 .STK-MED ONE 11/23 1340 DC .ROUTE Ondansetron HCl 4 MG Q6P PRN 11/23 1815 DC IV Ondansetron HCl 0 .STK-MED ONE 11/23 1338 DC .ROUTE Ondansetron HCl 4 MG ONCE ONE 11/23 1330 DC / IV / 1331 1344 Ondansetron HCl 4 MG ONCE ONE 11/23 1230 CAN IV 11/23 1231 Pantoprazole Sodium 40 MG DAILY 11/24 1000 AC 11/24 IV 1135 Pantoprazole Sodium 40 MG DAILY 11/23 1816 DC / IV 2025 Prochlorperazine 5 MG Q4P PRN 11/23 1915 AC IV Sodium Chloride 1,000 ML Q10H 11/23 1715 DC 06/04 IV 05 1314 1720 Sodium Chloride 1,000 ML BOLUS ONE 11/23 1400 DC 06/04 IV /04 1459 1357 Sodium Chloride 500 ML BOLUS ONE 11/23 1245 DC 06/ IV / 1344 1256 Review of Systems Review of Systems: Review of systems as per HPI. The remainder of a 10 point review of systems was reviewed and was otherwise negative. 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 Home Who Do You Live With? child Services at Home: None Primary Language: German Smoking Status: Former Smoker ETOH Use: denies use Illicit Drug Use: denies illicit drug use Living Will? yes Functional Ability ADLs Independent: dressing, eating, toileting, bathing. Ambulation: walker IADLs Independent: shopping, housework, finances, food prep, telephone, transportation , medication admin. Employment History Employment: Retired Profession/Employer [facility] Exam & Diagnostic Data Vital Signs and I&O Vital Signs Date Time Temp Pulse Resp B/P B/P Pulse O2 O2 Flow FiO2 Mean Ox Delivery Rate 11/24 0400 07 Nasal 3.0L Cannula 11/24 0000 95 Nasal 3.0L Cannula 11/24 0000 98.0 62 20 140/60 95 Nasal 3.0L Cannula 11/23 1906 95 Nasal 3.0L Cannula 11/23 1745 50 18 102/38 92 Nasal 5.0L Cannula 11/23 1647 97.0 11/23 1641 42 18 108/40 93 Nasal 3.0L Cannula 11/23 1600 93 Nasal 3.0L Cannula 11/23 1530 42 20 106/36 92 Nasal 3.0L Cannula 11/23 1415 61 20 111/55 94 Nasal 3.0L Cannula 11/23 1340 35 20 129/55 97 Nasal 3.0L Cannula 11/23 1301 42 20 98/50 94 Nasal 2.0L Cannula 11/23 1259 88 Room Air 11/23 1200 97.0 74 18 90/56 94 Room Air Intake & Output 11/24 1600 11/24 0800 11/24 0000 11/23 1600 11/23 0800 11/23 0000 Intake Total 704 752 500 Output Total 265 330 Balance 439 422 500 Intake, IV 704 752 500 Output, Urine 265 330 Patient 150 lb 143 lb Weight Weight Bed scale Estimated Measurement Method Physical Exam: General: no apparent distress. Alert. Eyes: No obvious scleral icterus. HEENT: No jugular venous distention or abnormal jugular venous pulsations. Cardiovascular: Normal intensity S1/S2. Irregular bradycardia Respiratory: Lungs clear to auscultation bilaterally. Abdomen: Mildly tender without rebound Musculoskeletal: No clubbing or cyanosis noted, no edema Skin: Warm Neurologic: No gross focal deficits noted. Labs/Mejia Results: Laboratory Tests 11/24 11/24 11/24 11/24 0545 0500 0440 0045 Chemistry Sodium (137 - 145 mmol/L) 137 Potassium (3.5 - 5.1 mmol/L) 4.6 Chloride (98 - 107 mmol/L) 99 Carbon Dioxide (22 - 30 mmol/L) 30 Anion Gap (5 - 16) 8 BUN (7 - 17 mg/dL) 36 H Creatinine (0.5 - 1.0 mg/dL) 1.1 H Estimated GFR (>60 ml/min) 47 L Glucose (65 - 99 mg/dL) 122 H Lactic Acid (0.7 - 2.1 mmol/L) 1.9 2.6 H Calcium (8.4 - 10.2 mg/dL) 7.7 L Phosphorus (2.5 - 4.5 mg/dL) 4.2 Magnesium (1.6 - 2.3 mg/dL) 3.9 H Total Bilirubin (0.2 - 1.3 mg/dL) 2.1 H AST (14 - 36 U/L) 1878 H ALT (9 - 52 U/L) 933 H Albumin (3.5 - 5.0 g/dL) 3.2 L Coagulation PT (9.4 - 12.5 SEC) 11.5 INR (0.90 - 1.19) 1.10 Hematology CBC w Diff MAN DIFF ORDERED WBC (4.8 - 10.8 /CUMM) 18.1 H RBC (4.20 - 5.40 /CUMM) 3.93 L Hgb (12.0 - 16.0 G/DL) 12.6 Hct (37 - 47 %) 39.1 MCV (81.0 - 99.0 FL) 99.6 H MCH (27.0 - 31.0 PG) 32.2 H RDW (11.5 - 14.5 %) 15.9 H Plt Count (130 - 400 /CUMM) 195 MPV (7.4 - 10.4 FL) 10.2 Gran % (42.2 - 75.2 %) 89.9 H Lymphocytes % (20.5 - 51.1 %) 5.0 L Monocytes % (1.7 - 9.3 %) 5.1 Eosinophils % (0 - 5 %) 0 Basophils % (0.0 - 2.0 %) 0 L Absolute Granulocytes (1.4 - 6.5 /CUMM) 16.3 H Segmented Neutrophils (42.2 - 75.2 %) 84 H Band Neutrophils (0.0 - 5.0 %) 7 H Absolute Lymphocytes (1.2 - 3.4 /CUMM) 0.9 L Lymphocytes (20.5 - 51.1 %) 6 L Monocytes (1.7 - 9.3 %) 3 Absolute Monocytes (0.10 - 0.60 /CUMM) 0.9 H Absolute Eosinophils (0.0 - 0.7 /CUMM) 0 Absolute Basophils (0.0 - 0.2 /CUMM) 0 Platelet Estimate (ADEQUATE) ADEQUATE PUBS MCHC (33.0 - 37.0 G/DL) 32.3 L Urines Ur Random Creatinine (mg/dL) 92.1 Ur Random Sodium (30 - 90 mmol/L) < 5 L Ur Random Potassium (mmol/L) 42.7 Fraction Sodium Excret (<1% %) 11/24 11/24 0045 0030 Chemistry Sodium (137 - 145 mmol/L) 137 Potassium (3.5 - 5.1 mmol/L) 4.7 Chloride (98 - 107 mmol/L) 99 Carbon Dioxide (22 - 30 mmol/L) 29 Anion Gap (5 - 16) 9 BUN (7 - 17 mg/dL) 34 H Creatinine (0.5 - 1.0 mg/dL) 1.1 H Estimated GFR (>60 ml/min) 47 L Glucose (65 - 99 mg/dL) 161 H Calcium (8.4 - 10.2 mg/dL) 7.8 L Phosphorus (2.5 - 4.5 mg/dL) 4.1 Magnesium (1.6 - 2.3 mg/dL) 3.8 H Total Bilirubin (0.2 - 1.3 mg/dL) 1.9 H Direct Bilirubin (< 0.4 mg/dL) 1.4 H AST (14 - 36 U/L) 2398 H ALT (9 - 52 U/L) 1240 H Troponin I (< 0.11 ng/ml) 0.09 Cancelled Albumin (3.5 - 5.0 g/dL) 3.3 L Amylase (30 - 110 U/L) 1618 H Hematology CBC w Diff MAN DIFF ORDERED WBC (4.8 - 10.8 /CUMM) 17.3 H RBC (4.20 - 5.40 /CUMM) 3.81 L Hgb (12.0 - 16.0 G/DL) 12.1 Hct (37 - 47 %) 37.3 MCV (81.0 - 99.0 FL) 98.0 MCH (27.0 - 31.0 PG) 31.8 H RDW (11.5 - 14.5 %) 15.4 H Plt Count (130 - 400 /CUMM) 186 MPV (7.4 - 10.4 FL) 9.5 Gran % (42.2 - 75.2 %) 91.3 H Lymphocytes % (20.5 - 51.1 %) 4.1 L Monocytes % (1.7 - 9.3 %) 4.6 Eosinophils % (0 - 5 %) 0 Basophils % (0.0 - 2.0 %) 0 L Absolute Granulocytes (1.4 - 6.5 /CUMM) 15.8 H Segmented Neutrophils (42.2 - 75.2 %) 85 H Band Neutrophils (0.0 - 5.0 %) 7 H Absolute Lymphocytes (1.2 - 3.4 /CUMM) 0.7 L Lymphocytes (20.5 - 51.1 %) 3 L Monocytes (1.7 - 9.3 %) 5 Absolute Monocytes (0.10 - 0.60 /CUMM) 0.8 H Absolute Eosinophils (0.0 - 0.7 /CUMM) 0 Absolute Basophils (0.0 - 0.2 /CUMM) 0 Platelet Estimate (ADEQUATE) ADEQUATE Anisocytosis 1+ Macrocytic Cells FEW PUBS MCHC (33.0 - 37.0 G/DL) 32.4 L 11/23 11/23 11/23 2200 1999 1949 Chemistry Sodium Cancelled Potassium Cancelled Chloride Cancelled Carbon Dioxide Cancelled Anion Gap Cancelled BUN Cancelled Creatinine Cancelled Glucose Cancelled Lactic Acid (0.7 - 2.1 mmol/L) 2.3 H Calcium Cancelled Phosphorus Cancelled Magnesium Cancelled Total Bilirubin Cancelled AST Cancelled ALT Cancelled Alkaline Phosphatase Cancelled Albumin Cancelled Urines Urinalysis LIGHT H Urine Color (YEL,AMB,STR) YEL Urine Clarity (CLEAR) CLEAR Urine pH (5.0 - 8.0) 7.0 Ur Specific [place] (1.001 - 1.035) 1.010 Urine Protein (NEG,<30 MG/DL) 30 H Urine Ketones (NEG) NEG Urine Nitrite (NEG) NEG Urine Bilirubin (NEG) NEG Urine Urobilinogen (0.1 - 1.0 EU/dl) 0.2 Ur Leukocyte Esterase (NEG) NEG Ur Microscopic SEDIMENT EXAMINED Urine RBC (0 - 5 /HPF) 1-3 Ur Epithelial Cells (NONE,FEW) FEW Hyaline Casts (0/LPF) RARE H Urine Hemoglobin (NEG) NEG Urine Glucose (N MG/DL) NEG 11/23 11/23 11/23 1950 1657 1614 Chemistry Sodium (137 - 145 mmol/L) 135 L Potassium (3.5 - 5.1 mmol/L) 4.5 Chloride (98 - 107 mmol/L) 98 Carbon Dioxide (22 - 30 mmol/L) 28 Anion Gap (5 - 16) 9 BUN (7 - 17 mg/dL) 34 H Creatinine (0.5 - 1.0 mg/dL) 1.1 H Estimated GFR (>60 ml/min) 47 L Glucose (65 - 99 mg/dL) 130 H Lactic Acid (0.7 - 2.1 mmol/L) 3.1 H Calcium (8.4 - 10.2 mg/dL) 7.9 L Phosphorus (2.5 - 4.5 mg/dL) 4.2 Magnesium (1.6 - 2.3 mg/dL) 3.6 H Total Bilirubin (0.2 - 1.3 mg/dL) 1.9 H AST (14 - 36 U/L) 3093 H ALT (9 - 52 U/L) 1310 H Alkaline Phosphatase (<127 U/L) 284 H Troponin I (< 0.11 ng/ml) 0.09 Albumin (3.5 - 5.0 g/dL) 3.3 L TSH Cancelled 11/23 1237 Chemistry Sodium (137 - 145 mmol/L) 135 L Potassium (3.5 - 5.1 mmol/L) 4.3 Chloride (98 - 107 mmol/L) 95 L Carbon Dioxide (22 - 30 mmol/L) 29 Anion Gap (5 - 16) 11 BUN (7 - 17 mg/dL) 35 H Creatinine (0.5 - 1.0 mg/dL) 1.0 Estimated GFR (>60 ml/min) 53 L BUN/Creatinine Ratio (7 - 25 %) 35.0 H Glucose (65 - 99 mg/dL) 195 H Lactic Acid (0.7 - 2.1 mmol/L) 3.8 H Calcium (8.4 - 10.2 mg/dL) 8.7 Magnesium (1.6 - 2.3 mg/dL) 3.6 H Total Bilirubin (0.2 - 1.3 mg/dL) 1.1 AST (14 - 36 U/L) 463 H ALT (9 - 52 U/L) 163 H Alkaline Phosphatase (<127 U/L) 281 H Troponin I (< 0.11 ng/ml) 0.04 [id number] Pept (<125 pg/mL) 2160 H Total Protein (6.3 - 8.2 g/dL) 6.7 Albumin (3.5 - 5.0 g/dL) 4.0 Globulin (1.9 - 4.2 gm/dL) 2.7 Albumin/Globulin Ratio (1.1 - 2.2 %) 1.5 Triglycerides (<150 mg/dL) 143 Cholesterol (<200 MG/DL) 143 LDL Cholesterol, Calc (65 - 129 mg/dL) 16 L HDL Cholesterol (40 - 60 mg/dL) 99 H Cholesterol/HDL Ratio (0.00 - 4.23 %) 1 Lipase (23 - 300 U/L) > 60226 H TSH (0.270 - 4.200 uIU/mL) 5.000 H Thyroxine (T4) (4.5 - 10.9 ug/dL) 12.3 H Coagulation PT (9.4 - 12.5 SEC) 13.7 H INR (0.90 - 1.19) 1.31 H Hematology CBC w Diff NO MAN DIFF REQ WBC (4.8 - 10.8 /CUMM) 14.2 H RBC (4.20 - 5.40 /CUMM) 4.37 Hgb (12.0 - 16.0 G/DL) 14.0 Hct (37 - 47 %) 43.5 MCV (81.0 - 99.0 FL) 99.6 H MCH (27.0 - 31.0 PG) 32.1 H RDW (11.5 - 14.5 %) 16.0 H Plt Count (130 - 400 /CUMM) 216 MPV (7.4 - 10.4 FL) 10.0 Gran % (42.2 - 75.2 %) 77.7 H Lymphocytes % (20.5 - 51.1 %) 15.4 L Monocytes % (1.7 - 9.3 %) 5.3 Eosinophils % (0 - 5 %) 1.4 Basophils % (0.0 - 2.0 %) 0.2 Absolute Granulocytes (1.4 - 6.5 /CUMM) 11.0 H Absolute Lymphocytes (1.2 - 3.4 /CUMM) 2.2 Absolute Monocytes (0.10 - 0.60 /CUMM) 0.8 H Absolute Eosinophils (0.0 - 0.7 /CUMM) 0.2 Absolute Basophils (0.0 - 0.2 /CUMM) 0 PUBS MCHC (33.0 - 37.0 G/DL) 32.2 L Serology Lyme Disease Antibody (RATIO) 0.15 Diagnostic Data EKG Results Tracing was personally reviewed and shows atrial flutter with slow ventricular response rate of 50 bpm with intraventricular conduction delay CXR Results No convincing acute pulmonary pathology. No evidence of overt pulmonary edema. Other Results Abdominal ultrasound 1. Cholelithiasis with diffuse mural thickening, otherwise no evidence of acute cholecystitis. Clinical correlation recommended. 2. Common duct is upper limits of normal to mildly dilated without evidence of choledocholithiasis although the common duct and pancreas are not well visualized on this exam. Telemetry tracings were personally reviewed and show atrial flutter with a ventricular response rate between 55 and 80 bpm Echocardiogram from 01/2016 showed ejection fraction 50-55% with mild septal hypokinesis Assessment/Plan Assessment/Plan 1. Acute gallstone pancreatitis 2. History of coronary artery disease, (bypass surgery in 1994 with a MARIN to the LAD, vein grafts to the diagonal, PDA and distal RCA) 3. Known atrial flutter with slow ventricular response rate, on Xarelto 4. Ischemic cardiomyopathy with recovery, chronic CHF 5. Diabetes/hypertension/hyperlipidemia The patient presents with evidence of possible acute gallstone pancreatitis. She has known conduction disease with known atrial flutter with chronic slow ventricular response rate. Blood pressure is stable and the bradycardia does not appear to be hemodynamically significant at this time. She is not on AV juju blockers which remain contraindicated at this time. No indication for emergency pacemaker and she has been reluctant to consider permanent pacemaker in the past. She has no current evidence of acute coronary syndrome or decompensated congestive heart failure. While her cardiac status appears currently stable she does represent moderate cardiac risk for invasive procedures given her age and history. An echocardiogram has been ordered and I'll follow-up those results. She should be maintained on continuous telemetry. Continue to monitor her fluid status closely. Her anticoagulation is being held for possible intervention and we have placed her on heparin drip with plan to hold as needed for invasive procedures. Tye Crandall MD [facility] Consult Acknowledgment - Thank you for your consult request.
[2016-11-24 16:13] VITALS: BP 164/80
[2016-11-24 16:40] LABS: PTT > 120 SEC (25-37)
--- NOTE | 2016-11-24 17:59 | MRI REPORT ---
EXAMINATION: MR ABDOMEN WITHOUT CONTRAST CLINICAL INFORMATION: Cholangitis, pancreatitis, evaluate for choledocholithiasis. COMPARISON: CT 11/23/2016, right upper quadrant ultrasound performed earlier the same day. TECHNIQUE: MR abdomen including MRCP imaging on 1.5 Brigette magnet without contrast was obtained using routine sequences. Exam is of limited diagnostic quality due to respiratory motion artifact on multiple sequences. FINDINGS: The gallbladder is physiologically distended. Small calculi and/or debris is identified layering in the gallbladder. There is no evidence of mural thickening or pericholecystic inflammatory changes identified to suggest acute cholecystitis. The common bile duct is dilated up to 10 mm which appears to taper to a more normal caliber at the sphincter without evidence of filling defects identified to suggest choledocholithiasis. Inflammatory changes are again noted in the pancreas and peripancreatic soft tissues suggesting acute pancreatitis extending along the fascial planes. A small amount of intraperitoneal free fluid is suggested along the right paracolic gutter. No pancreatic ductal dilatation is seen. No focal fluid pancreatic fluid collections are seen. Small right renal cyst is noted. No focal hepatic lesions are seen. Adrenal glands are not well visualized. IMPRESSION: 1. Cholelithiasis without evidence of acute cholecystitis. 2. There is extrahepatic biliary ductal dilatation without evidence of defects to suggest choledocholithiasis. 3. There are edematous changes in the pancreas with a small amount of intraperitoneal free fluid. No focal pancreatic fluid collections or pancreatic ductal dilatation is seen. 4. No focal hepatic lesions are identified. 5. Otherwise abdominal imaging is limited due to respiratory motion.
[2016-11-24 22:55] VITALS: BP 160/77
[2016-11-25 00:52] LABS: PTT 116 SEC (25-37)
--- NOTE | 2016-11-25 08:43 | PN- Housestaff ---
Subjective Follow-up For: Acute pancreatitis Tele-Events Since Last Visit: A fracture, heart rate between 87 Subjective: Patient seen and examined this morning. Sitting in chair in no acute distress. Continues to have mild abdominal pain, denies any nausea, vomiting. We'll advance the diet to clear liquids. White count has increased to 23,000, though she remains afebrile. MRCP done yesterday showed evidence of extrahepatic biliary dilatation. Review of Systems Constitutional: Denies: chills, fever. Respiratory: Denies: cough, short of breath, sputum production. Gastrointestinal: Reports: abdominal pain. Denies: constipation, diarrhea, nausea, vomiting. Genitourinary: Denies: dysuria, frequency. Objective Last 24 Hrs of Vital Signs/I&O Vital Signs Date Time Temp Pulse Resp B/P B/P Pulse O2 O2 Flow FiO2 Mean Ox Delivery Rate 11/25 1405 97.9 89 20 160/70 95 11/25 0800 94 Nasal 3.0L Cannula 11/25 0000 92 Nasal 3.0L Cannula 11/24 2255 99.7 86 22 160/77 92 Nasal 3.0L Cannula 11/24 1613 98.5 85 20 164/80 94 Nasal 3.0L Cannula 11/24 1600 96 Nasal 3.0L Cannula Intake & Output 11/25 1600 06 0800 06/06 0000 Intake Total 635.8 555.2 676.7 Output Total 800 200 400 Balance -164.2 355.2 276.7 Intake, IV 515.8 555.2 676.7 Intake, Oral 120 0 0 Number 0 Bowel Movements Output, Urine 800 200 400 Patient 68.181 kg Weight Physical Exam General Appearance: Alert, Oriented X3, Cooperative, No Acute Distress Cardiovascular: Regular Rate, Normal S1, Normal S2, No Murmurs Lungs: Clear to Auscultation, Normal Air Movement Abdomen: Normal Bowel Sounds, Soft, No Tenderness Extremities: No Clubbing, No Cyanosis, No Edema Current Medications: Current Medications Sig/Chinyere Start time Last Medication Dose Route Stop Time Status Admin Ampicillin Sodium/ 3,000 MG Q6H /04 2200 AC / Sulbactam Sodium IV 0917 Sodium Chloride 100 ML Atropine Sulfate 1 MG ONE PRN / 1700 AC IV Dextrose/Sodium 1,000 ML Q20H /05 1130 AC Chloride IV 1452 Furosemide 20 MG ONCE ONE 11/25 1130 DC 11/25 IV 11/25 1131 1248 Heparin Sodium 25,000 UNIT Q24H 11/24 0730 DC 11/24 (Porcine) IV 0843 Sodium Chloride 500 ML Insulin Human Regular 2 UNITS .STK-MED ONE 11/25 0529 DC IV 11/25 0530 Insulin Human Regular 2 UNITS .STK-MED ONE 11/24 1808 DC IV 11/24 1809 Insulin Human Regular 0 Q6 11/23 1800 AC 11/25 SC 1245 Lorazepam 0.25 MG ONCE PRN 11/24 2030 AC 11/24 IV 2202 Morphine Sulfate 1 MG Q4P PRN 11/23 1700 AC 11/25 IV 0322 Pantoprazole Sodium 40 MG DAILY 11/24 1000 AC 11/25 IV 0921 Patient Medication 1 ED .STK-MED ONE 11/25 1345 NH Teaching ED 11/25 1346 Prochlorperazine 5 MG Q4P PRN 11/23 1915 AC IV Rivaroxaban 15 MG DAILY 11/25 1115 AC 11/25 PO 1247 Last 24 Hrs of Lab/Mejia Results Last 24 Hrs of Labs/Mics: Laboratory Tests 11/25/16 0825: TSH Cancelled, Free T4 Cancelled 11/25/16 0825: Anion Gap 7, Estimated GFR 53 L, BUN/Creatinine Ratio 29.0 H, Total Bilirubin 1.8 H, Direct Bilirubin 1.1 H, AST 456 H, ALT 528 H, Alkaline Phosphatase 224 H, Total Protein 5.5 L, Albumin 2.8 L, TSH 2.080, Free T4 1.33, APTT 73 H, CBC w Diff NO MAN DIFF REQ, RBC 4.02 L, MCV 99.4 H, MCH 32.2 H, RDW 16.0 H, MPV 10.5 H, Gran % 90.0 H, Lymphocytes % 3.9 L, Monocytes % 6.1, Eosinophils % 0, Basophils % 0 L, Absolute Granulocytes 20.7 H, Absolute Lymphocytes 0.9 L, Absolute Monocytes 1.4 H, Absolute Eosinophils 0, Absolute Basophils 0, PUBS MCHC 32.4 L 11/24/16 2340: APTT 116 *H Assessment/Plan Assessment: Ms. Perez is a pleasant 86 year old female with PMH type 2 diabetes mellitus, HTN, HLD, congestive heart failure with reduced ejection fraction (35- 40%), CAD, VA s/p CABG, atrial fibrillation on xarelto, GERD, GI bleed and gout who presented to [facility] due to sudden-onset, 03/31, stabbing epigastric pain. She was initially admitted to ICU for management of acute pancreatitis, Atrial fibrillation with slow ventricular response. She has been downgraded to telemetry floor on 11/24. We are currently monitoring her for the following condition 1. Acute pancreatitis: Patient presented with acute epigastric pain, [place] 2 score = 10, she was kept nothing by mouth, IV hydration, IV pain control. MRCP showed evidence of extrahepatic been very dilatation without evidence of any gallstones. She was started on IV Unasyn, IV PPI, LFTs are monitored Currently waiting for GI input for possibility of any GI intervention in near future. * Xeralto on hold pending GI input. * Patient to see on IV heparin pending above. 2. Atrial fibrillation with slow ventricular response * Denies to be in A. fib though no repeat episodes of bradycardia * Xaralto currently on hold DNR/DNI Diet: NPO DVTP: ALPS Pain: Severe pain pathway Problem List: 1. Atrial flutter 2. Pancreatitis, acute 3. Bradycardia Pain Ratin Pain Location: Left-sided abdominal Pain Goal: Remain pain free Pain Plan: Morphine 1 mg every 4 as needed Tomorrow's Labs & Rationales: CBC BEP next and LFTs
--- NOTE | 2016-11-25 08:52 | PN- Student ---
Subjective Subjective: Patient was seen and examined this morning. No acute overnight events reported. Patient denies any other complaints other than mild abdominal pain in the epigastric and left upper quadrant. Objective Objective: Vital Signs Date Time Temp Pulse Resp B/P B/P Pulse O2 O2 Flow FiO2 Mean Ox Delivery Rate 11/25 0800 94 Nasal 3.0L Cannula 11/25 0000 92 Nasal 3.0L Cannula 11/24 2255 99.7 86 22 160/77 92 Nasal 3.0L Cannula 11/24 1613 98.5 85 20 164/80 94 Nasal 3.0L Cannula 11/24 1600 96 Nasal 3.0L Cannula Intake & Output 11/25 1600 11/25 0800 11/25 0000 Intake Total 555.2 676.7 Output Total 200 400 Balance 355.2 276.7 Intake, IV 555.2 676.7 Intake, Oral 0 0 Output, Urine 200 400 Patient 150 lb Weight Physical Exam General Appearance Alert, Oriented X3, Cooperative, No Acute Distress Skin No Rashes, No Significant Lesion HEENT Atraumatic, EOMI, Mucous Membr. moist/pink Neck Supple, No JVD, No thryomegaly Cardiovascular Irregular, Normal S1 and S2, No Murmurs Lungs Bilateral Rales Abdomen Tenderness to Palpation in Epigastric Region and Left Upper Quadrant Extremities No Clubbing, No Cyanosis, No Edema, No Tenderness/Swelling Current Medications Sig/Chinyere Start time Last Medication Dose Route Stop Time Status Admin Ampicillin Sodium/ 3,000 MG Q6H / 2200 / Sulbactam Sodium IV 0319 Sodium Chloride 100 ML Atropine Sulfate 1 MG ONE PRN / 1700 AC IV Dextrose/Sodium 1,000 ML Q20H /05 1130 AC 06/ Chloride IV 1140 Heparin Sodium 25,000 UNIT Q24H / 0730 DC / (Porcine) IV 0843 Sodium Chloride 500 ML Insulin Human Regular 2 UNITS .STK-MED ONE 11/24 1808 DC IV / 1809 Insulin Human Regular 0 Q6 / 1800 / SC 0530 Lactated Ringer's 1,000 ML Q13H / 0030 DC / IV 0103 Lorazepam 0.25 MG ONCE PRN 11/24 2030 AC / IV 2202 Morphine Sulfate 1 MG ONCE ONE 11/24 1300 DC 06/05 IV 06/ 1301 1306 Morphine Sulfate 1 MG Q4P PRN 11/23 1700 AC 11/25 IV 0322 Pantoprazole Sodium 40 MG DAILY 11/24 1000 AC 11/24 IV 1135 Prochlorperazine 5 MG Q4P PRN 11/23 1915 AC IV Laboratory Tests 11/25/16 0825: TSH Cancelled, Free T4 Cancelled 11/25/16 0825: Anion Gap 7, Estimated GFR 53 L, BUN/Creatinine Ratio 29.0 H, Total Bilirubin 1.8 H, Direct Bilirubin 1.1 H, AST 456 H, ALT 528 H, Alkaline Phosphatase 224 H, Total Protein 5.5 L, Albumin 2.8 L, TSH 2.080, Free T4 1.33, APTT 73 H, CBC w Diff NO MAN DIFF REQ, RBC 4.02 L, MCV 99.4 H, MCH 32.2 H, RDW 16.0 H, MPV 10.5 H, Gran % 90.0 H, Lymphocytes % 3.9 L, Monocytes % 6.1, Eosinophils % 0, Basophils % 0 L, Absolute Granulocytes 20.7 H, Absolute Lymphocytes 0.9 L, Absolute Monocytes 1.4 H, Absolute Eosinophils 0, Absolute Basophils 0, PUBS MCHC 32.4 L 11/24/16 2340: APTT 116 *H 11/24/16 1430: APTT > 120 *H Assessment/Plan Assessment: Patient is an 86-year-old female with a past medical history significant for type 2 diabetes mellitus, hypertension, hyperlipidemia, congestive heart failure with reduced ejection fraction (35-40%), CAD, VA s/p CABG, atrial fibrillation on xarelto, GERD, GI bleed, and gout who presented to [facility] complaining of sudden-onset, 03/31, stabbing epigastric pain. 1. Acute Pancreatitis 2. Atrial Fibrillation with Slow Ventricular Response 3. Transaminitis 4. History of Hypertension and Hyperlipidemia 5. Type 2 Diabetes Mellitus 6. Hypothyroidism ABDOMEN MRI - 11/24/2016 IMPRESSION: 1. Cholelithiasis without evidence of acute cholecystitis. 2. There is extrahepatic biliary ductal dilatation without evidence of defects to suggest choledocholithiasis. 3. There are edematous changes in the pancreas with a small amount of intraperitoneal free fluid. No focal pancreatic fluid collections or pancreatic ductal dilatation is seen. 4. No focal hepatic lesions are identified. 5. Otherwise abdominal imaging is limited due to respiratory motion. - - - - - - - - - - - - - - - - - - - - - - - - - - - - - - - - - - - - - - - - - - - - 1. Acute Pancreatitis. Likely gallstone pancreatitis as the patient has elevated aminotransferases, alkaline phosphatase, and extrahepatic biliary ductal dilation and edematous changes of the pancreas with intraperitoneal free fluid on MRCP. [place] 2 score = 10. Right upper quadrant ultrasound showed evidence of cholelithiasis with diffuse mural thickening (no signs of acute cholecystitis). As per cardiology consult, if no surgical intervention is planned, Xarelto should be resumed for stroke prevention. Check with GI to determine whether they are planning any further procedures. D/C heparin drip and start Xarelto if no procedures are planned. * Start Clear liquid diet as tolerated * D5-NS Q20 IV * Morphine 1 mg Q4P PRN IV * Trend ICU bundle, closely monitor electrolytes and renal function * Continue empiric IV unasyn * Protonix 40 mg IV * Continue heparin drip tomorrow morning; hold Xarelto pending GI input * Strict Is/Os, daily weights * Thank you GI Consult * Thank you Cardiology Consult 2. Atrial Fibrillation with Slow Ventricular Response. Patient had a heart rate of 42 on admission without hemodynamic instability. Dr. Raz MD consultation appreciated, continue to follow up recommendations. Patient has previously requested that no permanent pacemaker be placed. As per Cardiology consult, there is no indication for emergent pacer at this time. * Continuous telemetry monitoring * ACS ruled out with troponin/EKG negative x 3 * Atropine 1 mg PRN * Hold magnesium as excess magnesium may contribute to bradycardia * Continue heparin drip tomorrow morning; hold Xarelto pending GI input * Lyme titer negative * Thank you Cardiology consult 3. Transaminitis * Likely secondary to choledocholithiasis * Noted ductal dilatation on CT abdomen/pelvis * Protonix 40 mg daily PO * Monitor LFTs * Hold statins, nephrotoxins * Thank you GI consult 4. History of Hypertension and Hyperlipidemia * Monitor vital signs Q shift * Hold antihypertensives in the setting of borderline low BP * Hold statin 2/2 transaminitis 5. Type 2 Diabetes Mellitus * As patient is NPO, use regular insulin Q6 * Accuchecks Q6 * IV hydration per GI recommendations 6. Hypothyroidism * TSH high, FT4 high, possibly thyroiditis in acute illness? * Repeat TFTs tomorrow and restart thyroid supplementation DNR/DNI Diet: NPO DVTP: ALPS DVTP: ALPS
[2016-11-25 10:02] LABS: ABSOLUTE BASOPHIL COUNT 0 /CUMM (0.0-0.2); ABSOLUTE EOSINOPHIL COUNT 0 /CUMM (0.0-0.7); ABSOLUTE GRANULOCYTE CT 20.7 /CUMM (1.4-6.5); ABSOLUTE LYMPH COUNT 0.9 /CUMM (1.2-3.4); ABSOLUTE MONOCYTE COUNT 1.4 /CUMM (0.10-0.60); BASOPHIL % 0 % (0.0-2.0); EOSINOPHIL % 0 % (0-5); MEAN CORPUSCULAR HGB 32.2 PG (27.0-31.0); MEAN CORPUSCULAR HGB CONC 32.4 G/DL (33.0-37.0); MEAN CORPUSCULAR VOLUME 99.4 FL (81.0-99.0); MEAN PLATELET VOLUME 10.5 FL (7.4-10.4); PLATELET COUNT 185 /CUMM (130-400); RED BLOOD CELL CT 4.02 /CUMM (4.20-5.40)
--- NOTE | 2016-11-25 10:12 | PN- Cardiology ---
Subjective Subjective: Patient states that she feels well overall. She denies chest pain or shortness of breath. Review of Systems: Eyes no blurred or double vision Ears no deafness or ringing Nose and throat no recurrent sinusitis Lungs per history of present illness Heart per history of present illness Abdomen no nausea vomiting Musculoskeletal occasional muscle and joint pains Psych no anxiety or depression Neuro without recurrent headache or seizures Endocrine no heat or cold intolerance Objective Vital Signs and I&Os Vital Signs Date Time Temp Pulse Resp B/P B/P Pulse O2 O2 Flow FiO2 Mean Ox Delivery Rate 11/25 0000 92 Nasal 3.0L Cannula 11/24 2255 99.7 86 22 160/77 92 Nasal 3.0L Cannula 11/24 1613 98.5 85 20 164/80 94 Nasal 3.0L Cannula 11/24 1600 96 Nasal 3.0L Cannula Intake & Output 11/25 1600 11/25 0800 11/25 0000 11/24 1600 11/24 0800 11/24 0000 Intake Total 555.2 676.7 574 704 752 Output Total 200 400 400 265 330 Balance 355.2 276.7 174 439 422 Intake, IV 555.2 676.7 574 704 752 Intake, Oral 0 0 0 Number 0 Bowel Movements Output, Urine 200 400 400 265 330 Patient 150 lb Weight Weight Bed scale Measurement Method Physical Exam: Patient is a well-developed well-nourished female appearing in no acute distress HEENT is unremarkable Neck is supple there is no JVD Lungs bilateral rales Heart irregular rhythm S1 and S2 are normal no murmurs gallops or rubs Abdomen bowel sounds positive Extremities without edema Current Medications: Current Medications Sig/Chinyere Start time Last Medication Dose Route Stop Time Status Admin Ampicillin Sodium/ 3,000 MG Q6H /04 2200 AC 11/25 Sulbactam Sodium IV 0917 Sodium Chloride 100 ML Atropine Sulfate 1 MG ONE PRN / 1700 AC IV Dextrose/Sodium 1,000 ML Q20H / 1130 AC / Chloride IV 1140 Heparin Sodium 25,000 UNIT Q24H / 0730 DC 11/24 (Porcine) IV 0843 Sodium Chloride 500 ML Insulin Human Regular 2 UNITS .STK-MED ONE 11/24 1808 DC IV / 1809 Insulin Human Regular 0 Q6 / 1800 AC 11/25 SC 0530 Lactated Ringer's 1,000 ML Q13H 11/24 0030 DC 11/24 IV 0103 Lorazepam 0.25 MG ONCE PRN 11/24 2030 AC 11/24 IV 2202 Morphine Sulfate 1 MG ONCE ONE 11/24 1300 DC 11/24 IV 11/24 1301 1306 Morphine Sulfate 1 MG Q4P PRN 11/23 1700 AC 11/25 IV 0322 Pantoprazole Sodium 40 MG DAILY 11/24 1000 AC 11/25 IV 0921 Prochlorperazine 5 MG Q4P PRN 11/23 1915 AC IV Results Last 48 Hrs of Labs/Mics: Laboratory Tests 11/25/16 0825: TSH Cancelled, Free T4 Cancelled 11/25/16 0825: Sodium Pending, Potassium Pending, Chloride Pending, Carbon Dioxide Pending, Anion Gap Pending, BUN Pending, Creatinine Pending, BUN/Creatinine Ratio Pending , Total Bilirubin Pending, Direct Bilirubin Pending, AST Pending, ALT Pending, Alkaline Phosphatase Pending, Total Protein Pending, Albumin Pending, TSH Pending, Free T4 Pending, APTT Pending, CBC w Diff Pending, WBC Pending, RBC Pending, Hgb Pending, Hct Pending, MCV Pending, MCH Pending, RDW Pending, Plt Count Pending, MPV Pending, PUBS MCHC Pending 11/24/16 2340: APTT 116 *H 11/24/16 1430: APTT > 120 *H 11/24/16 0545: Lactic Acid 1.9 11/24/16 0500: Ur Random Creatinine 92.1, Ur Random Sodium < 5 L, Ur Random Potassium 42.7, Fraction Sodium Excret 11/24/16 0440: Anion Gap 8, Estimated GFR 47 L, Glucose 122 H, Calcium 7.7 L, Phosphorus 4.2 , Magnesium 3.9 H, Total Bilirubin 2.1 H, AST 1878 H, ALT 933 H, Albumin 3.2 L, PT 11.5, INR 1.10, CBC w Diff MAN DIFF ORDERED, RBC 3.93 L, MCV 99.6 H, MCH 32.2 H, RDW 15.9 H, MPV 10.2, Gran % 89.9 H, Lymphocytes % 5.0 L, Monocytes % 5.1, Eosinophils % 0, Basophils % 0 L, Absolute Granulocytes 16.3 H, Segmented Neutrophils 84 H, Band Neutrophils 7 H, Absolute Lymphocytes 0.9 L, Lymphocytes 6 L, Monocytes 3, Absolute Monocytes 0.9 H, Absolute Eosinophils 0, Absolute Basophils 0, Platelet Estimate ADEQUATE, PUBS MCHC 32.3 L 11/24/16 0347: Ref Lab Test Result Pending 11/24/16 0045: Lactic Acid 2.6 H 11/24/16 004: Anion Gap 9, Estimated GFR 47 L, Glucose 161 H, Calcium 7.8 L, Phosphorus 4.1 , Magnesium 3.8 H, Total Bilirubin 1.9 H, Direct Bilirubin 1.4 H, AST 2398 H , ALT 1240 H, Troponin I 0.09, Albumin 3.3 L, Amylase 1618 H, CBC w Diff MAN DIFF ORDERED, RBC 3.81 L, MCV 98.0, MCH 31.8 H, RDW 15.4 H, MPV 9.5, Gran % 91.3 H, Lymphocytes % 4.1 L, Monocytes % 4.6, Eosinophils % 0, Basophils % 0 L, Absolute Granulocytes 15.8 H, Segmented Neutrophils 85 H, Band Neutrophils 7 H, Absolute Lymphocytes 0.7 L, Lymphocytes 3 L, Monocytes 5, Absolute Monocytes 0.8 H, Absolute Eosinophils 0, Absolute Basophils 0, Platelet Estimate ADEQUATE, Anisocytosis 1+, Macrocytic Cells FEW, PUBS MCHC 32.4 L 11/24/16 0030: Troponin I Cancelled 11/23/16 2200: Sodium Cancelled, Potassium Cancelled, Chloride Cancelled, Carbon Dioxide Cancelled, Anion Gap Cancelled, BUN Cancelled, Creatinine Cancelled, Glucose Cancelled, Calcium Cancelled, Phosphorus Cancelled, Magnesium Cancelled, Total Bilirubin Cancelled, AST Cancelled, ALT Cancelled, Alkaline Phosphatase Cancelled, Albumin Cancelled 11/23/161999: Urinalysis LIGHT H, Urine Color YEL, Urine Clarity CLEAR, Urine pH 7.0, Ur Specific [place] 1.010, Urine Protein 30 H, Urine Ketones NEG, Urine Nitrite NEG, Urine Bilirubin NEG, Urine Urobilinogen 0.2, Ur Leukocyte Esterase NEG, Ur Microscopic SEDIMENT EXAMINED, Urine RBC 1-3, Ur Epithelial Cells FEW, Hyaline Casts RARE H, Urine Hemoglobin NEG, Urine Glucose NEG 11/23/161949: Lactic Acid 2.3 H 06/04/17 1950: Anion Gap 9, Estimated GFR 47 L, Glucose 130 H, Calcium 7.9 L, Phosphorus 4.2 , Magnesium 3.6 H, Total Bilirubin 1.9 H, AST 3093 H, ALT 1310 H, Alkaline Phosphatase 284 H, Troponin I 0.09, Albumin 3.3 L 11/23/16 1657: TSH Cancelled 11/23/16 1614: Lactic Acid 3.1 H 11/23/16 1237: Anion Gap 11, Estimated GFR 53 L, BUN/Creatinine Ratio 35.0 H, Glucose 195 H, Lactic Acid 3.8 H, Calcium 8.7, Magnesium 3.6 H, Total Bilirubin 1.1, AST 463 H, ALT 163 H, Alkaline Phosphatase 281 H, Troponin I 0.04, [id number] Pept 2160 H, Total Protein 6.7, Albumin 4.0, Globulin 2.7, Albumin/Globulin Ratio 1.5, Triglycerides 143, Cholesterol 143, LDL Cholesterol, Calc 16 L, HDL Cholesterol 99 H, Cholesterol/HDL Ratio 1, Lipase > 36689 H, TSH 5.000 H, Thyroxine (T4) 12.3 H, PT 13.7 H, INR 1.31 H, CBC w Diff NO MAN DIFF REQ, RBC 4.37, MCV 99.6 H, MCH 32.1 H, RDW 16.0 H, MPV 10.0, Gran % 77.7 H, Lymphocytes % 15.4 L, Monocytes % 5.3, Eosinophils % 1.4, Basophils % 0.2, Absolute Granulocytes 11.0 H, Absolute Lymphocytes 2.2, Absolute Monocytes 0.8 H, Absolute Eosinophils 0.2, Absolute Basophils 0, PUBS MCHC 32.2 L, Lyme Disease Antibody 0.15 Microbiology 11/24 1999 URINE ROUT: Urine Culture - COMP 11/23 1800 UPPER RESP: Surveillance Culture - COMP 11/23 1800 GI: Surveillance Culture - COMP Telemetry personally reviewed atrial flutter with controlled ventricular response Assessment/Plan Assessment/Plan 1. Acute gallstone pancreatitis 2. History of coronary artery disease, (bypass surgery in 1994 with a MARIN to the LAD, vein grafts to the diagonal, PDA and distal RCA) 3. Known atrial flutter with slow ventricular response rate, on Xarelto 4. Ischemic cardiomyopathy with recovery, chronic CHF 5. Diabetes/hypertension/hyperlipidemia Recommendations 1. Continue to monitor on telemetry 2. Recommend diuresing given evidence of congestive heart failure on physical exam 3. If no surgical intervention is planned would resume Xarelto for stroke prevention in atrial flutter 4. She has known conduction system disease but there is no indication for pacemaker at present. She has refused a permanent pacemaker previously 5. Echocardiogram is pending Continue telemetry? Yes
[2016-11-25 10:22] LABS: PTT 73 SEC (25-37)
--- NOTE | 2016-11-25 13:37 | PN- Att Addend ---
See Addendum Attending MD Review Statement Attending Statement Attending MD Statement: examined this patient, discuss w/resident/PA/COMMODITY LEAD, agreed w/resident/PA/COMMODITY LEAD, reviewed EMR data (avail), discussed w/nursing, discussed w/ case mgmt Attending Assessment/Plan: Laboratory Tests 11/25/16 0825: TSH Cancelled, Free T4 Cancelled 11/25/16 0825: Anion Gap 7, Estimated GFR 53 L, BUN/Creatinine Ratio 29.0 H, Total Bilirubin 1.8 H, Direct Bilirubin 1.1 H, AST 456 H, ALT 528 H, Alkaline Phosphatase 224 H, Total Protein 5.5 L, Albumin 2.8 L, TSH 2.080, Free T4 1.33, APTT 73 H, CBC w Diff NO MAN DIFF REQ, RBC 4.02 L, MCV 99.4 H, MCH 32.2 H, RDW 16.0 H, MPV 10.5 H, Gran % 90.0 H, Lymphocytes % 3.9 L, Monocytes % 6.1, Eosinophils % 0, Basophils % 0 L, Absolute Granulocytes 20.7 H, Absolute Lymphocytes 0.9 L, Absolute Monocytes 1.4 H, Absolute Eosinophils 0, Absolute Basophils 0, PUBS MCHC 32.4 L 11/24/16 2340: APTT 116 *H 11/24/16 1430: APTT > 120 *H Vital Signs Date Time Temp Pulse Resp B/P B/P Pulse O2 O2 Flow FiO2 Mean Ox Delivery Rate 11/25 0800 94 Nasal 3.0L Cannula 11/25 0000 92 Nasal 3.0L Cannula 11/24 2255 99.7 86 22 160/77 92 Nasal 3.0L Cannula 11/24 1613 98.5 85 20 164/80 94 Nasal 3.0L Cannula 11/24 1600 96 Nasal 3.0L Cannula Patient seen and examined at bedside. 86-year-old female admitted with acute pancreatitis secondary to gallstones. He was initially admitted to ICU and then transferred out of ICU on 11/24. MRCP done shows extrahepatic biliary dilatation but no filling defects suggestive of CBD stones. Again shows the presence of gallstones but no acute cholecystitis. We will check with gastroenterology to see if they are planning any further procedures. If no further procedures planned then we will DC the heparin drip and start her back on Xarelto. We have started her on clear liquid diet today and will see how she tolerates it. Atrial flutter on telemetry-no more bradycardic episodes today. We will transition to Xarelto if GI okay with that. We will also try to wean her off oxygen. Worsening leukocytosis to 23,000 today with left shift. Patient currently is on IV Unasyn and we will check to see if she had any fevers today and will also check with the nurse if she had any diarrhea. If wbc cont to increase we will do furtherwork to find out the etiology. Could just be reactive secondary to acute pancreatitis given that she has been afebrile.
[2016-11-25 14:05] VITALS: BP 160/70
[2016-11-25 17:08] VITALS: BP 179/80
--- NOTE | 2016-11-25 21:09 | ECHOCARDIOGRAM REPORT ---
CHICO PATTERSON Age: 86 : 1930 Gender: F Exam Date: 11/25/2016 19:03 Exam Location: [address] Ht (in): 61 Wt (lb): 150 BSA: 1.73 BP: 160 / 77 Ordering Physician: PATO SAUCEDO MD Referring Physician: Brent Redding MD Technologist: Kiara Vela [facility] [place] Room Number: 180-02 Indications: AFIB/FLUTTER Rhythm: Technical Quality: Fair FINDINGS Left Ventricle Left ventricular cavity size normal. Left ventricular wall thickness mildly increased. Moderate to severe septal/apical hypokinesis. Left ventricular ejection fraction is estimated at 40 %. Right Ventricle Normal right ventricular size. Mildly reduced right ventricular global systolic function. Right Atrium Mild right atrial dilatation. Left Atrium Mild to moderate left atrial dilatation. Mitral Valve Moderate mitral annular calcification. No mitral stenosis. Mild-to- moderate mitral regurgitation. Aortic Valve No aortic stenosis. Aortic sclerosis. Trileaflet aortic valve. Tricuspid Valve Structurally normal tricuspid valve. Dsfd-wk-uugfdqly tricuspid regurgitation. Right ventricular systolic pressure estimated at > 55 mmHg. Pulmonic Valve Pulmonic valve not well visualized, grossly normal. Pericardium No pericardial effusion. Great Vessels Normal size aortic root. CONCLUSIONS Left ventricular cavity size normal. Left ventricular wall thickness mildly increased. Moderate to severe septal/apical hypokinesis. Left ventricular ejection fraction is estimated at 40 %. Normal right ventricular size. Mildly reduced right ventricular global systolic function. Mild right atrial dilatation. Mild to moderate left atrial dilatation. Uzev-tc-othdrcut mitral regurgitation. Hbxc-ab-fnmdieij tricuspid regurgitation. Right ventricular systolic pressure estimated at > 55 mmHg. Jian Crandall M.D. (Electronically Signed) Final Date: 25 November 2016 21:08 MEASUREMENTS (Male / Female) Normal Values 2D ECHO LV Diastolic Diameter PLAX 4.1 cm 4.2 - 5.9 / 3.9 - 5.3 cm LV Systolic Diameter PLAX 3.2 cm 2.1 - 4.0 cm LV Fractional Shortening PLAX 22.0 % 25 - 46 % LV Ejection Fraction 2D Teich 44.8 % IVS Diastolic Thickness 1.4 cm LVPW Diastolic Thickness 1.4 cm LV Relative Wall Thickness 0.7 RV Internal Dim ED PLAX 3.3 cm 1.9 - 3.8 cm LVOT Diameter 1.8 cm Aortic Root Diameter 2.7 cm LA Systolic Diameter LX 4.0 cm 3.0 - 4.0 / 2.7 - 3.8 cm LA Volume 50.0 cm 18 - 58 / 22 - 52 cm Ascending Aorta Diameter 3.3 cm DOPPLER AV Peak Velocity 151.0 cm/s AV Peak Gradient 9.1 mmHg AV Mean Velocity 113.0 cm/s AV Mean Gradient 6.0 mmHg AV Velocity Time Integral 30.8 cm LVOT Peak Velocity 95.2 cm/s LVOT Peak Gradient 3.6 mmHg LVOT Mean Velocity 65.8 cm/s LVOT Mean Gradient 2.0 mmHg LVOT Velocity Time Integral 17.4 cm LVOT Stroke Volume 44.3 cm AV Area Cont Eq vti 1.4 cm AV Area Cont Eq pk 1.6 cm MV Peak Velocity 120.0 cm/s MV Peak Gradient 5.8 mmHg MV Mean Velocity 81.3 cm/s MV Mean Gradient 3.0 mmHg Mitral E Point Velocity 98.0 cm/s Mitral A Point Velocity 83.9 cm/s Mitral E to A Ratio 1.2 MV PHT Velocity 125.0 cm/s MV Deceleration Esmeralda 556.0 cm/s MV Pressure Half Time 67.4 ms MV Area PHT 3.3 cm MV Deceleration Time 121.0 ms TR Peak Velocity 339.0 cm/s TR Peak Gradient 46.0 mmHg Right Atrial Pressure 10.0 mmHg Pulmonary Artery Systolic Pressu 56.0 mmHg Right Ventricular Systolic Press 56.0 mmHg PV Peak Velocity 99.2 cm/s PV Peak Gradient 3.9 mmHg PV Mean Velocity 63.4 cm/s PV Mean Gradient 2.0 mmHg PV Velocity Time Integral 19.4 cm LV E' Lateral Velocity 11.0 cm/s Mitral E to LV E' Lateral Ratio 8.9 LV E' Septal Velocity 4.6 cm/s Mitral E to LV E' Septal Ratio 21.4
--- NOTE | 2016-11-25 21:14 | PN- Gastroenterology ---
Assessment/Plan Assessment/Recommendations: Acute gallstone pancreatitis, likely secondary to choledocholithiasis. No retained CBD stones on MRCP. Liver enzymes did elevate significantly but are improving, as is bilirubin. Improvement in pain and tenderness. No fever, but concerning for worsening leukocytosis. The patient remains anticoagulated, and was given 1 dose of Xarelto today. Discussion was held with the patient and family about therapeutic options at this point, which include (1) no intervention, with likelihood of recurrent pancreatitis or other biliary process; (2) ERCP with sphincterotomy to prophylax future episodes of pancreatitis and biliary obstruction; (3) cholecystectomy. The patient does not wish conservative/expectant therapy. She and her daughter are leaning towards ERCP. However given leukocytosis of unclear cause, tachypnea and evidence of fluid overload, and administration of Xarelto today, she is not an optimal candidate at this time. Recommendations * Continue clear liquid diet, do not advance * Follow-up CBC; if leukocytosis persists, attempt to determine etiology. In this context, may benefit from CT scan with pancreatic protocol. * Parenteral analgesia and antiemetics as needed * Cardiology follow-up regarding optimization for ERCP: CHF, bradycardia * Continue intravenous heparin. Once again, hold Xarelto. * Follow-up LFTs * Continue antibiotics * PPI Subjective Subjective: Still with some abdominal pain, especially on inspiration. No nausea or vomiting. No fever. Objective Vital Signs and I&Os Vital Signs Date Time Temp Pulse Resp B/P B/P Pulse O2 O2 Flow FiO2 Mean Ox Delivery Rate 11/25 1708 99.2 91 17 179/80 94 Nasal 2.5L Cannula 11/25 1600 Nasal 3.0L Cannula 11/25 1405 97.9 89 20 160/70 95 06 0800 94 Nasal 3.0L Cannula 11/25 0000 92 Nasal 3.0L Cannula 11/24 2255 99.7 86 22 160/77 92 Nasal 3.0L Cannula Intake & Output 11/25 1600 11/25 0400 11/24 0400 11/23 0400 Intake Total 1191.0 676.7 1278 752 500 Output Total 1000 400 665 330 Balance 191.0 276.7 613 422 500 Intake, IV 1071.0 676.7 1278 752 500 Intake, Oral 120 0 0 Number 0 0 Bowel Movements Output, Urine 1000 400 665 330 Patient 150 lb 150 lb 143 lb Weight Weight Bed scale Estimated Measurement Method Physical Exam: Alert and oriented with normal cognition. Slightly tachypneic. Abdomen soft and nondistended with normal bowel sounds; tender in the epigastrium. Current Medications: Current Medications Sig/Chinyere Start time Last Medication Dose Route Stop Time Status Admin Ampicillin Sodium/ 3,000 MG Q6H / 2200 AC 11/25 Sulbactam Sodium IV 1715 Sodium Chloride 100 ML Atropine Sulfate 1 MG ONE PRN 11/23 1700 AC IV Dextrose/Sodium 1,000 ML Q20H 11/24 1130 AC 11/25 Chloride IV 1452 Furosemide 20 MG ONCE ONE 11/25 1130 DC 11/25 IV 11/25 1131 1248 Insulin Human Regular 2 UNITS .STK-MED ONE 11/25 1243 DC IV 11/25 1244 Insulin Human Regular 2 UNITS .STK-MED ONE 11/25 0529 DC IV 11/25 0530 Insulin Human Regular 0 Q6 11/23 1800 AC 11/25 SC 1716 Lorazepam 0.25 MG ONCE PRN 11/24 2030 AC 11/24 IV 2202 Morphine Sulfate 1 MG Q4P PRN 11/23 1700 AC 11/25 IV 0322 Pantoprazole Sodium 40 MG DAILY 11/24 1000 AC 11/25 IV 0921 Patient Medication 1 ED .STK-MED ONE 11/25 1345 DC Teaching ED 11/25 1346 Prochlorperazine 5 MG Q4P PRN 11/23 1915 AC IV Rivaroxaban 15 MG DAILY 11/25 1115 DC 11/25 PO 1247 Results Pertinent Lab Results: Laboratory Tests 11/25 11/25 11/24 0825 0825 2340 Chemistry Sodium (137 - 145 mmol/L) 140 Potassium (3.5 - 5.1 mmol/L) 4.0 Chloride (98 - 107 mmol/L) 106 Carbon Dioxide (22 - 30 mmol/L) 27 Anion Gap (5 - 16) 7 BUN (7 - 17 mg/dL) 29 H Creatinine (0.5 - 1.0 mg/dL) 1.0 Estimated GFR (>60 ml/min) 53 L BUN/Creatinine Ratio (7 - 25 %) 29.0 H Total Bilirubin (0.2 - 1.3 mg/dL) 1.8 H Direct Bilirubin (< 0.4 mg/dL) 1.1 H AST (14 - 36 U/L) 456 H ALT (9 - 52 U/L) 528 H Alkaline Phosphatase (<127 U/L) 224 H Total Protein (6.3 - 8.2 g/dL) 5.5 L Albumin (3.5 - 5.0 g/dL) 2.8 L TSH (0.270 - 4.200 uIU/mL) Cancelled 2.080 Free T4 (0.85 - 1.93 ng/dL) Cancelled 1.33 Coagulation APTT (25 - 37 SEC) 73 H 116 *H Hematology CBC w Diff NO MAN DIFF REQ WBC (4.8 - 10.8 /CUMM) 23.0 H RBC (4.20 - 5.40 /CUMM) 4.02 L Hgb (12.0 - 16.0 G/DL) 12.9 Hct (37 - 47 %) 40.0 MCV (81.0 - 99.0 FL) 99.4 H MCH (27.0 - 31.0 PG) 32.2 H RDW (11.5 - 14.5 %) 16.0 H Plt Count (130 - 400 /CUMM) 185 MPV (7.4 - 10.4 FL) 10.5 H Gran % (42.2 - 75.2 %) 90.0 H Lymphocytes % (20.5 - 51.1 %) 3.9 L Monocytes % (1.7 - 9.3 %) 6.1 Eosinophils % (0 - 5 %) 0 Basophils % (0.0 - 2.0 %) 0 L Absolute Granulocytes (1.4 - 6.5 /CUMM) 20.7 H Absolute Lymphocytes (1.2 - 3.4 /CUMM) 0.9 L Absolute Monocytes (0.10 - 0.60 /CUMM) 1.4 H Absolute Eosinophils (0.0 - 0.7 /CUMM) 0 Absolute Basophils (0.0 - 0.2 /CUMM) 0 PUBS MCHC (33.0 - 37.0 G/DL) 32.4 L 05 06/ 06/05 1430 0545 0500 Chemistry Lactic Acid (0.7 - 2.1 mmol/L) 1.9 Coagulation APTT (25 - 37 SEC) > 120 *H Urines Ur Random Creatinine (mg/dL) 92.1 Ur Random Sodium (30 - 90 mmol/L) < 5 L Ur Random Potassium (mmol/L) 42.7 Fraction Sodium Excret (<1% %) 11/24 11/24 11/24 2680 0347 0045 Chemistry Sodium (137 - 145 mmol/L) 137 Potassium (3.5 - 5.1 mmol/L) 4.6 Chloride (98 - 107 mmol/L) 99 Carbon Dioxide (22 - 30 mmol/L) 30 Anion Gap (5 - 16) 8 BUN (7 - 17 mg/dL) 36 H Creatinine (0.5 - 1.0 mg/dL) 1.1 H Estimated GFR (>60 ml/min) 47 L Glucose (65 - 99 mg/dL) 122 H Lactic Acid (0.7 - 2.1 mmol/L) 2.6 H Calcium (8.4 - 10.2 mg/dL) 7.7 L Phosphorus (2.5 - 4.5 mg/dL) 4.2 Magnesium (1.6 - 2.3 mg/dL) 3.9 H Total Bilirubin (0.2 - 1.3 mg/dL) 2.1 H AST (14 - 36 U/L) 1878 H ALT (9 - 52 U/L) 933 H Albumin (3.5 - 5.0 g/dL) 3.2 L Coagulation PT (9.4 - 12.5 SEC) 11.5 INR (0.90 - 1.19) 1.10 Hematology CBC w Diff MAN DIFF ORDERED WBC (4.8 - 10.8 /CUMM) 18.1 H RBC (4.20 - 5.40 /CUMM) 3.93 L Hgb (12.0 - 16.0 G/DL) 12.6 Hct (37 - 47 %) 39.1 MCV (81.0 - 99.0 FL) 99.6 H MCH (27.0 - 31.0 PG) 32.2 H RDW (11.5 - 14.5 %) 15.9 H Plt Count (130 - 400 /CUMM) 195 MPV (7.4 - 10.4 FL) 10.2 Gran % (42.2 - 75.2 %) 89.9 H Lymphocytes % (20.5 - 51.1 %) 5.0 L Monocytes % (1.7 - 9.3 %) 5.1 Eosinophils % (0 - 5 %) 0 Basophils % (0.0 - 2.0 %) 0 L Absolute Granulocytes (1.4 - 6.5 /CUMM) 16.3 H Segmented Neutrophils (42.2 - 75.2 %) 84 H Band Neutrophils (0.0 - 5.0 %) 7 H Absolute Lymphocytes (1.2 - 3.4 /CUMM) 0.9 L Lymphocytes (20.5 - 51.1 %) 6 L Monocytes (1.7 - 9.3 %) 3 Absolute Monocytes (0.10 - 0.60 /CUMM) 0.9 H Absolute Eosinophils (0.0 - 0.7 /CUMM) 0 Absolute Basophils (0.0 - 0.2 /CUMM) 0 Platelet Estimate (ADEQUATE) ADEQUATE PUBS MCHC (33.0 - 37.0 G/DL) 32.3 L Miscellaneous Ref Lab Test Result Pending 11/24 11/24 0045 0030 Chemistry Sodium (137 - 145 mmol/L) 137 Potassium (3.5 - 5.1 mmol/L) 4.7 Chloride (98 - 107 mmol/L) 99 Carbon Dioxide (22 - 30 mmol/L) 29 Anion Gap (5 - 16) 9 BUN (7 - 17 mg/dL) 34 H Creatinine (0.5 - 1.0 mg/dL) 1.1 H Estimated GFR (>60 ml/min) 47 L Glucose (65 - 99 mg/dL) 161 H Calcium (8.4 - 10.2 mg/dL) 7.8 L Phosphorus (2.5 - 4.5 mg/dL) 4.1 Magnesium (1.6 - 2.3 mg/dL) 3.8 H Total Bilirubin (0.2 - 1.3 mg/dL) 1.9 H Direct Bilirubin (< 0.4 mg/dL) 1.4 H AST (14 - 36 U/L) 2398 H ALT (9 - 52 U/L) 1240 H Troponin I (< 0.11 ng/ml) 0.09 Cancelled Albumin (3.5 - 5.0 g/dL) 3.3 L Amylase (30 - 110 U/L) 1618 H Hematology CBC w Diff MAN DIFF ORDERED WBC (4.8 - 10.8 /CUMM) 17.3 H RBC (4.20 - 5.40 /CUMM) 3.81 L Hgb (12.0 - 16.0 G/DL) 12.1 Hct (37 - 47 %) 37.3 MCV (81.0 - 99.0 FL) 98.0 MCH (27.0 - 31.0 PG) 31.8 H RDW (11.5 - 14.5 %) 15.4 H Plt Count (130 - 400 /CUMM) 186 MPV (7.4 - 10.4 FL) 9.5 Gran % (42.2 - 75.2 %) 91.3 H Lymphocytes % (20.5 - 51.1 %) 4.1 L Monocytes % (1.7 - 9.3 %) 4.6 Eosinophils % (0 - 5 %) 0 Basophils % (0.0 - 2.0 %) 0 L Absolute Granulocytes (1.4 - 6.5 /CUMM) 15.8 H Segmented Neutrophils (42.2 - 75.2 %) 85 H Band Neutrophils (0.0 - 5.0 %) 7 H Absolute Lymphocytes (1.2 - 3.4 /CUMM) 0.7 L Lymphocytes (20.5 - 51.1 %) 3 L Monocytes (1.7 - 9.3 %) 5 Absolute Monocytes (0.10 - 0.60 /CUMM) 0.8 H Absolute Eosinophils (0.0 - 0.7 /CUMM) 0 Absolute Basophils (0.0 - 0.2 /CUMM) 0 Platelet Estimate (ADEQUATE) ADEQUATE Anisocytosis 1+ Macrocytic Cells FEW PUBS MCHC (33.0 - 37.0 G/DL) 32.4 L 11/23 11/23 11/23 [id number] Chemistry Sodium Cancelled Potassium Cancelled Chloride Cancelled Carbon Dioxide Cancelled Anion Gap Cancelled BUN Cancelled Creatinine Cancelled Glucose Cancelled Lactic Acid (0.7 - 2.1 mmol/L) 2.3 H Calcium Cancelled Phosphorus Cancelled Magnesium Cancelled Total Bilirubin Cancelled AST Cancelled ALT Cancelled Alkaline Phosphatase Cancelled Albumin Cancelled Urines Urinalysis LIGHT H Urine Color (YEL,AMB,STR) YEL Urine Clarity (CLEAR) CLEAR Urine pH (5.0 - 8.0) 7.0 Ur Specific [place] (1.001 - 1.035) 1.010 Urine Protein (NEG,<30 MG/DL) 30 H Urine Ketones (NEG) NEG Urine Nitrite (NEG) NEG Urine Bilirubin (NEG) NEG Urine Urobilinogen (0.1 - 1.0 EU/dl) 0.2 Ur Leukocyte Esterase (NEG) NEG Ur Microscopic SEDIMENT EXAMINED Urine RBC (0 - 5 /HPF) 1-3 Ur Epithelial Cells (NONE,FEW) FEW Hyaline Casts (0/LPF) RARE H Urine Hemoglobin (NEG) NEG Urine Glucose (N MG/DL) NEG 11/23 11/23 11/23 1950 1657 1614 Chemistry Sodium (137 - 145 mmol/L) 135 L Potassium (3.5 - 5.1 mmol/L) 4.5 Chloride (98 - 107 mmol/L) 98 Carbon Dioxide (22 - 30 mmol/L) 28 Anion Gap (5 - 16) 9 BUN (7 - 17 mg/dL) 34 H Creatinine (0.5 - 1.0 mg/dL) 1.1 H Estimated GFR (>60 ml/min) 47 L Glucose (65 - 99 mg/dL) 130 H Lactic Acid (0.7 - 2.1 mmol/L) 3.1 H Calcium (8.4 - 10.2 mg/dL) 7.9 L Phosphorus (2.5 - 4.5 mg/dL) 4.2 Magnesium (1.6 - 2.3 mg/dL) 3.6 H Total Bilirubin (0.2 - 1.3 mg/dL) 1.9 H AST (14 - 36 U/L) 3093 H ALT (9 - 52 U/L) 1310 H Alkaline Phosphatase (<127 U/L) 284 H Troponin I (< 0.11 ng/ml) 0.09 Albumin (3.5 - 5.0 g/dL) 3.3 L TSH Cancelled 11/23 1237 Chemistry Sodium (137 - 145 mmol/L) 135 L Potassium (3.5 - 5.1 mmol/L) 4.3 Chloride (98 - 107 mmol/L) 95 L Carbon Dioxide (22 - 30 mmol/L) 29 Anion Gap (5 - 16) 11 BUN (7 - 17 mg/dL) 35 H Creatinine (0.5 - 1.0 mg/dL) 1.0 Estimated GFR (>60 ml/min) 53 L BUN/Creatinine Ratio (7 - 25 %) 35.0 H Glucose (65 - 99 mg/dL) 195 H Lactic Acid (0.7 - 2.1 mmol/L) 3.8 H Calcium (8.4 - 10.2 mg/dL) 8.7 Magnesium (1.6 - 2.3 mg/dL) 3.6 H Total Bilirubin (0.2 - 1.3 mg/dL) 1.1 AST (14 - 36 U/L) 463 H ALT (9 - 52 U/L) 163 H Alkaline Phosphatase (<127 U/L) 281 H Troponin I (< 0.11 ng/ml) 0.04 Yzm-S-Sxrairgykce Pept (<125 pg/mL) 2160 H Total Protein (6.3 - 8.2 g/dL) 6.7 Albumin (3.5 - 5.0 g/dL) 4.0 Globulin (1.9 - 4.2 gm/dL) 2.7 Albumin/Globulin Ratio (1.1 - 2.2 %) 1.5 Triglycerides (<150 mg/dL) 143 Cholesterol (<200 MG/DL) 143 LDL Cholesterol, Calc (65 - 129 mg/dL) 16 L HDL Cholesterol (40 - 60 mg/dL) 99 H Cholesterol/HDL Ratio (0.00 - 4.23 %) 1 Lipase (23 - 300 U/L) > 97642 H TSH (0.270 - 4.200 uIU/mL) 5.000 H Thyroxine (T4) (4.5 - 10.9 ug/dL) 12.3 H Coagulation PT (9.4 - 12.5 SEC) 13.7 H INR (0.90 - 1.19) 1.31 H Hematology CBC w Diff NO MAN DIFF REQ WBC (4.8 - 10.8 /CUMM) 14.2 H RBC (4.20 - 5.40 /CUMM) 4.37 Hgb (12.0 - 16.0 G/DL) 14.0 Hct (37 - 47 %) 43.5 MCV (81.0 - 99.0 FL) 99.6 H MCH (27.0 - 31.0 PG) 32.1 H RDW (11.5 - 14.5 %) 16.0 H Plt Count (130 - 400 /CUMM) 216 MPV (7.4 - 10.4 FL) 10.0 Gran % (42.2 - 75.2 %) 77.7 H Lymphocytes % (20.5 - 51.1 %) 15.4 L Monocytes % (1.7 - 9.3 %) 5.3 Eosinophils % (0 - 5 %) 1.4 Basophils % (0.0 - 2.0 %) 0.2 Absolute Granulocytes (1.4 - 6.5 /CUMM) 11.0 H Absolute Lymphocytes (1.2 - 3.4 /CUMM) 2.2 Absolute Monocytes (0.10 - 0.60 /CUMM) 0.8 H Absolute Eosinophils (0.0 - 0.7 /CUMM) 0.2 Absolute Basophils (0.0 - 0.2 /CUMM) 0 PUBS MCHC (33.0 - 37.0 G/DL) 32.2 L Serology Lyme Disease Antibody (RATIO) 0.15 Imaging/Other Studies: MRCP with biliary dilatation, without evidence of choledocholithiasis.
[2016-11-25 22:03] VITALS: BP 134/78
[2016-11-25 23:47] VITALS: BP 138/70
[2016-11-26 07:51] VITALS: BP 150/80
[2016-11-26 07:55] LABS: ABSOLUTE BASOPHIL COUNT 0 /CUMM (0.0-0.2); ABSOLUTE EOSINOPHIL COUNT 0 /CUMM (0.0-0.7); ABSOLUTE GRANULOCYTE CT 16.7 /CUMM (1.4-6.5); ABSOLUTE LYMPH COUNT 0.8 /CUMM (1.2-3.4); ABSOLUTE MONOCYTE COUNT 1.6 /CUMM (0.10-0.60); BASOPHIL % 0 % (0.0-2.0); EOSINOPHIL % 0 % (0-5); HEMATOCRIT 37.6 % (37-47); MEAN CORPUSCULAR HGB 32.3 PG (27.0-31.0); MEAN CORPUSCULAR HGB CONC 32.4 G/DL (33.0-37.0); MEAN CORPUSCULAR VOLUME 99.7 FL (81.0-99.0); MEAN PLATELET VOLUME 10.2 FL (7.4-10.4); PLATELET COUNT 169 /CUMM (130-400); RBC DISTRIBUTION WIDTH 16.3 % (11.5-14.5); RED BLOOD CELL CT 3.78 /CUMM (4.20-5.40); WHITE BLOOD CELL COUNT 19.1 /CUMM (4.8-10.8)
--- NOTE | 2016-11-26 09:07 | PN- Housestaff ---
Subjective Follow-up For: Acute gallstone hepatitis Tele-Events Since Last Visit: A flutter, heart rate between 89-94, occasional PVCs. Subjective: Patient seen and examined this morning. She was lying in bed in no acute distress. Denies any nausea, vomiting, abdominal pain, remains afebrile, white count improving, no other complaints. Review of Systems Constitutional: Denies: chills, fever. Cardiovascular: Denies: chest pain, palpitations. Respiratory: Denies: cough, short of breath, sputum production. Gastrointestinal: Denies: abdominal pain, constipation, diarrhea, nausea, vomiting. Objective Last 24 Hrs of Vital Signs/I&O Vital Signs Date Time Temp Pulse Resp B/P B/P Pulse O2 O2 Flow FiO2 Mean Ox Delivery Rate 11/26 1201 Nasal 3.0L Cannula 11/26 0800 Nasal 3.0L Cannula 11/26 0751 97.9 66 20 150/80 91 Nasal Cannula 11/26 0000 94 Nasal 3.0L Cannula 11/25 2347 98.9 90 20 138/70 94 Nasal 3.0L Cannula 11/25 2203 134/78 11/25 1708 99.2 91 17 179/80 94 Nasal 2.5L Cannula 11/25 1600 Nasal 3.0L Cannula Intake & Output 11/26 1600 11/26 0800 11/26 0000 Intake Total 500 900 Output Total 350 300 Balance 150 600 Intake, IV 500 660 Intake, Oral 0 240 Number 0 Bowel Movements Output, Urine 350 300 Physical Exam General Appearance: Alert, Oriented X3, Cooperative, No Acute Distress Cardiovascular: Regular Rate, Normal S1, Normal S2, No Murmurs Lungs: Clear to Auscultation, Normal Air Movement Abdomen: Normal Bowel Sounds, Soft, No Tenderness Extremities: No Clubbing, No Cyanosis, No Edema Assessment/Plan Assessment: Ms. Perez is a pleasant 86 year old female with PMH type 2 diabetes mellitus, HTN, HLD, congestive heart failure with reduced ejection fraction (35- 40%), CAD, TX s/p CABG, atrial fibrillation on xarelto, GERD, GI bleed and gout who presented to [place] due to sudden-onset, 03/31, stabbing epigastric pain. She was initially admitted to ICU for management of acute pancreatitis, Atrial fibrillation with slow ventricular response. She has been downgraded to telemetry floor on 11/24. We are currently monitoring her for the following condition 1. Acute pancreatitis: Patient presented with acute epigastric pain, [place] 2 score = 10, she was kept nothing by mouth, IV hydration, IV pain control. MRCP showed evidence of extrahepatic been very dilatation without evidence of any gallstones. She was started on IV Unasyn, IV PPI, LFTs are improving. Currently waiting for GI input for possibility of ERCP in near future. * Patient on clear liquid diet * We'll continue Unasyn, patient afebrile, white count improving * Xeralto on hold pending GI input. * Patient to see on IV heparin pending above. 2. Atrial fibrillation with slow ventricular response * Currently on IV heparin * Xaralto currently on hold pending above DNR/DNI Diet: NPO DVTP: ALPS Pain: Severe pain pathway Problem List: 1. Atrial fibrillation with slow ventricular response 2. Pancreatitis, acute Pain Ratin Pain Location: None Pain Goal: Remain pain free Pain Plan: Mild pain pathway Tomorrow's Labs & Rationales: LFTs and CBC to monitor for white count.
[2016-11-26 09:16] LABS: GRANULOCYTE % 87.5 % (42.2-75.2)
--- NOTE | 2016-11-26 11:49 | PN- Cardiology ---
Subjective Subjective: Patient sitting in her chair resting comfortably. On nasal cannula but denies any dyspnea or recurrent abdominal pain. Objective Vital Signs and I&Os Vital Signs Date Time Temp Pulse Resp B/P B/P Pulse O2 O2 Flow FiO2 Mean Ox Delivery Rate 11/26 0800 Nasal 3.0L Cannula 11/26 0751 97.9 66 20 150/80 91 Nasal Cannula / 0000 94 Nasal 3.0L Cannula 11/25 2347 98.9 90 20 138/70 94 Nasal 3.0L Cannula 11/25 2203 134/78 11/25 1708 99.2 91 17 179/80 94 Nasal 2.5L Cannula 11/25 1600 Nasal 3.0L Cannula 11/25 1405 97.9 89 20 160/70 95 Intake & Output 11/26 1600 11/26 0800 11/26 0000 11/25 1600 11/25 0800 11/25 0000 Intake Total 500 900 635.8 555.2 676.7 Output Total 350 300 800 200 400 Balance 150 600 -164.2 355.2 276.7 Intake, IV 500 660 515.8 555.2 676.7 Intake, Oral 0 240 120 0 0 Number 0 0 Bowel Movements Output, Urine 350 300 800 200 400 Patient 150 lb Weight Physical Exam: General: no apparent distress. Alert. On NC. Eyes: No obvious scleral icterus. HEENT: No jugular venous distention or abnormal jugular venous pulsations. Cardiovascular: Normal intensity S1/S2. Irregular. Respiratory: Lungs clear to auscultation bilaterally. Abdomen: no guarding Musculoskeletal: No clubbing or cyanosis noted, no edema Skin: Warm Neurologic: No gross focal deficits noted. Current Medications: Current Medications Sig/Chinyere Start time Last Medication Dose Route Stop Time Status Admin Ampicillin Sodium/ 3,000 MG Q6H / 2200 AC / Sulbactam Sodium IV 1011 Sodium Chloride 100 ML Atropine Sulfate 1 MG ONE PRN / 1700 AC IV Dextrose/Sodium 1,000 ML Q20H /05 1130 AC / Chloride IV 1452 Heparin Sodium 25,000 UNIT Q24H /07 1000 AC / (Porcine) IV 1027 Sodium Chloride 500 ML Insulin Aspart 0 TIDAC 11/26 0515 AC SC Insulin Human Regular 2 UNITS .STK-MED ONE 11/25 1243 DC IV 11/25 1244 Insulin Human Regular 0 Q6 11/23 1800 DC 11/25 SC 1716 Lorazepam 0.5 MG AT BEDTIME PRN 11/25 2230 AC 11/25 PO 12/02 2228 2222 Lorazepam 0.25 MG ONCE PRN 11/24 2030 DC 11/24 IV 2202 Morphine Sulfate 1 MG Q4P PRN 11/23 1700 AC 11/25 IV 0322 Pantoprazole Sodium 40 MG DAILY 11/24 1000 AC 11/26 IV 1008 Patient Medication 1 ED .STK-MED ONE 11/25 1345 DC Teaching ED 11/25 1346 Potassium Chloride 40 MEQ ONCE ONE 11/26 1015 DC 11/26 PO 11/26 1016 1024 Prochlorperazine 5 MG Q4P PRN 11/23 1915 IV Rivaroxaban 15 MG DAILY 11/25 1115 DC 11/25 PO 1247 Results Last 48 Hrs of Labs/Mics: Laboratory Tests 11/26/16 0646: Anion Gap 8, Estimated GFR > 60, BUN/Creatinine Ratio 30.0 H, Total Bilirubin 1.7 H, Direct Bilirubin 0.9 H, AST 135 H, ALT 345 H, Alkaline Phosphatase 182 H, Total Protein 5.3 L, Albumin 2.8 L, CBC w Diff NO MAN DIFF REQ, RBC 3.78 L, MCV 99.7 H, MCH 32.3 H, RDW 16.3 H, MPV 10.2, Gran % 87.5 H, Lymphocytes % 4.2 L, Monocytes % 8.3, Eosinophils % 0, Basophils % 0 L, Absolute Granulocytes 16.7 H, Absolute Lymphocytes 0.8 L, Absolute Monocytes 1.6 H, Absolute Eosinophils 0, Absolute Basophils 0, PUBS MCHC 32.4 L 11/25/16 0825: TSH Cancelled, Free T4 Cancelled 11/25/16 0825: Anion Gap 7, Estimated GFR 53 L, BUN/Creatinine Ratio 29.0 H, Total Bilirubin 1.8 H, Direct Bilirubin 1.1 H, AST 456 H, ALT 528 H, Alkaline Phosphatase 224 H, Total Protein 5.5 L, Albumin 2.8 L, TSH 2.080, Free T4 1.33, APTT 73 H, CBC w Diff NO MAN DIFF REQ, RBC 4.02 L, MCV 99.4 H, MCH 32.2 H, RDW 16.0 H, MPV 10.5 H, Gran % 90.0 H, Lymphocytes % 3.9 L, Monocytes % 6.1, Eosinophils % 0, Basophils % 0 L, Absolute Granulocytes 20.7 H, Absolute Lymphocytes 0.9 L, Absolute Monocytes 1.4 H, Absolute Eosinophils 0, Absolute Basophils 0, PUBS MCHC 32.4 L 11/24/16 2340: APTT 116 *H 11/24/16 1430: APTT > 120 *H Recent Imaging Studies: Telemetry tracings were personally reviewed and show atrial flutter with controlled ventricular response rate Echo: CONCLUSIONS Left ventricular cavity size normal. Left ventricular wall thickness mildly increased. Moderate to severe septal/apical hypokinesis. Left ventricular ejection fraction is estimated at 40 %. Normal right ventricular size. Mildly reduced right ventricular global systolic function. Mild right atrial dilatation. Mild to moderate left atrial dilatation. Neda-jp-snwgebyw mitral regurgitation. Djjw-of-yqtpfxgk tricuspid regurgitation. Right ventricular systolic pressure estimated at > 55 mmHg. Assessment/Plan Assessment/Plan 1. Acute gallstone pancreatitis 2. History of coronary artery disease, (bypass surgery in 1994 with a MARIN to the LAD, vein grafts to the diagonal, PDA and distal RCA) 3. Known atrial flutter with slow ventricular response rate, on Xarelto 4. Ischemic cardiomyopathy, chronic CHF, EF now 40%, with pulmonary HTN 5. Diabetes/hypertension/hyperlipidemia Echocardiogram as above shows ejection fraction of 40% with pulmonary hypertension and mild right ventricular dysfunction. Patient is not complaining of any dyspnea but remains on nasal cannula oxygen. If unable to wean off nasal cannula oxygen I would recommend obtaining a repeat chest x-ray and considering resuming her home diuretics. She did receive 1 dose of Xarelto yesterday which is now being held again in anticipation of possible ERCP. She is back on heparin infusion. Patient remains hemodynamically stable with no severe bradycardia on telemetry and urgent pacemaker is not indicated at this time. She is not a candidate for beta-jada therapy but her Darrick inhibitor should be resumed given her HTN/cardiomyopathy. Tye Crandall MD [facility] Continue telemetry? Yes
--- NOTE | 2016-11-26 13:02 | PN- Att Addend ---
Attending MD Review Statement Attending Statement Attending MD Statement: examined this patient, discuss w/resident/PA/NURSING COORDINATOR, agreed w/resident/PA/NURSING COORDINATOR, discussed with family, reviewed EMR data (avail), discussed w/ nursing, discussed w/case mgmt Attending Assessment/Plan: Laboratory Tests 11/26/16 0646: Anion Gap 8, Estimated GFR > 60, BUN/Creatinine Ratio 30.0 H, Total Bilirubin 1.7 H, Direct Bilirubin 0.9 H, AST 135 H, ALT 345 H, Alkaline Phosphatase 182 H, Total Protein 5.3 L, Albumin 2.8 L, CBC w Diff NO MAN DIFF REQ, RBC 3.78 L, MCV 99.7 H, MCH 32.3 H, RDW 16.3 H, MPV 10.2, Gran % 87.5 H, Lymphocytes % 4.2 L, Monocytes % 8.3, Eosinophils % 0, Basophils % 0 L, Absolute Granulocytes 16.7 H, Absolute Lymphocytes 0.8 L, Absolute Monocytes 1.6 H, Absolute Eosinophils 0, Absolute Basophils 0, PUBS MCHC 32.4 L Vital Signs Date Time Temp Pulse Resp B/P B/P Pulse O2 O2 Flow FiO2 Mean Ox Delivery Rate 11/26 1201 Nasal 3.0L Cannula 11/26 0800 Nasal 3.0L Cannula 11/26 0751 97.9 66 20 150/80 91 Nasal Cannula 11/26 0000 94 Nasal 3.0L Cannula 11/25 2347 98.9 90 20 138/70 94 Nasal 3.0L Cannula 11/25 2203 134/78 11/25 1708 99.2 91 17 179/80 94 Nasal 2.5L Cannula 11/25 1600 Nasal 3.0L Cannula 11/25 1405 97.9 89 20 160/70 95 Patient seen and examined at bedside. Discussed with patient as well as patient 's daughter Susan at bedside the care plan. 86-year-old female admitted with acute pancreatitis secondary to gallstones. He was initially admitted to ICU and then transferred out of ICU on 11/24. MRCP done shows extrahepatic biliary dilatation but no filling defects suggestive of CBD stones. Again shows the presence of gallstones but no acute cholecystitis. Pt got one dose of Xarelto yesterday morning. Xarelto has half life of about 12 hrs in elderly and pt should be ok to under go procedure tomorrow morning. Will cont on heparin drip. Pt and her daughter want ERCP done. Leukocytosis- improved now , cont to monitor. NO diarrhea or fever. Cont on unasyn for now. Afib- cont on heparin drip for now. Will transition to Xarelto at time of discharge.
--- NOTE | 2016-11-26 15:58 | PN- Gastroenterology ---
Assessment/Plan Assessment/Recommendations: Acute gallstone pancreatitis, likely secondary to choledocholithiasis. No retained CBD stones on MRCP. Liver enzymes/bilirubin continue to slowly improve. Improvement in pain and tenderness. Mild improvement in leukocytosis. Appreciate cardiology follow-up. Recommendations * Advance to full liquid diet * Leukocytosis: Attempt to determine etiology. In this context, would benefit from CT scan with pancreatic protocol. * Parenteral analgesia and antiemetics as needed * Continue intravenous heparin. Continue to hold Xarelto. * Follow-up LFTs and CBC daily * Continue antibiotics * PPI * Anticipate therapeutic ERCP on Thursday Subjective Subjective: Denies abdominal pain, nausea. Tolerating clear liquids. Still somewhat short of breath. No fever or chills. Objective Vital Signs and I&Os Vital Signs Date Time Temp Pulse Resp B/P B/P Pulse O2 O2 Flow FiO2 Mean Ox Delivery Rate 11/26 1201 Nasal 3.0L Cannula 11/26 0800 Nasal 3.0L Cannula 11/26 0751 97.9 66 20 150/80 91 Nasal Cannula 11/26 0000 94 Nasal 3.0L Cannula 11/25 2347 98.9 90 20 138/70 94 Nasal 3.0L Cannula 11/25 2203 134/78 11/25 1708 99.2 91 17 179/80 94 Nasal 2.5L Cannula 11/25 1600 Nasal 3.0L Cannula Intake & Output 11/26 1600 11/26 0400 11/25 1600 11/25 0400 11/24 1600 11/24 0400 Intake Total 457 692 7341.0 676.7 1278 752 Output Total 379 043 9384 400 665 330 Balance 150 600 191.0 276.7 613 422 Intake, IV 718 652 6170.0 676.7 1278 752 Intake, Oral 0 240 120 0 0 Number 0 0 0 Bowel Movements Output, Urine 599 811 2507 400 665 330 Patient 150 lb 150 lb Weight Weight Bed scale Measurement Method Physical Exam: Sclera anicteric. Abdomen nondistended, with normal bowel sounds; mild tenderness to palpation. Current Medications: Current Medications Sig/Chinyere Start time Last Medication Dose Route Stop Time Status Admin Ampicillin Sodium/ 3,000 MG Q6H 11/23 2200 AC / Sulbactam Sodium IV 1011 Sodium Chloride 100 ML Atropine Sulfate 1 MG ONE PRN 11/23 1700 AC IV Dextrose/Sodium 1,000 ML Q20H 11/24 1130 AC 11/25 Chloride IV 1452 Heparin Sodium 25,000 UNIT Q24H 11/26 1000 AC 11/26 (Porcine) IV 1027 Sodium Chloride 500 ML Insulin Aspart 0 TIDAC 11/26 0515 AC 11/26 SC 1212 Insulin Human Regular 0 Q6 11/23 1800 DC 11/25 SC 1716 Lorazepam 0.5 MG AT BEDTIME PRN 11/25 2230 AC 11/25 PO 12/02 2228 222 Lorazepam 0.25 MG ONCE PRN 11/24 2030 DC 11/24 IV 2202 Morphine Sulfate 1 MG Q4P PRN 11/23 1700 AC 11/25 IV 0322 Pantoprazole Sodium 40 MG DAILY 11/24 1000 AC 11/26 IV 1008 Potassium Chloride 40 MEQ ONCE ONE 11/26 1015 DC 11/26 PO 11/26 1016 1024 Prochlorperazine 5 MG Q4P PRN 11/23 1915 AC IV Results Pertinent Lab Results: Laboratory Tests 11/26 11/25 0646 0825 Chemistry Sodium (137 - 145 mmol/L) 140 Potassium (3.5 - 5.1 mmol/L) 3.5 Chloride (98 - 107 mmol/L) 106 Carbon Dioxide (22 - 30 mmol/L) 26 Anion Gap (5 - 16) 8 BUN (7 - 17 mg/dL) 24 H Creatinine (0.5 - 1.0 mg/dL) 0.8 Estimated GFR (>60 ml/min) > 60 BUN/Creatinine Ratio (7 - 25 %) 30.0 H Total Bilirubin (0.2 - 1.3 mg/dL) 1.7 H Direct Bilirubin (< 0.4 mg/dL) 0.9 H AST (14 - 36 U/L) 135 H ALT (9 - 52 U/L) 345 H Alkaline Phosphatase (<127 U/L) 182 H Total Protein (6.3 - 8.2 g/dL) 5.3 L Albumin (3.5 - 5.0 g/dL) 2.8 L TSH Cancelled Free T4 Cancelled Hematology CBC w Diff NO MAN DIFF REQ WBC (4.8 - 10.8 /CUMM) 19.1 H RBC (4.20 - 5.40 /CUMM) 3.78 L Hgb (12.0 - 16.0 G/DL) 12.2 Hct (37 - 47 %) 37.6 MCV (81.0 - 99.0 FL) 99.7 H MCH (27.0 - 31.0 PG) 32.3 H RDW (11.5 - 14.5 %) 16.3 H Plt Count (130 - 400 /CUMM) 169 MPV (7.4 - 10.4 FL) 10.2 Gran % (42.2 - 75.2 %) 87.5 H Lymphocytes % (20.5 - 51.1 %) 4.2 L Monocytes % (1.7 - 9.3 %) 8.3 Eosinophils % (0 - 5 %) 0 Basophils % (0.0 - 2.0 %) 0 L Absolute Granulocytes (1.4 - 6.5 /CUMM) 16.7 H Absolute Lymphocytes (1.2 - 3.4 /CUMM) 0.8 L Absolute Monocytes (0.10 - 0.60 /CUMM) 1.6 H Absolute Eosinophils (0.0 - 0.7 /CUMM) 0 Absolute Basophils (0.0 - 0.2 /CUMM) 0 PUBS MCHC (33.0 - 37.0 G/DL) 32.4 L 06/06 06/05 06/05 0825 2340 1430 Chemistry Sodium (137 - 145 mmol/L) 140 Potassium (3.5 - 5.1 mmol/L) 4.0 Chloride (98 - 107 mmol/L) 106 Carbon Dioxide (22 - 30 mmol/L) 27 Anion Gap (5 - 16) 7 BUN (7 - 17 mg/dL) 29 H Creatinine (0.5 - 1.0 mg/dL) 1.0 Estimated GFR (>60 ml/min) 53 L BUN/Creatinine Ratio (7 - 25 %) 29.0 H Total Bilirubin (0.2 - 1.3 mg/dL) 1.8 H Direct Bilirubin (< 0.4 mg/dL) 1.1 H AST (14 - 36 U/L) 456 H ALT (9 - 52 U/L) 528 H Alkaline Phosphatase (<127 U/L) 224 H Total Protein (6.3 - 8.2 g/dL) 5.5 L Albumin (3.5 - 5.0 g/dL) 2.8 L TSH (0.270 - 4.200 uIU/mL) 2.080 Free T4 (0.85 - 1.93 ng/dL) 1.33 Coagulation APTT (25 - 37 SEC) 73 H 116 *H > 120 *H Hematology CBC w Diff NO MAN DIFF REQ WBC (4.8 - 10.8 /CUMM) 23.0 H RBC (4.20 - 5.40 /CUMM) 4.02 L Hgb (12.0 - 16.0 G/DL) 12.9 Hct (37 - 47 %) 40.0 MCV (81.0 - 99.0 FL) 99.4 H MCH (27.0 - 31.0 PG) 32.2 H RDW (11.5 - 14.5 %) 16.0 H Plt Count (130 - 400 /CUMM) 185 MPV (7.4 - 10.4 FL) 10.5 H Gran % (42.2 - 75.2 %) 90.0 H Lymphocytes % (20.5 - 51.1 %) 3.9 L Monocytes % (1.7 - 9.3 %) 6.1 Eosinophils % (0 - 5 %) 0 Basophils % (0.0 - 2.0 %) 0 L Absolute Granulocytes (1.4 - 6.5 /CUMM) 20.7 H Absolute Lymphocytes (1.2 - 3.4 /CUMM) 0.9 L Absolute Monocytes (0.10 - 0.60 /CUMM) 1.4 H Absolute Eosinophils (0.0 - 0.7 /CUMM) 0 Absolute Basophils (0.0 - 0.2 /CUMM) 0 PUBS MCHC (33.0 - 37.0 G/DL) 32.4 L 11/24 11/24 11/24 0545 0500 0440 Chemistry Sodium (137 - 145 mmol/L) 137 Potassium (3.5 - 5.1 mmol/L) 4.6 Chloride (98 - 107 mmol/L) 99 Carbon Dioxide (22 - 30 mmol/L) 30 Anion Gap (5 - 16) 8 BUN (7 - 17 mg/dL) 36 H Creatinine (0.5 - 1.0 mg/dL) 1.1 H Estimated GFR (>60 ml/min) 47 L Glucose (65 - 99 mg/dL) 122 H Lactic Acid (0.7 - 2.1 mmol/L) 1.9 Calcium (8.4 - 10.2 mg/dL) 7.7 L Phosphorus (2.5 - 4.5 mg/dL) 4.2 Magnesium (1.6 - 2.3 mg/dL) 3.9 H Total Bilirubin (0.2 - 1.3 mg/dL) 2.1 H AST (14 - 36 U/L) 1878 H ALT (9 - 52 U/L) 933 H Albumin (3.5 - 5.0 g/dL) 3.2 L Coagulation PT (9.4 - 12.5 SEC) 11.5 INR (0.90 - 1.19) 1.10 Hematology CBC w Diff MAN DIFF ORDERED WBC (4.8 - 10.8 /CUMM) 18.1 H RBC (4.20 - 5.40 /CUMM) 3.93 L Hgb (12.0 - 16.0 G/DL) 12.6 Hct (37 - 47 %) 39.1 MCV (81.0 - 99.0 FL) 99.6 H MCH (27.0 - 31.0 PG) 32.2 H RDW (11.5 - 14.5 %) 15.9 H Plt Count (130 - 400 /CUMM) 195 MPV (7.4 - 10.4 FL) 10.2 Gran % (42.2 - 75.2 %) 89.9 H Lymphocytes % (20.5 - 51.1 %) 5.0 L Monocytes % (1.7 - 9.3 %) 5.1 Eosinophils % (0 - 5 %) 0 Basophils % (0.0 - 2.0 %) 0 L Absolute Granulocytes (1.4 - 6.5 /CUMM) 16.3 H Segmented Neutrophils (42.2 - 75.2 %) 84 H Band Neutrophils (0.0 - 5.0 %) 7 H Absolute Lymphocytes (1.2 - 3.4 /CUMM) 0.9 L Lymphocytes (20.5 - 51.1 %) 6 L Monocytes (1.7 - 9.3 %) 3 Absolute Monocytes (0.10 - 0.60 /CUMM) 0.9 H Absolute Eosinophils (0.0 - 0.7 /CUMM) 0 Absolute Basophils (0.0 - 0.2 /CUMM) 0 Platelet Estimate (ADEQUATE) ADEQUATE PUBS MCHC (33.0 - 37.0 G/DL) 32.3 L Urines Ur Random Creatinine (mg/dL) 92.1 Ur Random Sodium (30 - 90 mmol/L) < 5 L Ur Random Potassium (mmol/L) 42.7 Fraction Sodium Excret (<1% %) 11/24 11/24 11/24 0347 0045 0045 Chemistry Sodium (137 - 145 mmol/L) 137 Potassium (3.5 - 5.1 mmol/L) 4.7 Chloride (98 - 107 mmol/L) 99 Carbon Dioxide (22 - 30 mmol/L) 29 Anion Gap (5 - 16) 9 BUN (7 - 17 mg/dL) 34 H Creatinine (0.5 - 1.0 mg/dL) 1.1 H Estimated GFR (>60 ml/min) 47 L Glucose (65 - 99 mg/dL) 161 H Lactic Acid (0.7 - 2.1 mmol/L) 2.6 H Calcium (8.4 - 10.2 mg/dL) 7.8 L Phosphorus (2.5 - 4.5 mg/dL) 4.1 Magnesium (1.6 - 2.3 mg/dL) 3.8 H Total Bilirubin (0.2 - 1.3 mg/dL) 1.9 H Direct Bilirubin (< 0.4 mg/dL) 1.4 H AST (14 - 36 U/L) 2398 H ALT (9 - 52 U/L) 1240 H Troponin I (< 0.11 ng/ml) 0.09 Albumin (3.5 - 5.0 g/dL) 3.3 L Amylase (30 - 110 U/L) 1618 H Hematology CBC w Diff MAN DIFF ORDERED WBC (4.8 - 10.8 /CUMM) 17.3 H RBC (4.20 - 5.40 /CUMM) 3.81 L Hgb (12.0 - 16.0 G/DL) 12.1 Hct (37 - 47 %) 37.3 MCV (81.0 - 99.0 FL) 98.0 MCH (27.0 - 31.0 PG) 31.8 H RDW (11.5 - 14.5 %) 15.4 H Plt Count (130 - 400 /CUMM) 186 MPV (7.4 - 10.4 FL) 9.5 Gran % (42.2 - 75.2 %) 91.3 H Lymphocytes % (20.5 - 51.1 %) 4.1 L Monocytes % (1.7 - 9.3 %) 4.6 Eosinophils % (0 - 5 %) 0 Basophils % (0.0 - 2.0 %) 0 L Absolute Granulocytes (1.4 - 6.5 /CUMM) 15.8 H Segmented Neutrophils (42.2 - 75.2 %) 85 H Band Neutrophils (0.0 - 5.0 %) 7 H Absolute Lymphocytes (1.2 - 3.4 /CUMM) 0.7 L Lymphocytes (20.5 - 51.1 %) 3 L Monocytes (1.7 - 9.3 %) 5 Absolute Monocytes (0.10 - 0.60 /CUMM) 0.8 H Absolute Eosinophils (0.0 - 0.7 /CUMM) 0 Absolute Basophils (0.0 - 0.2 /CUMM) 0 Platelet Estimate (ADEQUATE) ADEQUATE Anisocytosis 1+ Macrocytic Cells FEW PUBS MCHC (33.0 - 37.0 G/DL) 32.4 L Miscellaneous Ref Lab Test Result Pending 11/24 11/23 0030 2200 Chemistry Sodium Cancelled Potassium Cancelled Chloride Cancelled Carbon Dioxide Cancelled Anion Gap Cancelled BUN Cancelled Creatinine Cancelled Glucose Cancelled Calcium Cancelled Phosphorus Cancelled Magnesium Cancelled Total Bilirubin Cancelled AST Cancelled ALT Cancelled Alkaline Phosphatase Cancelled Troponin I Cancelled Albumin Cancelled 11/23 1950 1950 Chemistry Sodium (137 - 145 mmol/L) 135 L Potassium (3.5 - 5.1 mmol/L) 4.5 Chloride (98 - 107 mmol/L) 98 Carbon Dioxide (22 - 30 mmol/L) 28 Anion Gap (5 - 16) 9 BUN (7 - 17 mg/dL) 34 H Creatinine (0.5 - 1.0 mg/dL) 1.1 H Estimated GFR (>60 ml/min) 47 L Glucose (65 - 99 mg/dL) 130 H Lactic Acid (0.7 - 2.1 mmol/L) 2.3 H Calcium (8.4 - 10.2 mg/dL) 7.9 L Phosphorus (2.5 - 4.5 mg/dL) 4.2 Magnesium (1.6 - 2.3 mg/dL) 3.6 H Total Bilirubin (0.2 - 1.3 mg/dL) 1.9 H AST (14 - 36 U/L) 3093 H ALT (9 - 52 U/L) 1310 H Alkaline Phosphatase (<127 U/L) 284 H Troponin I (< 0.11 ng/ml) 0.09 Albumin (3.5 - 5.0 g/dL) 3.3 L Urines Urinalysis LIGHT H Urine Color (YEL,AMB,STR) YEL Urine Clarity (CLEAR) CLEAR Urine pH (5.0 - 8.0) 7.0 Ur Specific [place] (1.001 - 1.035) 1.010 Urine Protein (NEG,<30 MG/DL) 30 H Urine Ketones (NEG) NEG Urine Nitrite (NEG) NEG Urine Bilirubin (NEG) NEG Urine Urobilinogen (0.1 - 1.0 EU/dl) 0.2 Ur Leukocyte Esterase (NEG) NEG Ur Microscopic SEDIMENT EXAMINED Urine RBC (0 - 5 /HPF) 1-3 Ur Epithelial Cells (NONE,FEW) FEW Hyaline Casts (0/LPF) RARE H Urine Hemoglobin (NEG) NEG Urine Glucose (N MG/DL) NEG 11/23 11/23 1657 1614 Chemistry Lactic Acid (0.7 - 2.1 mmol/L) 3.1 H TSH Cancelled
[2016-11-26 16:00] VITALS: BP 148/70
[2016-11-26 18:09] LABS: PTT 74 SEC (25-37)
[2016-11-26 23:46] VITALS: BP 148/78
--- NOTE | 2016-11-27 07:09 | PN- Housestaff ---
Subjective Follow-up For: Acute gallstone pancreatitis Tele-Events Since Last Visit: Atrial flutter heart rate ranging in 90s, with 2 episodes of heart rate dipping down to high 40s. Subjective: Patient seen and examined this morning. He was lying comfortably in bed in no acute distress. Denies any nausea, vomiting, abdominal pain, fever or chills. Vitals remained within normal limits, hemodynamically stable. She is scheduled for ERCP tomorrow, currently remains on IV heparin. Review of Systems Constitutional: Denies: chills, fever. Cardiovascular: Denies: chest pain, palpitations. Respiratory: Denies: cough, short of breath, sputum production. Gastrointestinal: Denies: abdominal pain, constipation, diarrhea, nausea, vomiting. Objective Last 24 Hrs of Vital Signs/I&O Vital Signs Date Time Temp Pulse Resp B/P B/P Pulse O2 O2 Flow FiO2 Mean Ox Delivery Rate 11/27 1123 94 122/68 11/27 1000 Nasal 3.0L Cannula 11/27 0841 97.1 88 30 114/72 97 Nasal 3.0L Cannula 11/27 0000 Nasal 2.0L Cannula 11/26 2346 98.3 91 24 148/78 98 Nasal 4.0L Cannula 11/26 1600 98.6 69 20 148/70 92 Nasal 3.0L Cannula Intake & Output 11/27 1600 08 0800 08 0000 Intake Total 100 Output Total 500 200 Balance -500 -100 Intake, Oral 100 Output, Urine 500 200 Physical Exam General Appearance: Alert, Oriented X3, Cooperative, No Acute Distress Cardiovascular: Regular Rate, Normal S1, Normal S2, No Murmurs Lungs: Clear to Auscultation, Normal Air Movement Abdomen: Normal Bowel Sounds, Soft, No Tenderness Extremities: No Clubbing, No Cyanosis, No Edema Assessment/Plan Assessment: Ms. Perez is a pleasant 86 year old female with PMH type 2 diabetes mellitus, HTN, HLD, congestive heart failure with reduced ejection fraction (35- 40%), CAD, [place] s/p CABG, atrial fibrillation on xarelto, GERD, GI bleed and gout who presented to [place] due to sudden-onset, 03/31, stabbing epigastric pain. She was initially admitted to ICU for management of acute pancreatitis, Atrial fibrillation with slow ventricular response. She has been downgraded to telemetry floor on 11/24. We are currently monitoring her for the following condition 1. Acute pancreatitis: Patient presented with acute epigastric pain, [place] 2 score = 10, she was kept nothing by mouth, IV hydration, IV pain control. MRCP showed evidence of extrahepatic been very dilatation without evidence of any gallstones. She was started on IV Unasyn, IV PPI, LFTs are improving. * Patient scheduled for ERCP tomorrow, will be kept nothing by mouth overnight. * Patient on full liquid diet * We'll continue Unasyn, patient afebrile, white count improving * Xeralto on hold * Patient to remain on IV heparin pending above. 2. Atrial fibrillation with slow ventricular response * Currently on IV heparin, Xaralto currently on hold pending above DNR/DNI Diet: NPO DVTP: ALPS Pain: Severe pain pathway Problem List: 1. Atrial fibrillation with slow ventricular response 2. Pancreatitis, acute Pain Ratin Pain Location: None Pain Goal: Remain pain free Pain Plan: Morphine Tomorrow's Labs & Rationales: CBC LFTs
[2016-11-27 08:09] LABS: ABSOLUTE BASOPHIL COUNT 0 /CUMM (0.0-0.2); ABSOLUTE EOSINOPHIL COUNT 0 /CUMM (0.0-0.7); ABSOLUTE MONOCYTE COUNT 1.4 /CUMM (0.10-0.60); BASOPHIL % 0.1 % (0.0-2.0); EOSINOPHIL % 0 % (0-5); GRANULOCYTE % 83.1 % (42.2-75.2); HEMATOCRIT 34.7 % (37-47); MEAN CORPUSCULAR HGB 32.1 PG (27.0-31.0); MEAN CORPUSCULAR HGB CONC 32.5 G/DL (33.0-37.0); MEAN CORPUSCULAR VOLUME 98.9 FL (81.0-99.0); PLATELET COUNT 162 /CUMM (130-400); RBC DISTRIBUTION WIDTH 16.5 % (11.5-14.5); RED BLOOD CELL CT 3.51 /CUMM (4.20-5.40); WHITE BLOOD CELL COUNT 14.4 /CUMM (4.8-10.8)
[2016-11-27 08:41] VITALS: BP 114/72
[2016-11-27 08:52] LABS: PTT 72 SEC (25-37)
--- NOTE | 2016-11-27 09:30 | PN- Cardiology ---
Subjective Subjective: Telemetry reviewed. Atrial flutter with controlled ventricular response. Patient sitting out in a chair feeling quite comfortable. Objective Vital Signs and I&Os Vital Signs Date Time Temp Pulse Resp B/P B/P Pulse O2 O2 Flow FiO2 Mean Ox Delivery Rate 11/27 0841 97.1 88 30 114/72 97 Nasal 3.0L Cannula 11/27 0000 Nasal 2.0L Cannula 11/26 2346 98.3 91 24 148/78 98 Nasal 4.0L Cannula 11/26 1600 98.6 69 20 148/70 92 Nasal 3.0L Cannula 11/26 1201 Nasal 3.0L Cannula Intake & Output 11/27 1600 11/27 0800 11/27 0000 11/26 1600 11/26 0800 11/26 0000 Intake Total 100 997.5 500 900 Output Total 500 200 650 350 300 Balance -500 -100 347.5 150 600 Intake, IV 297.5 500 660 Intake, Oral 100 700 0 240 Number 0 Bowel Movements Output, Urine 500 200 650 350 300 Physical Exam: Gen. exam patient appears comfortable. Somewhat pale. Head normocephalic atraumatic Eyes sclera anicteric conjunctiva showed no pallor extraocular muscles were normal Neck no jugular venous distention no thyroid masses no palpable nodes Chest lungs were clear bilaterally Heart irregular rhythm with a ventricular rate of around 80 next and abdomen soft nontender no organomegaly Extremities no clubbing cyanosis or pedal edema Neurologic no gross motor or sensory deficits Current Medications: Current Medications Sig/Chinyere Start time Last Medication Dose Route Stop Time Status Admin Ampicillin Sodium/ 3,000 MG Q6H / 2200 AC / Sulbactam Sodium IV 0400 Sodium Chloride 100 ML Atropine Sulfate 1 MG ONE PRN / 1700 AC IV Dextrose/Sodium 1,000 ML Q20H 06/05 1130 DC 06/06 Chloride IV 1452 Heparin Sodium 25,000 UNIT Q24H /07 1000 AC / (Porcine) IV 0848 Sodium Chloride 500 ML Insulin Aspart 0 TIDAC 11/26 0515 AC / SC 0818 Lorazepam 0.5 MG AT BEDTIME PRN / 2230 AC / PO 12/02 2229 2153 Morphine Sulfate 1 MG Q4P PRN / 1700 AC 11/25 IV 0322 Pantoprazole Sodium 40 MG DAILY 11/24 1000 AC 11/26 IV 1008 Potassium Chloride 40 MEQ ONCE ONE 11/26 1015 DC 11/26 PO 11/26 1016 1024 Prochlorperazine 5 MG Q4P PRN 11/23 1915 AC IV Results Last 48 Hrs of Labs/Mics: Laboratory Tests 11/27/16 0830: APTT 72 H 11/27/16 0600: Anion Gap 8, Estimated GFR > 60, BUN/Creatinine Ratio 31.3 H, Total Bilirubin 1.2, Direct Bilirubin 0.6 H, AST 64 H, ALT 225 H, Alkaline Phosphatase 165 H , Total Protein 4.9 L, Albumin 2.4 L, CBC w Diff Pending, WBC Pending, RBC Pending, Hgb Pending, Hct Pending, MCV Pending, MCH Pending, RDW Pending, Plt Count Pending, MPV Pending, PUBS MCHC Pending 11/26/16 1705: APTT 74 H 11/26/16 0646: Anion Gap 8, Estimated GFR > 60, BUN/Creatinine Ratio 30.0 H, Total Bilirubin 1.7 H, Direct Bilirubin 0.9 H, AST 135 H, ALT 345 H, Alkaline Phosphatase 182 H, Total Protein 5.3 L, Albumin 2.8 L, CBC w Diff NO MAN DIFF REQ, RBC 3.78 L, MCV 99.7 H, MCH 32.3 H, RDW 16.3 H, MPV 10.2, Gran % 87.5 H, Lymphocytes % 4.2 L, Monocytes % 8.3, Eosinophils % 0, Basophils % 0 L, Absolute Granulocytes 16.7 H, Absolute Lymphocytes 0.8 L, Absolute Monocytes 1.6 H, Absolute Eosinophils 0, Absolute Basophils 0, PUBS MCHC 32.4 L Assessment/Plan Assessment/Plan In summary this 86-year-old female is the following problems 1. Acute gallstone pancreatitis 2. History of coronary artery disease, (bypass surgery in 1994 with a MARIN to the LAD, vein grafts to the diagonal, PDA and distal RCA) 3. Known atrial flutter with slow ventricular response rate, on Xarelto 4. Ischemic cardiomyopathy, chronic CHF, EF now 40%, with pulmonary HTN 5. Diabetes/hypertension/hyperlipidemia She appears comfortable. No clinical evidence of congestive heart failure. Would suggest as advised already to decrease her nasal oxygen and if her O2 sats are less than 92 on room air, get a follow-up chest x-ray and resume her home diuretics. Currently stable from a cardiac standpoint with atrial flutter slow ventricular response but no demand for a pacemaker. Continue telemetry? Yes
--- NOTE | 2016-11-27 13:26 | PN- Att Addend ---
Attending MD Review Statement Attending Statement Attending MD Statement: examined this patient, discuss w/resident/PA/BLOCKER AND POLISHER, agreed w/resident/PA/BLOCKER AND POLISHER, reviewed EMR data (avail), discussed w/nursing, discussed w/ case mgmt Attending Assessment/Plan: Laboratory Tests 11/27/16 0830: APTT 72 H 11/27/16 0600: Anion Gap 8, Estimated GFR > 60, BUN/Creatinine Ratio 31.3 H, Total Bilirubin 1.2, Direct Bilirubin 0.6 H, AST 64 H, ALT 225 H, Alkaline Phosphatase 165 H , Total Protein 4.9 L, Albumin 2.4 L, CBC w Diff NO MAN DIFF REQ, RBC 3.51 L, MCV 98.9, MCH 32.1 H, RDW 16.5 H, MPV 10.0, Gran % 83.1 H, Lymphocytes % 6.8 L, Monocytes % 10.0 H, Eosinophils % 0, Basophils % 0.1, Absolute Granulocytes 12.0 H, Absolute Lymphocytes 1.0 L, Absolute Monocytes 1.4 H, Absolute Eosinophils 0, Absolute Basophils 0, PUBS MCHC 32.5 L 11/26/16 1705: APTT 74 H Vital Signs Date Time Temp Pulse Resp B/P B/P Pulse O2 O2 Flow FiO2 Mean Ox Delivery Rate 11/27 1123 94 122/68 11/27 1000 Nasal 3.0L Cannula 11/27 0841 97.1 88 30 114/72 97 Nasal 3.0L Cannula 11/27 0000 Nasal 2.0L Cannula 11/26 2346 98.3 91 24 148/78 98 Nasal 4.0L Cannula 11/26 1600 98.6 69 20 148/70 92 Nasal 3.0L Cannula Patient seen and examined at bedside. Discussed with patient at bedside the care plan. 86-year-old female admitted with acute pancreatitis secondary to gallstones. He was initially admitted to ICU and then transferred out of ICU on 11/24. MRCP done shows extrahepatic biliary dilatation but no filling defects suggestive of CBD stones. Again shows the presence of gallstones but no acute cholecystitis. Pt got one dose of Xarelto yesterday morning. Xarelto has half life of about 12 hrs in elderly and pt should be ok to under go procedure tomorrow morning. Will cont on heparin drip. Pt and her daughter want ERCP done. Planned for ERCP on Thursday. Leukocytosis- improved now , cont to monitor. NO diarrhea or fever. Cont on unasyn for now. Afib- cont on heparin drip for now. Will transition to Xarelto at time of discharge.
[2016-11-27 17:03] VITALS: BP 120/66
[2016-11-27 22:10] LABS: PTT 70 SEC (25-37)
[2016-11-28 00:56] VITALS: BP 128/68
--- NOTE | 2016-11-28 07:33 | PN- Housestaff ---
Subjective Follow-up For: Acute Gallstone pancreatitis Tele-Events Since Last Visit: A flutter, heart rate between 60 to 80s, 4 beat run of V. tach Subjective: Seen and examined this morning. She was sitting comfortably in chair in no acute distress. She is currently nothing by mouth, scheduled for ERCP in the afternoon, IV heparin drip was held earlier this morning. Remains afebrile, white count improving, blood pressure within normal limits. Review of Systems Constitutional: Denies: chills, fever. Cardiovascular: Denies: chest pain, palpitations. Respiratory: Denies: cough, short of breath, sputum production. Gastrointestinal: Denies: abdominal pain, constipation, diarrhea, nausea, vomiting. Objective Last 24 Hrs of Vital Signs/I&O Vital Signs Date Time Temp Pulse Resp B/P B/P Pulse O2 O2 Flow FiO2 Mean Ox Delivery Rate 11/28 1043 92 Room Air 11/28 1022 92 138/88 11/28 0800 Nasal 1.5L Cannula 11/28 0056 98.2 68 22 128/68 96 Nasal Cannula 11/28 0000 Nasal 1.5L Cannula 11/27 1703 97.7 90 22 120/66 98 Nasal Cannula Intake & Output 11/28 1600 11/28 0800 11/28 0000 Intake Total 192 672 Output Total Balance 192 672 Intake, IV 192 192 Intake, Oral 0 480 Number 0 Bowel Movements Physical Exam General Appearance: Alert, Oriented X3, Cooperative, No Acute Distress Cardiovascular: Regular Rate, Normal S1, Normal S2, No Murmurs Lungs: Clear to Auscultation, Normal Air Movement Abdomen: Normal Bowel Sounds, Soft, No Tenderness Current Medications: Current Medications Sig/Chinyere Start time Last Medication Dose Route Stop Time Status Admin Ampicillin Sodium/ 3,000 MG Q6H 11/23 2200 AC / Sulbactam Sodium IV 1016 Sodium Chloride 100 ML Atropine Sulfate 1 MG ONE PRN 11/23 1700 AC IV Dextrose/Sodium 1,000 ML Q20H 11/28 0545 AC 11/28 Chloride IV 0557 Heparin Sodium 25,000 UNIT Q24H 11/26 1000 DC / (Porcine) IV 11/28 0600 0848 Sodium Chloride 500 ML Insulin Aspart 0 TIDAC 11/26 0515 DC 11/27 SC 1737 Insulin Human Regular 0 Q6 11/28 0600 AC 11/28 SC 1317 Lisinopril 20 MG DAILY 11/27 1044 AC 11/28 PO 1022 Lorazepam 0.5 MG AT BEDTIME 11/270 AC 11/27 PO 12/04 Lorazepam 0.5 MG AT BEDTIME PRN 11/25 2230 AC 11/26 PO 12/02 Melatonin 5 MG AT BEDTIME 11/27 2200 AC 11/27 PO 2053 Morphine Sulfate 1 MG Q4P PRN 11/23 1700 AC 11/25 IV 0322 Pantoprazole Sodium 40 MG DAILY 11/24 1000 AC 11/28 IV 1016 Polyethylene Glycol 17 GM DAILY 11/27 1318 AC 11/28 PO 1018 Prochlorperazine 5 MG Q4P PRN 11/23 1915 AC IV Senna/Docusate Sodium 1 TAB BID PRN 11/27 1330 AC 11/27 PO 1737 Last 24 Hrs of Lab/Mejia Results Last 24 Hrs of Labs/Mics: Laboratory Tests 11/28/16 0900: APTT Cancelled 11/28/16 0645: Total Bilirubin 1.0, Direct Bilirubin 0.5 H, AST 71 H, ALT 185 H, Alkaline Phosphatase 185 H, Total Protein 4.9 L, Albumin 2.6 L, CBC w Diff NO MAN DIFF REQ, RBC 3.51 L, MCV 99.5 H, MCH 32.2 H, RDW 16.5 H, MPV 10.1, Gran % 80.5 H, Lymphocytes % 9.5 L, Monocytes % 9.6 H, Eosinophils % 0.4, Basophils % 0 L , Absolute Granulocytes 9.7 H, Absolute Lymphocytes 1.1 L, Absolute Monocytes 1.2 H, Absolute Eosinophils 0.1, Absolute Basophils 0, PUBS MCHC 32.4 L 11/27/162037: APTT 70 H Assessment/Plan Assessment: Ms. Perez is a pleasant 86 year old female with PMH type 2 diabetes mellitus, HTN, HLD, congestive heart failure with reduced ejection fraction (35- 40%), CAD, [place] s/p CABG, atrial fibrillation on xarelto, GERD, GI bleed and gout who presented to [facility] due to sudden-onset, 03/31, stabbing epigastric pain. She was initially admitted to ICU for management of acute pancreatitis, Atrial fibrillation with slow ventricular response. She has been downgraded to telemetry floor on 11/24. We are currently monitoring her for the following condition 1. Acute pancreatitis: Patient presented with acute epigastric pain, [place] 2 score = 10, she was kept nothing by mouth, IV hydration, IV pain control. MRCP showed evidence of extrahepatic been very dilatation without evidence of any gallstones. She was started on IV Unasyn, IV PPI, LFTs are improving. * Patient scheduled for ERCP today, kept nothing by mouth overnight. * We'll continue Unasyn, patient afebrile, white count improving * Xeralto and IV heparin on hold 2. Atrial fibrillation with slow ventricular response * Currently IV heparin and Xaralto currently on hold pending above DNR/DNI Diet: NPO DVTP: ALPS Pain: Severe pain pathway Problem List: 1. Pancreatitis, acute 2. Atrial fibrillation with slow ventricular response Pain Ratin Pain Location: None Pain Goal: Remain pain free Pain Plan: Mild pain pathway Tomorrow's Labs & Rationales: CBC LFTs
[2016-11-28 08:23] LABS: ABSOLUTE BASOPHIL COUNT 0 /CUMM (0.0-0.2); ABSOLUTE EOSINOPHIL COUNT 0.1 /CUMM (0.0-0.7); ABSOLUTE GRANULOCYTE CT 9.7 /CUMM (1.4-6.5); ABSOLUTE LYMPH COUNT 1.1 /CUMM (1.2-3.4); ABSOLUTE MONOCYTE COUNT 1.2 /CUMM (0.10-0.60); BASOPHIL % 0 % (0.0-2.0); EOSINOPHIL % 0.4 % (0-5); GRANULOCYTE % 80.5 % (42.2-75.2); HEMATOCRIT 34.9 % (37-47); MEAN CORPUSCULAR HGB 32.2 PG (27.0-31.0); MEAN CORPUSCULAR HGB CONC 32.4 G/DL (33.0-37.0); MEAN CORPUSCULAR VOLUME 99.5 FL (81.0-99.0); MEAN PLATELET VOLUME 10.1 FL (7.4-10.4); PLATELET COUNT 181 /CUMM (130-400); RBC DISTRIBUTION WIDTH 16.5 % (11.5-14.5); RED BLOOD CELL CT 3.51 /CUMM (4.20-5.40)
--- NOTE | 2016-11-28 10:19 | PN- Cardiology ---
Subjective Subjective: Sitting in her chair resting comfortably. Remains on nasal cannula oxygen with no complaints of dyspnea or recurrent abdominal pain. Objective Vital Signs and I&Os Vital Signs Date Time Temp Pulse Resp B/P B/P Pulse O2 O2 Flow FiO2 Mean Ox Delivery Rate 11/28 0800 Nasal 1.5L Cannula 11/28 0056 98.2 68 22 128/68 96 Nasal Cannula 11/28 0000 Nasal 1.5L Cannula 11/27 1703 97.7 90 22 120/66 98 Nasal Cannula 11/27 1123 94 122/68 Intake & Output 11/28 1600 11/28 0800 11/28 0000 11/27 1600 11/27 0800 11/27 0000 Intake Total 192 672 896 100 Output Total 500 500 200 Balance 192 672 396 -500 -100 Intake, IV 192 192 196 Intake, Oral 0 480 700 100 Number 0 Bowel Movements Output, Urine 500 500 200 Physical Exam: General: no apparent distress. Alert. On NC. Eyes: No obvious scleral icterus. HEENT: No jugular venous distention or abnormal jugular venous pulsations. Cardiovascular: Normal intensity S1/S2. Irregular. Respiratory: Lungs clear to auscultation bilaterally. Abdomen: no guarding Musculoskeletal: No clubbing or cyanosis noted, trace pedal edema Skin: Warm Neurologic: No gross focal deficits noted. Current Medications: Current Medications Sig/Chinyere Start time Last Medication Dose Route Stop Time Status Admin Ampicillin Sodium/ 3,000 MG Q6H / 2200 AC 11/28 Sulbactam Sodium IV 0358 Sodium Chloride 100 ML Atropine Sulfate 1 MG ONE PRN / 1700 AC IV Dextrose/Sodium 1,000 ML Q20H / 0545 AC / Chloride IV 0557 Heparin Sodium 25,000 UNIT Q24H / 1000 DC / (Porcine) IV / 0600 0848 Sodium Chloride 500 ML Insulin Aspart 0 TIDAC 11/26 0515 DC 11/27 SC 1737 Insulin Human Regular 0 Q6 11/28 0600 11/28 SC 0557 Lisinopril 20 MG DAILY 11/27 1044 AC 11/27 PO 1123 Lorazepam 0.5 MG AT BEDTIME 11/27 2200 AC 11/27 PO 12/04 Lorazepam 0.5 MG AT BEDTIME PRN 11/25 2230 AC 11/26 PO 06/13 2229 2153 Melatonin 5 MG AT BEDTIME 11/27 2200 AC 11/27 PO 205 Morphine Sulfate 1 MG Q4P PRN 11/23 1700 AC 11/25 IV 0322 Pantoprazole Sodium 40 MG DAILY 11/24 1000 AC 11/27 IV 1124 Patient Medication 1 ED .STK-MED ONE 11/27 1316 SD Teaching ED 11/27 1317 Polyethylene Glycol 17 GM DAILY 11/27 1318 AC 11/27 PO 1735 Potassium Chloride 40 MEQ ONCE ONE 11/27 1115 DC 11/27 PO 11/27 1116 1124 Prochlorperazine 5 MG Q4P PRN 11/23 1915 AC IV Senna/Docusate Sodium 1 TAB BID PRN 11/27 1330 AC 11/27 PO 1737 Results Last 48 Hrs of Labs/Mics: Laboratory Tests 11/28/16 0900: APTT Cancelled 11/28/16 0645: Total Bilirubin 1.0, Direct Bilirubin 0.5 H, AST 71 H, ALT 185 H, Alkaline Phosphatase 185 H, Total Protein 4.9 L, Albumin 2.6 L, CBC w Diff NO MAN DIFF REQ, RBC 3.51 L, MCV 99.5 H, MCH 32.2 H, RDW 16.5 H, MPV 10.1, Gran % 80.5 H, Lymphocytes % 9.5 L, Monocytes % 9.6 H, Eosinophils % 0.4, Basophils % 0 L , Absolute Granulocytes 9.7 H, Absolute Lymphocytes 1.1 L, Absolute Monocytes 1.2 H, Absolute Eosinophils 0.1, Absolute Basophils 0, PUBS MCHC 32.4 L 11/27/168: APTT 70 H 11/27/16 0830: APTT 72 H 11/27/16 0600: Anion Gap 8, Estimated GFR > 60, BUN/Creatinine Ratio 31.3 H, Total Bilirubin 1.2, Direct Bilirubin 0.6 H, AST 64 H, ALT 225 H, Alkaline Phosphatase 165 H , Total Protein 4.9 L, Albumin 2.4 L, CBC w Diff NO MAN DIFF REQ, RBC 3.51 L, MCV 98.9, MCH 32.1 H, RDW 16.5 H, MPV 10.0, Gran % 83.1 H, Lymphocytes % 6.8 L, Monocytes % 10.0 H, Eosinophils % 0, Basophils % 0.1, Absolute Granulocytes 12.0 H, Absolute Lymphocytes 1.0 L, Absolute Monocytes 1.4 H, Absolute Eosinophils 0, Absolute Basophils 0, PUBS MCHC 32.5 L 11/26/16 1705: APTT 74 H Recent Imaging Studies: Telemetry tracings were personally reviewed and shows atrial flutter Assessment/Plan Assessment/Plan 1. Acute gallstone pancreatitis 2. History of coronary artery disease, (bypass surgery in 1994 with a MARIN to the LAD, vein grafts to the diagonal, PDA and distal RCA) 3. Known atrial flutter with slow ventricular response rate, on Xarelto 4. Ischemic cardiomyopathy, chronic CHF, EF now 40%, with pulmonary HTN 5. Diabetes/hypertension/hyperlipidemia As patient remains on nasal cannula oxygen recommend obtaining a repeat chest x- ray and resuming her home diuretic regimen. Anticoagulation is currently on hold for planned ERCP, resume when cleared by GI. She is hemodynamically stable. Continue on MAGAN inhibitor. Beta jada remains contraindicated despite her low EF. No evidence of symptomatic or hemodynamically significant bradycardia at present. Tye Crandall MD [facility] Continue telemetry? Yes
--- NOTE | 2016-11-28 14:01 | Patient Discharge Instructions ---
Discharge Instructions General Discharge Information You were seen/treated for: Acute Gallstone pancreatitis Bradycardia in the setting of atrial fibrillation Transaminitis Hypertension HyperLipidemia Diabetes mellitus Hypothyroidism Special Instructions: Please schedule a follow-up appointment with your primary care physician, communications intern, print graphic designer in 1 week. Take Ciprofloxacin as directed. Start this medication tonight. Be sure to finish this medicine. Stop Taking Cefalexin while taking Ciprofloxacin. Restart this medication afterward. Stop taking Magnesium oxide, your magnesium levels are elevated. Continue to take Xarelto. Diet Continue normal diet: Yes Recommended Diet: Heart Healthy, Low Fat Activity Full Activity/No Limits: Yes Activity Self Limited: Yes Acute Coronary Syndrome Inclusion Criteria At DC or during hospital stay patient has or had the following: ACS DIAGNOSIS No Discharge Core Measures Meds if any: Prescribed or Continued at Discharge Meds if any: NOT Prescribed or Continued at Discharge Congestive Heart Failure Inclusion Criteria At DC or during hospital stay patient has or had the following: CHF DIAGNOSIS No Discharge Core Measures Meds if any: Prescribed or Continued at Discharge Meds if any: NOT Prescribed or Continued at Discharge Cerebrovascular accident Inclusion Criteria At DC or during hospital stay patient has or had the following: CVA/TIA Diagnosis No Discharge Core Measures Meds if any: Prescribed or Continued at Discharge Meds if any: NOT Prescribed or Continued at Discharge Venous thromboembolism Inclusion Criteria VTE Diagnosis No VTE Type NONE VTE Confirmed by (Test) NONE Discharge Core Measures - Per Current guidelines, there needs to be overlap - treatment for the first 5 days of Warfarin therapy. - If discharged on Warfarin prior to 5 days of - overlap therapy, the patient will need to be - assessed for post discharge needs including - *Post discharge parental anticoagulation - *Warfarin and/or parental anticoagulation education - *Follow up date to check INR post discharge At least 5 days overlap therapy as Inpatient No Meds if any: Prescribed or Continued at Discharge Note: Overlap Therapy is Warfarin and Anticoagulant Meds if any: NOT Prescribed or Continued at Discharge
--- NOTE | 2016-11-28 14:32 | PN- Att Addend ---
Attending MD Review Statement Attending Statement Attending MD Statement: examined this patient, discuss w/resident/PA/JUNIOR ELECTRICAL ENGINEER, agreed w/resident/PA/JUNIOR ELECTRICAL ENGINEER, reviewed EMR data (avail), discussed w/nursing, discussed w/ case mgmt Attending Assessment/Plan: Laboratory Tests 11/28/16 0900: APTT Cancelled 11/28/16 0645: Total Bilirubin 1.0, Direct Bilirubin 0.5 H, AST 71 H, ALT 185 H, Alkaline Phosphatase 185 H, Total Protein 4.9 L, Albumin 2.6 L, CBC w Diff NO MAN DIFF REQ, RBC 3.51 L, MCV 99.5 H, MCH 32.2 H, RDW 16.5 H, MPV 10.1, Gran % 80.5 H, Lymphocytes % 9.5 L, Monocytes % 9.6 H, Eosinophils % 0.4, Basophils % 0 L , Absolute Granulocytes 9.7 H, Absolute Lymphocytes 1.1 L, Absolute Monocytes 1.2 H, Absolute Eosinophils 0.1, Absolute Basophils 0, PUBS MCHC 32.4 L 11/27/162037: APTT 70 H Vital Signs Date Time Temp Pulse Resp B/P B/P Pulse O2 O2 Flow FiO2 Mean Ox Delivery Rate 11/28 1043 92 Room Air 11/28 1022 92 138/88 11/28 0800 Nasal 1.5L Cannula 11/28 0056 98.2 68 22 128/68 96 Nasal Cannula 11/28 0000 Nasal 1.5L Cannula 11/27 1703 97.7 90 22 120/66 98 Nasal Cannula 86-year-old female admitted with acute pancreatitis secondary to gallstones. He was initially admitted to ICU and then transferred out of ICU on 11/24. MRCP done shows extrahepatic biliary dilatation but no filling defects suggestive of CBD stones. Again shows the presence of gallstones but no acute cholecystitis. Pt got one dose of Xarelto on 11/25 morning. Xarelto has half life of about 12 hrs in elderly and pt should be ok to under go procedure today morning. Will cont on heparin drip. Pt and her daughter want ERCP done. Planned for ERCP today on Thursday. Will f/u on results. Leukocytosis- Likely ascendign cholangitis. improved now , cont to monitor. NO diarrhea or fever. Cont on unasyn for now. Will dc on 11/29. Was started on 11/23 . Possible dc thursday or thursday. Will dc off abx at time of discharge. Afib- cont on heparin drip for now. Will transition to Xarelto at time of discharge. Disposition- dc home with home care over the weekend.
[2016-11-28] MEDS ORDERED: PROTONIX40 M3 PO ×2 (16:07→16:08)
[2016-11-28 16:15] VITALS: BP 110/68
--- NOTE | 2016-11-28 16:32 | PN- Gastroenterology ---
Assessment/Plan Assessment/Recommendations: Acute gallstone pancreatitis, asymptomatic. No retained CBD stones on MRCP. Liver enzymes/bilirubin stable. Improvement in leukocytosis. Anticipated ERCP was canceled because of unavailability of operating room and necessary fluoroscopic equipment. Recommendations * Advance to low fat * Switch empirically to oral Cipro 500 mg by mouth twice a day for 5 days * Begin Xarelto, and discontinue heparin when appropriate * Anticipate discharge over the weekend. Will plan on outpatient ERCP/ sphincterotomy. Will discuss anticoagulation (possible bridging) with cardiology. Thank you very much. Please call or reconsult gastroenterology service prior to discharge if necessary. Subjective Subjective: No pain or nausea. Objective Vital Signs and I&Os Vital Signs Date Time Temp Pulse Resp B/P B/P Pulse O2 O2 Flow FiO2 Mean Ox Delivery Rate 11/28 1615 98.6 60 20 110/68 96 Room Air 11/28 1043 92 Room Air 11/28 1022 92 138/88 11/28 0800 Nasal 1.5L Cannula 11/28 0056 98.2 68 22 128/68 96 Nasal Cannula 11/28 0000 Nasal 1.5L Cannula 11/27 1703 97.7 90 22 120/66 98 Nasal Cannula Intake & Output 11/28 1600 11/28 0400 11/27 1600 11/27 0400 11/26 1600 11/26 0400 Intake Total 382 672 107 249 5416.5 900 Output Total 4239 740 4989 300 Balance 382 672 -104 -100 497.5 600 Intake, IV 322 192 196 797.5 660 Intake, Oral 60 480 700 100 700 240 Number 0 0 Bowel Movements Output, Urine 3665 681 5664 300 Physical Exam: Sclera anicteric. Abdomen nontender. Results Pertinent Lab Results: Laboratory Tests 11/28 11/28 11/27 0900 0645 2038 Chemistry Total Bilirubin (0.2 - 1.3 mg/dL) 1.0 Direct Bilirubin (< 0.4 mg/dL) 0.5 H AST (14 - 36 U/L) 71 H ALT (9 - 52 U/L) 185 H Alkaline Phosphatase (<127 U/L) 185 H Total Protein (6.3 - 8.2 g/dL) 4.9 L Albumin (3.5 - 5.0 g/dL) 2.6 L Coagulation APTT (25 - 37 SEC) Cancelled 70 H Hematology CBC w Diff NO MAN DIFF REQ WBC (4.8 - 10.8 /CUMM) 12.0 H RBC (4.20 - 5.40 /CUMM) 3.51 L Hgb (12.0 - 16.0 G/DL) 11.3 L Hct (37 - 47 %) 34.9 L MCV (81.0 - 99.0 FL) 99.5 H MCH (27.0 - 31.0 PG) 32.2 H RDW (11.5 - 14.5 %) 16.5 H Plt Count (130 - 400 /CUMM) 181 MPV (7.4 - 10.4 FL) 10.1 Gran % (42.2 - 75.2 %) 80.5 H Lymphocytes % (20.5 - 51.1 %) 9.5 L Monocytes % (1.7 - 9.3 %) 9.6 H Eosinophils % (0 - 5 %) 0.4 Basophils % (0.0 - 2.0 %) 0 L Absolute Granulocytes (1.4 - 6.5 /CUMM) 9.7 H Absolute Lymphocytes (1.2 - 3.4 /CUMM) 1.1 L Absolute Monocytes (0.10 - 0.60 /CUMM) 1.2 H Absolute Eosinophils (0.0 - 0.7 /CUMM) 0.1 Absolute Basophils (0.0 - 0.2 /CUMM) 0 PUBS MCHC (33.0 - 37.0 G/DL) 32.4 L 06/08 06/08 06/07 0830 0600 1705 Chemistry Sodium (137 - 145 mmol/L) 141 Potassium (3.5 - 5.1 mmol/L) 3.6 Chloride (98 - 107 mmol/L) 109 H Carbon Dioxide (22 - 30 mmol/L) 24 Anion Gap (5 - 16) 8 BUN (7 - 17 mg/dL) 25 H Creatinine (0.5 - 1.0 mg/dL) 0.8 Estimated GFR (>60 ml/min) > 60 BUN/Creatinine Ratio (7 - 25 %) 31.3 H Total Bilirubin (0.2 - 1.3 mg/dL) 1.2 Direct Bilirubin (< 0.4 mg/dL) 0.6 H AST (14 - 36 U/L) 64 H ALT (9 - 52 U/L) 225 H Alkaline Phosphatase (<127 U/L) 165 H Total Protein (6.3 - 8.2 g/dL) 4.9 L Albumin (3.5 - 5.0 g/dL) 2.4 L Coagulation APTT (25 - 37 SEC) 72 H 74 H Hematology CBC w Diff NO MAN DIFF REQ WBC (4.8 - 10.8 /CUMM) 14.4 H RBC (4.20 - 5.40 /CUMM) 3.51 L Hgb (12.0 - 16.0 G/DL) 11.3 L Hct (37 - 47 %) 34.7 L MCV (81.0 - 99.0 FL) 98.9 MCH (27.0 - 31.0 PG) 32.1 H RDW (11.5 - 14.5 %) 16.5 H Plt Count (130 - 400 /CUMM) 162 MPV (7.4 - 10.4 FL) 10.0 Gran % (42.2 - 75.2 %) 83.1 H Lymphocytes % (20.5 - 51.1 %) 6.8 L Monocytes % (1.7 - 9.3 %) 10.0 H Eosinophils % (0 - 5 %) 0 Basophils % (0.0 - 2.0 %) 0.1 Absolute Granulocytes (1.4 - 6.5 /CUMM) 12.0 H Absolute Lymphocytes (1.2 - 3.4 /CUMM) 1.0 L Absolute Monocytes (0.10 - 0.60 /CUMM) 1.4 H Absolute Eosinophils (0.0 - 0.7 /CUMM) 0 Absolute Basophils (0.0 - 0.2 /CUMM) 0 PUBS MCHC (33.0 - 37.0 G/DL) 32.5 L / 0646 Chemistry Sodium (137 - 145 mmol/L) 140 Potassium (3.5 - 5.1 mmol/L) 3.5 Chloride (98 - 107 mmol/L) 106 Carbon Dioxide (22 - 30 mmol/L) 26 Anion Gap (5 - 16) 8 BUN (7 - 17 mg/dL) 24 H Creatinine (0.5 - 1.0 mg/dL) 0.8 Estimated GFR (>60 ml/min) > 60 BUN/Creatinine Ratio (7 - 25 %) 30.0 H Total Bilirubin (0.2 - 1.3 mg/dL) 1.7 H Direct Bilirubin (< 0.4 mg/dL) 0.9 H AST (14 - 36 U/L) 135 H ALT (9 - 52 U/L) 345 H Alkaline Phosphatase (<127 U/L) 182 H Total Protein (6.3 - 8.2 g/dL) 5.3 L Albumin (3.5 - 5.0 g/dL) 2.8 L Hematology CBC w Diff NO MAN DIFF REQ WBC (4.8 - 10.8 /CUMM) 19.1 H RBC (4.20 - 5.40 /CUMM) 3.78 L Hgb (12.0 - 16.0 G/DL) 12.2 Hct (37 - 47 %) 37.6 MCV (81.0 - 99.0 FL) 99.7 H MCH (27.0 - 31.0 PG) 32.3 H RDW (11.5 - 14.5 %) 16.3 H Plt Count (130 - 400 /CUMM) 169 MPV (7.4 - 10.4 FL) 10.2 Gran % (42.2 - 75.2 %) 87.5 H Lymphocytes % (20.5 - 51.1 %) 4.2 L Monocytes % (1.7 - 9.3 %) 8.3 Eosinophils % (0 - 5 %) 0 Basophils % (0.0 - 2.0 %) 0 L Absolute Granulocytes (1.4 - 6.5 /CUMM) 16.7 H Absolute Lymphocytes (1.2 - 3.4 /CUMM) 0.8 L Absolute Monocytes (0.10 - 0.60 /CUMM) 1.6 H Absolute Eosinophils (0.0 - 0.7 /CUMM) 0 Absolute Basophils (0.0 - 0.2 /CUMM) 0 PUBS MCHC (33.0 - 37.0 G/DL) 32.4 L
[2016-11-28 22:25] VITALS: BP 128/68
[2016-11-29 08:54] VITALS: BP 175/84
--- NOTE | 2016-11-29 09:21 | PN- Housestaff ---
MONISHA SMITH,TONY 11/29/16 0920: Subjective Follow-up For: Gallstone pancreatitis Subjective: Patient seen and examined. She is seen sitting upright in her chair at bedside resting comfortably. She appears to be in no acute distress. At her bedside are two family members. She states that her abdominal pain has completely resolved. She no longer has nausea or 'dry heaves'. She reports eating/drinking well and otherwise feels great; she is requesting to be discharged to home. Additionally she denies any headache, fever, chills, chest pain/discomfort, shortness of breath, nausea, vomiting, diarrhea. Review of Systems Constitutional: Reports: see HPI. Objective Last 24 Hrs of Vital Signs/I&O Vital Signs Date Time Temp Pulse Resp B/P B/P Pulse O2 O2 Flow FiO2 Mean Ox Delivery Rate 11/29 1050 58 146/78 11/29 0902 93 175/84 11/29 0854 97.7 93 17 175/84 97 Room Air 11/28 2225 98.0 56 18 128/68 94 Room Air 11/28 1615 98.6 60 20 110/68 96 Room Air Intake & Output 11/29 1600 11/29 0800 11/29 0000 Intake Total 600 770 Output Total Balance 600 770 Intake, IV 240 130 Intake, Oral 360 640 Physical Exam General Appearance: Alert, Oriented X3, Cooperative, No Acute Distress Other Physical Findings: General- well developed, well nourishedr elderly woman in no acute distress HEENT- NCAT, PERRL, EOMI, anicteric sclera Chest- irregular Lung- CTA bilaterally Abdomen- Soft, obese, nontender, nondistnded, bowel sounds intact Neuro- Awake and alert, CN II - XII grossly intact Ext- normal pulses, no cyanosis/clubbing/edema Current Medications: Current Medications Sig/Chinyere Start time Last Medication Dose Route Stop Time Status Admin Ampicillin Sodium/ 3,000 MG Q6H 11/23 2200 DC 11/29 Sulbactam Sodium IV 11/29 1800 0355 Sodium Chloride 100 ML Atropine Sulfate 1 MG ONE PRN 11/23 1700 AC IV Bisacodyl 10 MG ONCE ONE 11/28 1730 DC 11/28 SC 11/28 1731 1736 Ciprofloxacin 500 MG Q12 11/29 1000 AC 11/29 PO 12/03 0959 1024 Dextrose/Sodium 1,000 ML Q20H 11/28 0545 DC 11/28 Chloride IV 0557 Furosemide 40 MG DAILY 11/28 1800 AC 11/29 PO 0902 Insulin Aspart 0 TIDAC 11/29 1200 AC 11/29 SC 1224 Insulin Human Regular 0 Q6 11/28 0600 DC 11/28 SC 1828 Lisinopril 20 MG DAILY 11/27 1044 AC 11/29 PO 0902 Lorazepam 0.5 MG AT BEDTIME 11/27 2200 AC 11/28 PO 12/04 2159 2131 Lorazepam 0.5 MG AT BEDTIME PRN 11/25 2230 AC 11/26 PO 12/02 2229 2153 Melatonin 5 MG AT BEDTIME 11/27 2200 AC 11/28 PO 2131 Morphine Sulfate 1 MG Q4P PRN 11/23 1700 AC 11/25 IV 0322 Pantoprazole Sodium 40 MG DAILY 11/24 1000 AC 11/29 IV 0902 Polyethylene Glycol 17 GM DAILY 11/27 1318 AC 11/28 PO 1018 Prochlorperazine 5 MG Q4P PRN 11/23 1915 AC IV Rivaroxaban 20 MG DAILY@1700 11/28 1700 DC PO Rivaroxaban 20 MG DAILY 11/28 1651 AC 11/29 PO 0902 Senna/Docusate Sodium 1 TAB BID PRN 11/27 1330 AC 11/27 PO 1737 Assessment/Plan Assessment: Patient reports clinical improved of her gallstone pancreatitis as she denies any further abdominal pain or nausea. She is to be discharge to home with a five day total course of ciprofloxacin; she is to stop her chronic suppressive antibiotics during this. She is to continue on Xarelto and is instructed to stop this two days prior to her outpatient ERCP. She is discharged to home with home physical therapy. Problem List: -Acute Gallstone Pancreatitis -Atriall fibrillation Plan: -DC Home -Cipro 500mg PO BID #9 -Stop cephalosporin during ciprofloxacin course -Outpatient ERCP, hold anticoagulation two days prior -Home Physical therapy Problem List: 1. Atrial fibrillation with slow ventricular response 2. Gallstone pancreatitis Pain Ratin Pain Location: None Pain Goal: Remain pain free Pain Plan: See assessment Tomorrow's Labs & Rationales: None HEMA SMITH,TABITHA 11/29/16 1314: Attending MD Review Statement Attending Statement Attending Assessment/Plan: Patient seen and examined. Plan of care discussed with the medical team and the patient. Available lab work and radiology test reports were reviewed. Patient sitting in chair without any new complaints. She is anxious to go home today. She denies any nausea vomiting fever chills or abdominal pain. Abdomen soft nontender. Vital signs are stable. No new labs were done today. Assessment plan * Gallstone pancreatitis - plan for ERCP as outpatient by Dr. Jaimes. * Patient has been restarted on anti-coagulation with Xeralto * Can to Cipro for 5 days and hold cephalexin while she is taking Cipro. Patient can resume cephalexin after finishing Cipro. * Plan was discussed with manager international and patient's daughter.
[2016-11-29 10:50] VITALS: BP 146/78
--- NOTE | 2016-11-29 11:16 | PN- Cardiology ---
Subjective Subjective: * No complaints. * Atrial flutter with controlled heart rate. * ERCP could not be performed at this time and is scheduled to be done as an outpatient. Objective Vital Signs and I&Os Vital Signs Date Time Temp Pulse Resp B/P B/P Pulse O2 O2 Flow FiO2 Mean Ox Delivery Rate 11/29 1050 58 146/78 11/29 0902 93 175/84 11/29 0854 97.7 93 17 175/84 97 Room Air 11/28 2225 98.0 56 18 128/68 94 Room Air 11/28 1615 98.6 60 20 110/68 96 Room Air Intake & Output 11/29 1600 11/29 0800 11/29 0000 11/28 1600 11/28 0800 11/28 0000 Intake Total 600 770 190 192 672 Output Total Balance 600 770 190 192 672 Intake, IV 240 130 130 192 192 Intake, Oral 360 640 60 0 480 Number 0 Bowel Movements Physical Exam: General: WD/ WN female in NAD; alert and oriented x 3 Heart: irregularly irregular Lungs: clear bilaterally Extremities: no edema Assessment/Plan Assessment/Plan * Resume anticoagulation and stop for two days prior to anticipated GI procedure. * Patient is otherwise stable for discharge from a cardiac standpoint. Continue telemetry? No
[2016-11-29] MEDS ORDERED: CIPROFLOXACIN500 M2 PO (11:25)
--- NOTE | 2016-11-30 14:59 | Discharge Summary ---
Visit Information Visit Dates Admission Date: 11/23/16 Discharge Date: 11/29/16 Hospital Course Course Attending Physician: MYRIAM PENALOZA MD Primary Care Physician: LISET MATTHEW MD Hospital Course: Ms. 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 In the ED: Vital signs showed T 97.0, HR 35-74, RR 18-20, BP 90/56 increased to 111/55 after fluids, O2 saturation 88-97% on 2-3 L NC. Labs were significant for: WBC 14.2 without bands, 77.7% granulocytes, H&H 14/ 43.5, Plt 216, Na 135, K 4.3, Cl 95, HCO3 29, BUN/cre 35/1, Glu 195, lactic acid 3.8, magnesium 3.6, TBili 1.1, AST 463, ALT 163, alk phos 281, troponon 0.04, normal lipid panel, lipase >10,000 and INR 1.31. EKG showed atrial flutter, bradycardia to 39 bpm and IVCD with WTC 355. CXR showed no acute pathology, no overt pulmonary edema. Abdominal/pelvis CT showed peripancratic fluid with inflammatory changes (no fluid collections seen). Multiple gallstones within the gallbladder lumen. Patient was initially admitted to ICU later transfered to [facility] and managed for acute pancreatitis, transaminitis, atrial fibrillation with ventricular response. Acute gallstone pancreatitis: Patient presented with acute epigastric pain, Craig 2 score = 10, she was kept nothing by mouth, IV hydration, IV pain control. She was kept on IV Unasyn, IV PPI, LFTs improved over the course of her admission. MRCP showed evidence of extrahepatic been very dilatation without evidence of any gallstones. GI was on board, planned an outpatient ERCP/sphincterotomy. Recommended to start patient on ciprofloxacin 500 mg twice a day for 5 days followed by resuming cephalexin. He should advised to follow-up with screw machine set up operator tool within 1 week. A. fib with slow ventricular response: Patient continued on Xarelto upon discharge. Hyperlipidemia: Patient continued on simvastatin 40 mg Hypothyroidism: Patient continued on home dose of levothyroxine. Low-fat diet DVT prophylaxis with Xeralto Pain pathway DNR/DNI Allergies: Coded Allergies: sulfamethoxazole (From [facility]) (RASH 10/01/15) thiopental (PER PT ONLY CAN HAVE A TEST DOSE 03/18/16) trimethoprim (From [facility]ACTR[facility]) (RASH 10/01/15) Disposition Summary Disposition Principal Diagnosis: Acute Gallstone pancreatitis atrial fibrillation with slow vent rate Additional Diagnosis: Transaminitis Hypertension HyperLipidemia Diabetes mellitus Hypothyroidism Discharge Disposition: home health services Discharge Instructions General Discharge Information Code Status: Do Not Intubate Patient's Diet: low fat diet Patient's Activity: as tolerated Follow-Up Instructions/Appts: Please schedule a follow-up appointment with your primary care physician, set up and lay out inspector, screw machine set up operator tool in 1 week. Take Ciprofloxacin as directed. Start this medication tonight. Be sure to finish this medicine. Stop Taking Cefalexin while taking Ciprofloxacin. Restart this medication afterward. Stop taking Magnesium oxide, your magnesium levels are elevated. Continue to take Xarelto. Medications at Discharge Discharge Medications: Stop taking the following medications: Magnesium Oxide (Magnesium) 400 MG CAPSULE ORAL DAILY Cephalexin (Cephalexin) 250 MG CAPSULE ORAL Every other day Days = 60 Continue taking these medications: Metformin HCl (Metformin HCl) 1,000 MG TABLET 1 Tablet ORAL TWICE DAILY Comments: NOT GIVEN IN HOSPITAL Sitagliptin Phosphate (Januvia) 100 MG TABLET 1 Tablet ORAL Every Morning Comments: NOT GIVEN IN HOSPITAL Isosorbide Mononitrate (Isosorbide Mononitrate ER) 60 MG TAB.ER.24H 1 Tablet ORAL DAILY Comments: NOT GIVEN IN HOSPITAL Benazepril HCl (Benazepril HCl) 20 MG TABLET 1 Tablet ORAL DAILY Comments: NOT GIVEN IN HOSPITAL Furosemide (Furosemide) 40 MG TABLET 1 Tablet ORAL Every Morning Comments: Last Taken: 11/29/16 Time: 0900 Omeprazole (Omeprazole) 20 MG CAPSULE.DR 1 Capsule ORAL DAILY Comments: Last Taken: 11/29/16 Time: 0900 GAVE IV PROTONIX INSTEAD Levothyroxine Sodium (Synthroid) 88 MCG TABLET 1 Tablet ORAL DAILY Allopurinol (Allopurinol) 300 MG TABLET 1 Tablet ORAL DAILY Comments: NOT GIVEN IN HOSPITAL Simvastatin (Simvastatin*) 40 MG TABLET 1 Tablet ORAL Every night Levomefolate/B6/B12/Algal Oil (Metanx Capsule) 1 EACH CAPSULE 1 Capsule ORAL TWICE DAILY Comments: PER PT NOT GIVEN IN HOSPITAL Rivaroxaban (Xarelto) 20 MG TABLET 1 Tablet ORAL Every night Instructions: with food Comments: Last Taken: 11/29/16 Time: 0900 Gabapentin (Neurontin) 100 MG CAPSULE 1 Capsule ORAL THREE TIMES DAILY Comments: PER PT NOT GIVEN IN HOSPITAL Lorazepam (Ativan) 0.5 MG TABLET 1 Tablet ORAL TAKE AT BEDTIME Comments: Last Taken: 11/28/16 Time: 9PM Folic Acid/Multivit-Min/Lutein (Centrum Silver Chewable Tablet) 400 MCG-250 MCG TAB.CHEW 1 Tablet ORAL Every Day Comments: NOT GIVEN IN HOSPITAL Chromium Picolinate (Chromium Picolinate) 1,000 MCG TABLET 0.5 Tablet ORAL Every Day Comments: NOT GIVEN IN HOSPITAL Lactobacillus Acidophilus (Acidophilus) 1 EACH CAPSULE 1 Capsule ORAL DAILY Comments: NOT GIVEN IN HOSPITAL Lysine (L-Lysine) 500 MG TABLET 1 Tablet ORAL Every Day Comments: NOT GIVEN IN HOSPITAL [place]-3S/Dha/Epa/Fish Oil (Fish Oil 1,200 MG Softgel) 360-1,200MG CAPSULE 1 Capsule ORAL Every Day Comments: NOT GIVEN IN HOSPITAL Cholecalciferol (Vitamin D3) (Vitamin D-3) 2,000 UNIT CAPSULE 1 Capsule ORAL Every Day Comments: NOT GIVEN IN HOSPITAL Calcium Carbonate/Vitamin D3 (Caltrate 600 + D Tablet) 600 MG-800 TABLET 1 Tablet ORAL DAILY Comments: NOT GIVEN IN HOSPITAL Vit C/E/Zn/Coppr/Lutein/Zeaxan (Preservision Areds 2 Softgel) 1 EACH CAPSULE 1 Capsule ORAL TWICE DAILY Comments: PER PT NOT GIVEN IN HOSPITAL Ubidecarenone (Co Q-10) (Unknown Strength) CAPSULE Unknown Dose ORAL DAILY Comments: PER PT NOT GIVEN IN HOSPITAL Carboxymethylcellulose Sodium (Refresh Tears) 15 ML DROPS 1 DROP OPHTHALMIC TID-4XDAILY Comments: NOT GIVEN IN HOSPITAL Diclofenac Sodium (Voltaren) 100 GM GEL..GRAM. 1 Gram On the skin Every other day Instructions: apply to affected area(s) Comments: PER PT NOT GIVEN IN HOSPITAL Estradiol (Estrace) (Unknown Strength) CREAM.APPL 1 Application VAGINAL TAKE AT BEDTIME Comments: PER PT Cranberry Extract (Cranberry) (Unknown Strength) CAPSULE Unknown Dose ORAL DAILY Comments: PER PT NOT GIVEN IN HOSPITAL Meloxicam (Mobic) 15 MG TABLET 1 Tablet ORAL DAILY as needed for PAIN Qty = 10 Comments: NOT GIVEN IN HOSPITAL Start taking the following new medications: Ciprofloxacin HCl (Ciprofloxacin HCl) 500 MG TABLET 1 Tablet ORAL TWICE DAILY Qty = 9 No Refills Comments: Last Taken: 11/29/16 Time: 1030 Copies To: TREMAINE SMITH,MYRIAM Bird; ANN SMITH,JOSE De Jesus; TIFF SMITH,LISET Doan; AUGUSTINA SMITH, DEVANG Doan
== END 2016-11-29 14:15 | disposition home health service (06) | DRG 439 ==
LOC: ERH 11:50 → ERHI 15:42 → CRI 15:42 → 1NO 15:42 → ENRESERV 17:06 → CRI 18:01 → 1NO 11-24 15:05 → ENPENDDIS 11-29 12:15 → 1NO 11-29 14:15
PROVIDERS: Emergency Medicine; Internal Medicine; Internal Medicine Endocrinology, Diabetes & Metabolism; Internal Medicine Hematology & Oncology; Student in an Organized Health Care Education/Training Program; ADMIT Hospitalist
PROC: BF37ZZZ Magnetic Resonance Imaging (MRI) of Pancreas (ICD-10-PCS; principal; 2016-11-24)
DX: K85.10 Biliary acute pancreatitis without necrosis or infection (principal); I48.92 Unspecified atrial flutter; I11.0 Hypertensive heart disease with heart failure; I50.22 Chronic systolic (congestive) heart failure; I48.91 Unspecified atrial fibrillation; I25.5 Ischemic cardiomyopathy; E83.42 Hypomagnesemia; E87.1 Hypo-osmolality and hyponatremia; E11.9 Type 2 diabetes mellitus without complications; K59.09 Other constipation; K44.9 Diaphragmatic hernia without obstruction or gangrene; E03.9 Hypothyroidism, unspecified; K80.20 Calculus of gallbladder without cholecystitis without obstruction; E78.5 Hyperlipidemia, unspecified; I25.10 Atherosclerotic heart disease of native coronary artery without angina pectoris; Z95.1 Presence of aortocoronary bypass graft; I25.2 Old myocardial infarction; M10.9 Gout, unspecified; Z87.891 Personal history of nicotine dependence; Z79.01 Long term (current) use of anticoagulants; Z79.84 Long term (current) use of oral hypoglycemic drugs
CPT/HCPCS: 1NSP; 74181; 83735; 84133; 84300; 86618; CCU; 36415; 74177; 81001; 82436; 82570; 87040; 87045; 87086; 93005; 93010; 93306; 96365; 96375; 97110-GO; 97116-GO; 97161-GP; 97530-GO; 99291; J0131; J0461; J0780; J1644; J1815; J1940; J2405; J2765; J3490; J7040; J7042; J7120